=== PATIENT | male | born 1960 | race Caucasian/White ===

== ENCOUNTER 2017-04-12 09:12 | Inpatient (IN) | payer OTHER, MEDICAID ==
[~2017-04-12] VITALS: Ht 170.2 cm; Wt 75.3 kg
--- NOTE | 2017-04-12 09:12 | NUR ---
PATIENT BIBA TO BED 2
--- NOTE | 2017-04-12 09:15 | NUR ---
56/M yamilet from [facility] for evaluation of seizures starting this am around 0715. Per EMS, patient had approximately 4 seizures this morning tonic clonic. When medics arrived on scene, pt had another seizure. Versed 2.5 intranasal was given. Pt arrived to ED awake, normal mentation for patient. Patient nonverbal and this is baseline for patient. Hx seizure, epilepsy, MR, sturge hinojosa syndrome, dysphagia, glaucoma. Seizure precautions applied. Pt placed in a gown, on cardiac montior and blood pressure monitoring.
[2017-04-12 09:19] VITALS: BP 151/101
--- NOTE | 2017-04-12 09:23 | NUR ---
Dr. Hurley at bedside.
[2017-04-12 09:50] LABS: BASOPHILS % (AUTO) 0.6 % (0.0-2.0); EOSINOPHILS % (AUTO) 0.2 % (0.0-4.0); HEMATOCRIT 38.2 % (36-52); HEMOGLOBIN 12.8 g/dL (12.0-18.0); LYMPHOCYTES # (AUTO) 0.5 K/uL (2.0-11.5); MEAN CORPUSCULAR HEMOGLOBIN 29 pg (27-31); MEAN CORPUSCULAR HGB CONC 34 g/dL (33-37); MEAN CORPUSCULAR VOLUME 87 fL (80-94); MONOCYTES # (AUTO) 0.2 K/uL (0.8-1.0); MONOCYTES % (AUTO) 3.6 % (1.7-9.3); NEUTROPHILS % (AUTO) 88.6 % (42.2-75.2); PLATELET COUNT (AUTO) 249 K/uL (140-450); RED BLOOD CELL COUNT(AUTO) 4.39 MIL/uL (4.20-6.10); RED CELL DISTRIBUTION WIDTH 13.3 % (11.6-13.7); WHITE BLOOD COUNT (AUTO) 6.7 K/uL (4.8-10.8)
[2017-04-12 10:11] LABS: PHENOBARBITAL < 1 ug/ml (15-40)
[2017-04-12 10:12] LABS: ANION GAP 13.9 (8-16); CARBON DIOXIDE 27.7 mmol/L (21-32); POTASSIUM 4.6 mmol/L (3.5-5.1)
[2017-04-12] MEDS ORDERED: NACL 3% 500 ML IV ONE (10:15)
[2017-04-12] MEDS ORDERED: LORazepam 2 MG/ML VIAL IVP ONE (10:30)
[2017-04-12] MEDS ORDERED: ONDANSETRON 4 MG/2 ML VIAL IVP PRN (10:35)
[2017-04-12] MEDS ORDERED: ACETAMINOPHEN 325 MG TAB PO PRN (10:35)
[2017-04-12] MEDS ORDERED: LORazepam 2 MG/ML VIAL IVP PRN (10:35)
[2017-04-12] MEDS ORDERED: DOCUSATE SODIUM 100 MG GELCAP PO PRN (10:35)
[2017-04-12] MEDS ORDERED: LEVE1000 PO (10:42)
[2017-04-12] MEDS ORDERED: POLY17PD65 GT (10:42)
[2017-04-12] MEDS ORDERED: LEVE250T7 PO (10:42)
[2017-04-12] MEDS ORDERED: CALC1CAP45 PO (10:42)
[2017-04-12] MEDS ORDERED: LACT10SO1 PO (10:42)
[2017-04-12] MEDS ORDERED: ROB1 PO (10:42)
[2017-04-12] MEDS ORDERED: OXCA300S5 GT (10:42)
[2017-04-12] MEDS ORDERED: MULT-1328 GT (10:42)
[2017-04-12] MEDS ORDERED: CHLO1TAB42 PO (10:42)
[2017-04-12] MEDS ORDERED: FLOR250 PO (10:42)
[2017-04-12] MEDS ORDERED: NACL 3% 500 ML IV SCH ×2 (10:50→17:00)
[2017-04-12] MEDS ORDERED: NACL 0.9% 1,000 ML IV SCH ×2 (10:51→11:25)
[2017-04-12] MEDS ORDERED: ACET-2619 GT (10:56)
[2017-04-12] MEDS ORDERED: IBUP-2213 GT (10:56)
[2017-04-12] MEDS ORDERED: POTA10TE30 GT (10:56)
[2017-04-12] MEDS ORDERED: BISA-213 RC (10:56)
[2017-04-12] MEDS ORDERED: CARB200T1 GT (10:56)
[2017-04-12] MEDS ORDERED: SIMV20TA1 GT (10:56)
[2017-04-12] MEDS ORDERED: TIM.5OS OP (10:56)
[2017-04-12] MEDS ORDERED: MAGN400S60 GT (10:56)
[2017-04-12] MEDS ORDERED: OXCA150T2 PO (10:56)
[2017-04-12] MEDS ORDERED: NA P135N RC (10:56)
[2017-04-12] MEDS ORDERED: [UNRECOGNIZED DRUG - CODE] TP (10:56)
[2017-04-12 10:57] LABS: PHENYTOIN (DILANTIN) < 0.5 ug/ml (10.0-20.0)
[2017-04-12] MEDS ORDERED: PHENYTOIN 1,000 MG in NACL 0.9% 100 ML IV SCH (11:30)
--- NOTE | 2017-04-12 11:35 | NUR ---
Note undone in EDM - 04/12/17 at 1214 by [email or web address] PT DENIES N/V/D; SKIN IS INTACT, PINK/WARM/DRY; AAOX4, PERRL, WITH EVEN AND STEADY GAIT; LUNGS CLEAR BL, BREATHING UNLABORED; HR EVEN AND REGULAR, BL PERIPHERAL PULSES PRESENT; BS ACTIVE X4, NO TENDERNESS TO PALPATION, NO HEPATOSPLENOMEGALLY PALPATED, RESONANT TO PERCUSSION; PT DENIES ANY FEVER, CP, SOB, OR COUGH AT THIS TIME; PT STATES 0/10 PAIN AT THIS TIME; VSS; PATIENT POSITIONED FOR COMFORT; HOB ELEVATED; BEDRAILS UP X2; BED DOWN.PATIENT PRESENTS TO ED WITH [] . PT STATES [] . DENIES N/V/D; SKIN IS PINK/WARM/DRY; AAOX4 WITH EVEN AND STEADY GAIT; LUNGS CLEAR BL; HR EVEN AND REGULAR; PT DENIES ANY FEVER, CP, SOB, OR COUGH AT THIS TIME; PATIENT STATES PAIN OF 0/10 AT THIS TIME; VSS; PATIENT POSITIONED FOR COMFORT; HOB ELEVATED; BEDRAILS UP X2; BED DOWN. ER MD MADE AWARE OF PT STATUS.PATIENT PRESENTS TO ED WITH . PT STATES . DENIES N/V/D; SKIN IS PINK/WARM/DRY; AAOX4 WITH EVEN AND STEADY GAIT; LUNGS CLEAR BL; HR EVEN AND REGULAR; PT DENIES ANY FEVER, CP, SOB, OR COUGH AT THIS TIME; PATIENT STATES PAIN OF 0/10 AT THIS TIME; VSS; PATIENT POSITIONED FOR COMFORT; HOB ELEVATED; BEDRAILS UP X2; BED DOWN. ER MD MADE AWARE OF PT STATUS.
[2017-04-12] MEDS ORDERED: BISACODYL 10 MG SUPP RC PRN (11:50)
[2017-04-12] MEDS ORDERED: SODIUM PHOSPHATE 118 ML ENEM RC PRN (11:50)
[2017-04-12] MEDS ORDERED: MAGNESIUM HYDROXIDE 2400 MG/30 ML UDC GT PRN (11:50)
[2017-04-12] MEDS ORDERED: IBUPROFEN 600 MG TAB GT PRN (11:50)
[2017-04-12] MEDS ORDERED: PIPER/TAZO 3.375GM/D5W PREMIX 50 ML IV SCH (12:00)
--- NOTE | 2017-04-12 12:53 | NUR ---
Pt resting comfortably at this time. BP 82/45. IV bolus infusing, pt tolerating well. Will continue to monitor. Caregiver at bedside.
--- NOTE | 2017-04-12 13:39 | NUR ---
Dr. Ash called and advised her about the blood pressure 75/48 after receiving the 2L bolus.
[2017-04-12] MEDS ORDERED: NOREPINEPHRINE 4 MG in DEXTROSE 5% 250 ML IV PRN (13:40)
[2017-04-12] MEDS ORDERED: ALBUTEROL SULFATE/IPRATROPIU 3 ML SOL IH PRN (13:55)
[2017-04-12 13:59] LABS: ANION GAP 12.9 (8-16); CARBON DIOXIDE 26.8 mmol/L (21-32); CREATININE 1.2 mg/dL (0.7-1.3); POTASSIUM 4.7 mmol/L (3.5-5.1)
[2017-04-12] MEDS: PIPERACILLIN/TAZOBACTAM 3.375 GM in DEXTROSE 5% 50 ML IV SCH ×2 (14:00→20:53)
[2017-04-12 14:04] LABS: ALBUMIN 2.7 g/dL (3.4-5.0); BILIRUBIN,DIRECT 0.1 mg/dL (0.0-0.3); TOTAL BILIRUBIN 0.3 mg/dL (0.0-1.0)
[2017-04-12] MEDS: GLYCOPYRROLATE 1 MG TAB PO SCH ×2 (14:45→17:39)
[2017-04-12] MEDS: carBAMazepine 200 MG TAB GT SCH ×2 (14:45→17:27)
--- NOTE | 2017-04-12 15:02 | NUR ---
Levophed decreased to 4 mcg/min. BP 119/79 HR 71 O2 sat 100%
--- NOTE | 2017-04-12 15:30 | NUR ---
Pt placed on left lateral side using pillow for support to back. Wrinkles removed from under bed. Warm blanket provided.
--- NOTE | 2017-04-12 16:06 | NUR ---
Pt resting comfortably at this time. VSS. Caregiver at bedside. Comfort needs met.
[2017-04-12 16:17] LABS: MAGNESIUM 1.8 mg/dL (1.8-2.4); PHOSPHORUS 4.5 mg/dL (2.5-4.9)
[2017-04-12 16:18] LABS: FREE T4 (FREE THYROXINE) 0.78 ng/dL (0.76-1.46); THYROID STIMULATING HORMONE 0.48 uIU/mL (0.34-3.74)
[2017-04-12 16:26] LABS: BILIRUBIN,URINE NEGATIVE (NEGATIVE); BLOOD, URINE TRACE-I (NEGATIVE); LEUKOCYTE ESTERASE ,URINE 1+ (NEGATIVE); NITRITE, URINE NEGATIVE (NEGATIVE); UGLUCOSE NEGATIVE (NEGATIVE)
[2017-04-12 16:27] LABS: APPEARANCE,URINE HAZY (CLEAR)
[2017-04-12 16:28] LABS: COLOR,URINE YELLOW (YELLOW)
[2017-04-12 16:51] LABS: RBC,URINE 0-5 (RARE) /HPF (0-5); WBC,URINE TOO MANY TO COUNT /HPF (0-5)
[2017-04-12 17:01] LABS: BARBITURATE, URINE NEGATIVE ng/ml (NEG <=200)
[2017-04-12 17:02] LABS: BENZODIAZEPINE, URINE POSITIVE ng/mL (NEG <=200); CANNABINOID, URINE NEGATIVE ng/mL (NEG <=50); COCAINE, URINE NEGATIVE ng/mL (NEG <=300); OPIATE, URINE NEGATIVE ng/mL (NEG <=2000); PHENCYCLIDINE SCREEN,URINE NEGATIVE ng/mL (NEG <=25)
[2017-04-12] MEDS: NACL 0.9% 1,000 ML IV SCH (17:06)
--- NOTE | 2017-04-12 18:01 | NUR ---
Pt repositioned to right lateral side, pillow placed behind back, pt tolerated well. Warm blanket provided. Comfort needs met. Caregiver at bedside.
[2017-04-12 18:21] LABS: ANION GAP 12.8 (8-16); CARBON DIOXIDE 25.8 mmol/L (21-32); POTASSIUM 4.6 mmol/L (3.5-5.1)
[2017-04-12 18:22] LABS: CREATININE 1.1 mg/dL (0.7-1.3)
--- NOTE | 2017-04-12 19:23 | NUR ---
Pt report given to Jacob LEMONS. Transfer of care at this time.
--- NOTE | 2017-04-12 19:25 | NUR ---
SPOKE WITH MERCHANDISER RETAIL REPRESENTATIVE. OK TO GO ICU5.
[2017-04-12 19:26] LABS: PROTHROMBIN TIME 9.2 secs (10.8-13.4)
--- NOTE | 2017-04-12 20:05 | NUR ---
Patient will be admitted to care of ICU. Admited to DR. DONAHUE. Will go to room ICU-5. Belongings list completed. Report to NICKY LEMONS.
--- NOTE | 2017-04-12 20:10 | NUR ---
RECEIVED PT FROM ER VIA COLIN ACCOMAPNIED BY RN AND EMT. RECEIVED REPORT FROM CRISTO DIAS. INITIAL ASSESSMENT COMPLETED. PT IS NON VERBAL. ATTACHED TO LABOR ECONOMIST, PULSE OXIMETER. O2 @ 2LPM VIA NASAL CANNULA. IV ACCESS AT RIGHT WRIST 22G, IVF INFUSING WELL AND LEFT FOREARM 22G, ON LEVOPHED DRIP. GT IN PLACE. BED IN LOW POSITION. SEIZURE PRECAUTION, WITH SEIZURE PADS ATTACHED. WILL ATTACHED SCDS. SAFETY MEASURE ENSURE. WILL CONTINUE TO MONITOR.
[2017-04-12 20:15] VITALS: BP 133/101
[2017-04-12] MEDS: ALBUTEROL SULFATE/IPRATROPIU 3 ML SOL IH SCH (20:28)
[2017-04-12] MEDS ORDERED: PIPERACILLIN/TAZOBACTAM 3.375 GM VIAL IV ONE (20:29)
[2017-04-12 20:30] VITALS: BP 150/51
[2017-04-12 20:45] VITALS: BP 132/93
[2017-04-12] MEDS ORDERED: OXcarbazepine 150 MG TAB PO SCH (21:00)
[2017-04-12] MEDS ORDERED: VITAMIN D3 PO SCH (21:00)
[2017-04-12] MEDS ORDERED: LEVETIRACETAM 250 MG PO SCH (21:00)
[2017-04-12] MEDS: TIMOLOL OP 0.5% 5 ML BTL OP SCH (21:00)
[2017-04-12] MEDS ORDERED: [UNRECOGNIZED DRUG - OTHER] PO SCH (21:00)
[2017-04-12] MEDS ORDERED: OXCARBAZEPINE 300 MG GT SCH (21:00)
[2017-04-12] MEDS: NYSTATIN POW 100 MU/GM 15 GM BTL TP SCH (21:00)
[2017-04-12] MEDS ORDERED: levETIRAcetam 500 MG TAB PO SCH (21:00)
[2017-04-12] MEDS ORDERED: CALCIUM CARBONATE PO SCH (21:00)
[2017-04-12] MEDS ORDERED: NON-FORMULARY ITEM (Saccharomyces Boulardii* (Florastor*) 250 MG) PO SCH (21:00)
[2017-04-12 21:06] LABS: ANION GAP 14.8 (8-16); POTASSIUM 4.8 mmol/L (3.5-5.1)
--- NOTE | 2017-04-12 21:10 | NUR ---
DR. RAYMUNDO AT BEDSIDE. IVF DECREASE TO 10ML/HR ORDERED. 2049 LEVOPHED DRIP HELD. PT BP 132/93.
[2017-04-12] MEDS: PHENYTOIN 100 MG/4 ML UDC GT SCH (21:47)
[2017-04-12] MEDS: SIMVASTATIN 20 MG TAB GT SCH (21:47)
[2017-04-12] MEDS: POLYETHYLENE GLYCOL 17 GM/PKT GT SCH (21:48)
[2017-04-12 22:00] VITALS: BP 124/53
[2017-04-12] MEDS: VITAMIN D 400 IU TAB GT SCH (22:53)
[2017-04-12] MEDS: OXcarbazepine 150 MG TAB PO SCH (22:54)
[2017-04-12] MEDS: CALCIUM CARBONATE 500 MG TAB GT SCH (22:54)
[2017-04-12] MEDS: levETIRAcetam 100 MG/ML ORASYR GT SCH (22:55)
[2017-04-13] VITALS (9 sets, daily range): BP systolic 90–148; BP diastolic 51–104
--- NOTE | 2017-04-13 | NUR ---
0000 DOSE OF ZOSYN NOT GIVEN, TOO CLOSE TO PREVIOUS DOSE (2052).
--- NOTE | 2017-04-13 00:50 | NUR ---
UNABLE TO OBTAIN SPUTUM AT THIS TIME, SPUTUM CUP LEFT AT BEDSIDE
--- NOTE | 2017-04-13 04:30 | NUR ---
MORNING CARE DONE. PT TOLERATED WELL.
[2017-04-13 05:05] LABS: BASOPHILS % (AUTO) 0.6 % (0.0-2.0); EOSINOPHILS # (AUTO) 0.1 K/uL (0-0.4); HEMATOCRIT 36.9 % (36-52); HEMOGLOBIN 12.5 g/dL (12.0-18.0); LYMPHOCYTES # (AUTO) 0.8 K/uL (2.0-11.5); LYMPHOCYTES % (AUTO) 10.5 % (20.5-51.1); MEAN CORPUSCULAR HEMOGLOBIN 30 pg (27-31); MEAN CORPUSCULAR HGB CONC 34 g/dL (33-37); MEAN CORPUSCULAR VOLUME 89 fL (80-94); MONOCYTES # (AUTO) 0.4 K/uL (0.8-1.0); MONOCYTES % (AUTO) 5.9 % (1.7-9.3); PLATELET COUNT (AUTO) 186 K/uL (140-450); RED BLOOD CELL COUNT(AUTO) 4.14 MIL/uL (4.20-6.10); RED CELL DISTRIBUTION WIDTH 13.3 % (11.6-13.7); WHITE BLOOD COUNT (AUTO) 7.3 K/uL (4.8-10.8)
[2017-04-13] MEDS: PIPERACILLIN/TAZOBACTAM 3.375 GM in DEXTROSE 5% 50 ML IV SCH ×5 (05:40→17:32)
--- NOTE | 2017-04-13 06:13 | NUR ---
DR. DONAHUE AND DR. RAYMUNDO NOTIFIED CT HEAD WITHOUT CONTRAST WAS NOT DONE SINCE PATIENT IS RESTLESS AND KEEPS MOVING EVERYTIME YOU TOUCH HIM AND WILL NOT STAY STILL. DR. DONAHUE SAID THEY WILL LET ICU KNOW LATER IF THEY WILL CANCEL OR NOT THE CT HEAD. CHARGE NURSE AWARE. WILL ENDORSE TO AM SHIFT.
[2017-04-13] MEDS ORDERED: LORazepam 2 MG/ML VIAL IVP PRN (06:15)
--- NOTE | 2017-04-13 06:36 | NUR ---
REPORT GIVEN TO CRISTO SIMS.
[2017-04-13] MEDS: ALBUTEROL SULFATE/IPRATROPIU 3 ML SOL IH SCH ×3 (06:57→18:48)
[2017-04-13 07:02] LABS: ANION GAP 12.9 (8-16); CARBON DIOXIDE 25.9 mmol/L (21-32); CREATININE 0.9 mg/dL (0.7-1.3); POTASSIUM 3.8 mmol/L (3.5-5.1)
[2017-04-13 07:19] LABS: CHOL/HDL RATIO 1.9 (1-4.5); MAGNESIUM 1.8 mg/dL (1.8-2.4); PHOSPHORUS 2.9 mg/dL (2.5-4.9)
--- NOTE | 2017-04-13 07:20 | NUR ---
RECEIVED REPORT FORM CRISTO SIMS AT BEDSIDE, PT IS ASLEEP, VSS, FLACC 0, NO S/S OF DISTRESS, CLEAR LUNG SOUNDS, SR ON PRECISION LAYOUT WORKER, SOFT ABDOMEN WITH ACTIVE BOWEL SOUNDS, GT IN PLACE, WITH 0 RESIDUALS, ON PUREE DIET, IN CONTINENT, RIGID TO ALL EXTREMITIES, SKIN IS WARM AND DRY TO TOUCH, OPEN WOUND PRESENT (SEE WOUND ASSESSMENT), PERIPHERAL LINE TO RIGHT WRIST, 22GA, PATENT AND SL, LEFT FOREARM 22GA, RUNNING NS AT 10ML/HR, HOB ELEVATED 30 DEGREES, SAFETY PRECAUTION AND SEIZURE PRECAUTION IN PLACE, WILL CONTINUE TO MONITOR. Addendum: 04/13/17 at 1037 by Parth Garzon RN LEFT FACE HEMANGIOMA NOTED.
--- NOTE | 2017-04-13 07:40 | NUR ---
DR. PICKETT CAME IN TO SEE PT AT BEDSIDE, NO NEW ORDER AT THIS TIME.
--- NOTE | 2017-04-13 08:20 | NUR ---
PT IS OFF UNIT FOR CT HEAD VIA BED, ACCOMPANIED BY RIVERS AND LAKES BOATMAN AND RN.
--- NOTE | 2017-04-13 08:30 | NUR ---
TRIED TO FEED PT BF AGAIN, PT IS SHAKING HIS HEAD, NOT ABLE TO EAT AT THIS TIME. SNF MADE AWARE.
--- NOTE | 2017-04-13 08:53 | NUR ---
PATIENT HAS BEEN SCREENED AND CATEGORIZED HIGH NUTRITION RISK. PATIENT WILL BE SEEN WITHIN 1-2 DAYS OF ADMISSION. 04/12/17-04/13/[address]
[2017-04-13] MEDS ORDERED: VANCOMYCIN PER PHARMACY MC PRN (08:55)
[2017-04-13] MEDS ORDERED: [UNRECOGNIZED DRUG - OTHER] PO SCH (09:00)
[2017-04-13] MEDS ORDERED: NON-FORMULARY ITEM (Lactulose 15 ML) PO SCH (09:00)
[2017-04-13] MEDS ORDERED: VANCOMYCIN 1GM/DEXT 5% PREMIX 200 ML IV SCH (09:00)
[2017-04-13] MEDS ORDERED: NON-FORMULARY ITEM (Multivitamin with Minerals (Multivitamins with Minerals) 1 TAB) GT SCH (09:00)
--- NOTE | 2017-04-13 09:00 | NUR ---
PT IS BACK FROM CT. PT IS AGITATED, MOVING AROUND, REFUSED TO EAT BF, PULLED OUT O2 TUBE, REPOSITIONED PT WITH COMFORT POSITION, WILL CONTINUE TO MONITOR. PT'S CAREGIVER CAME TO SEE PT AT BEDSIDE, ANSWERED ALL THE QUESTIONS SHE NEEDED.
[2017-04-13] MEDS: MULTIVITAMIN/MINERALS 1 TAB GT SCH (09:04)
[2017-04-13] MEDS: TIMOLOL OP 0.5% 5 ML BTL OP SCH ×2 (09:04→22:29)
[2017-04-13] MEDS: LACTOBACILLUS RHAMNOSUS GG 1 EACH CAP GT SCH (09:04)
[2017-04-13] MEDS: carBAMazepine 200 MG TAB GT SCH ×3 (09:05→16:59)
[2017-04-13] MEDS: PHENYTOIN 100 MG/4 ML UDC GT SCH ×2 (09:06→22:29)
[2017-04-13] MEDS: LACTULOSE 20 GM/30 ML UDC GT SCH (09:06)
[2017-04-13] MEDS: levETIRAcetam 100 MG/ML ORASYR GT SCH ×2 (09:07→22:30)
[2017-04-13] MEDS: NYSTATIN POW 100 MU/GM 15 GM BTL TP SCH ×2 (09:08→21:00)
--- NOTE | 2017-04-13 09:20 | NUR ---
MEDICATION GIVEN VIA GT, PT TOLERATED WELL.
[2017-04-13] MEDS: CALCIUM CARBONATE 500 MG TAB GT SCH ×2 (09:51→22:30)
[2017-04-13] MEDS: GLYCOPYRROLATE 1 MG TAB PO SCH ×3 (09:52→16:59)
[2017-04-13] MEDS: OXcarbazepine 150 MG TAB PO SCH ×2 (09:52→22:31)
[2017-04-13] MEDS: VITAMIN D 400 IU TAB GT SCH ×2 (09:53→22:30)
[2017-04-13] MEDS: POTASSIUM CHLORIDE 20% 40 MEQ/15 ML UDC GT SCH (09:54)
[2017-04-13] MEDS ORDERED: POTASSIUM CHLORIDE 20% 40 MEQ/15 ML UDC ONE (09:54)
--- NOTE | 2017-04-13 10:00 | NUR ---
PT IS STILL MOVING AROUND IN BED, VSS, NO S/S OF DISTRESS, POSITION CHANGED FOR OFF LOAD PRESSURE.
--- NOTE | 2017-04-13 11:00 | NUR ---
US AT BEDSIDE
[2017-04-13] MEDS ORDERED: IBUPROFEN 400 MG TAB ONE (11:25)
[2017-04-13] MEDS: VANCOMYCIN 750 MG in DEXTROSE 5% 250 ML IV SCH ×2 (11:27→22:48)
--- NOTE | 2017-04-13 11:27 | NUR ---
PT IS VERY RESTLESSNESS, MOVING HEAD AND WAVING HANDS A LOT, PAIN MEDICATION GIVEN. WILL CONTINUE TO MONITOR.
--- NOTE | 2017-04-13 12:00 | NUR ---
TRIED TO FEED PT AGAIN, PT NOT ABLE TO SWALLOW AND COUGHING THE FOOD OUT, NOTED.
--- NOTE | 2017-04-13 12:25 | NUR ---
DR. BANKS CAME TO SEE PT AT BEDSIDE, NO NEW ORDER AT THIS TIME.
--- NOTE | 2017-04-13 14:00 | NUR ---
PT IS ASLEEP IN BED, NO S/S OF DISTRESS, VSS, POSITION CHANGED FOR OFF LOAD PRESSURE.
--- NOTE | 2017-04-13 14:54 | NUR ---
04/13/2017 RD INITIAL ASSESSMENT COMPLETED PLEASE REFER TO NUTRITION ASSESSMENT UNDER CARE ACTIVITY FOR ESTIMATED NUTRITIONAL NEEDS. CONTINUE PUREED DIET TOLERATED RN TO CONTINUE TO ASSIST WITH FEEDS DURING MEALS IF CONSIDERING USING G-TUBE FOR NUTIRTION SUPPORT, BOOST PLUS, 1 CAN 4 TIMES PER DAY WILL PROVIDE 1440 KCALS AND 56 GM PRO/DAY TO MEET 97% EST KCAL AND 95% EST PRO NEEDS/DAY. RD TO FOLLOW-UP IN 2-3 DAYS PATIENT IS HIGH RISK. POPEYE [address]
--- NOTE | 2017-04-13 15:40 | NUR ---
WOUND CARE EVALUATION NOTE: REASON FOR EVALUATION: LOW EDMOND SCORE COMPLETE SKIN ASSESSMENT DONE ON THIS 56 Y/O MALE PATIENT TO [facility], WITH INITIAL DIAGNOSIS OF SEIZURE ACTIVITY. PAST MEDICAL HISTORY INCLUDE STURGE QUEZADA. ALL ABOVE INFORMATION WAS OBTAINED FROM THE ADMISSION H&P. LABS ARE WBC 7.3, H/H 12.5/36.9, GLUCOSE 117 AND ALBUMIN 2.7, PT/INR 9.2/0.9 AND PTT 33.3. CURRENT MEDS INCLUDE VANCOMYCIN, SIMVASTATIN, ALBUTEROL AND NYSTATIN. PATIENT IS AWAKE, UNABLE TO FOLLOW COMMANDS. SKIN WARM TO TOUCH WNL, TOENAILS ARETHIN AND SHORT, NO EDEMA,NO HAIR GROWTH AND BILATERAL PEDAL PULSES.LOWER EXTREMITIES CONTRACTURE, BLADDER AND BOWEL INCONTINENT. NEEDS MAX ASSISTANCE IN TURNING. PT IS RESTLESS, INITIAL PLAN OF CARE AND PRESSURE PREVENTIVE MEASURES DISCUSSED WITH PRIMARY RN. INTEGUMENTARY: L/R GROINS- INTERTRIGO RIGHT / LEFT BUTTOCKS -INCONTINENT ASSOCIATE DERMATITIS (IAD) WITH DRY PEELING SKIN POSSIBLE FROM FRICTION SACRALCOCCYX AND L/R MEDIAL KNEES-BLANCHABLE REDNESS PERINEUM-IAD RUQ ABD. MULTIPLE DRY SCABS WITH LARGEST MEASURED 0.2X0.2CM RECOMMENDATIONS: -CLEANSE L/R GROINS WITH SOAP AND WATER, PAT DRY, APPLY ANTIFUNGAL CREAM BIDWC AND PRN IF SOILING -SACRALCOCCYX, BILATERAL BUTTOCKS, PERINEUM: CLEANSE WITH MILD SOAP AND WATER, PAT DRY, APPLY HYDRAGUARD BIDWC AND PRN WITH SOILING LEAVE OPEN TO AIR-PAINT -KEEP R/L KNEES SEPERATE BY POSITION WITH PILLOWS TO AVOID FRICTION -TURN AND REPOSITION PATIENT Q2H -ASSESS AND MONITOR SKIN CONDITION DURING POSITION CHANGE, PLEASE PAY ATTENTION TO L/R BUTTOCKS AND KNEES -OFFLOAD BILATERAL HEELS BY PLACING PILLOWS UNDER CALVES AT ALL TIMES, UNLESS OTHERWISE CONTRAINDICATED -KEEP SKIN CLEAN AND DRY AT ALL TIMES. -PRESSURE REDISTRIBUTION SURFACE THERAPY. RECOMMENDATIONS DISCUSSED WITH PRIMARY RN AND DR. BLANCHARD WILL FOLLOW UP PATIENT Q7-10 DAYS AND PRN. PLEASE CONTACT WOUND CARE NURSE FOR ANY QUESTIONS AND CHANGES IN WOUND CONDITION.
--- NOTE | 2017-04-13 16:00 | NUR ---
PM CARE PROVIDED, PT TOLERATED WELL, POSITION CHANGED FOR OFF LOAD PRESSURE. VSS.
[2017-04-13] MEDS: NACL 0.9% 1,000 ML IV SCH ×2 (16:35→22:27)
[2017-04-13] MEDS ORDERED: NACL 0.9% 1,000 ML IV SCH (18:30)
--- NOTE | 2017-04-13 18:30 | NUR ---
PT BP KEEP DROPPING, NOT ABLE TO TRANSFER AT THIS TIME, DR. RAYMUNDO MADE AWARE, AND CAME TO CHECK ON PT AT BEDSIDE, WILL PUT ORDER IN AND CARRY OUT.
--- NOTE | 2017-04-13 18:55 | NUR ---
PATIENT UNABLE TO KEEP HHN MASK ON AND PATIENT GETTING RESTLESS, TOOK MASK OFF SO PATIENT MAY CALM DOWN, ONLY 3 MINUTES OF HHN MEDICATION MAY HAVE BEEN ADMINISTERED
--- NOTE | 2017-04-13 19:30 | NUR ---
REPORT GIVEN TO CRISTO MORALES AT BEDSIDE FOR CONTINUE OF CARE, PT IS IN STABLE CONDITION AT THIS TIME.
--- NOTE | 2017-04-13 19:45 | NUR ---
RECEIVED REPORT FROM MAURICIO LEMONS. PT A/O X 1. DOES NOT FOLLOW COMMAND. NONVERBAL. PERRL NOTED. FLACC 0. EQUAL, UNLABORED BREATH NOTED. ON 2 L NC. TOLERATING WELL. SKIN NONINTACT. WOUND NOTED ON BUTTOCKS. NO DRAINAGE NOTED. CONTINUING WOUND AND SKIN CARE TX ORDERED. IV NOTED ON LEFT FOREARM, FOREARM COLD TO TOUCH AND APPEARS SWOLLEN. PT AGITATED TO ASSESSMENT, WILL REASSESS AFTER PT CALMS AND NECESSARY SUPPLIES ARE GATHERED. IV NOTED ON R WRIST. CANNULA APPEARS TO BE PULLED OUT, WILL REMOVE PROPERLY WHEN REASSESSING PATIENT PT IS WAVING BOTH ARM AWAY FROM TOUCH. SWELLING NOTED ON BILATERAL FOOT. PT APPEARS TO BE STIFF IN THE EXTREMITIES. ABDOMEN SOFT, NONTENDER. BOWEL SOUND PRESENT X [address] CONDOM CATHETER IN PLACE. NO URINE OUTPUT OF NOW. NO S/SX OF ACUTE DISTRESS NOTED. VITALS WITHIN NORMAL. BED AT LOWEST SETTING. CALL LIGHT WITHIN REACH. WILL CONTINUE TO MONITOR. Addendum: 04/13/17 at 2238 by Sam Oliver RN GTUBE IN PLACE. 0 RESIDUAL NOTED.
--- NOTE | 2017-04-13 20:00 | NUR ---
ABNORMALITY NOTED ON PT'S LEFT UPPER EXTREMITY TO HAND. LEFT UPPER ARM NOTED SWOLLEN AND MILDLY HARD ON TOUCH. LEFT FOREARM ALSO NOTED TO BE SWOLLEN, HARD TO TOUCH, AND COLD. WEEPING NOTED TO LEFT FOREARM, MULTIPLE BLISTER NOTED TO LEFT FOREARM. LEFT HAND APPEARS SWOLLEN AND DISCOLORED WITH BLUE FINGERTIPS. REMOVED ARM BANDS. HOT COMPRESS PLACED ON LEFT ARM. LEFT ARM ELEVATED. WILL CONTINUE TO MONITOR. LEFT FOREARM IV REMOVED. RIGHT WRIST IV ALSO REMOVED AFTER PT PULLED CANNULA OUT.
--- NOTE | 2017-04-13 20:40 | NUR ---
MD CONTACTED REGARDING INABILITY TO PLACE NEW IV AND NO IV ACCESS. AWAITING NEW ORDERS.
[2017-04-13] MEDS ORDERED: LORazepam 2 MG/ML VIAL IVP SCH (20:45)
[2017-04-13] MEDS: SIMVASTATIN 20 MG TAB GT SCH (21:00)
[2017-04-13] MEDS ORDERED: PHENYTOIN 100 MG/4 ML UDC ONE (21:02)
[2017-04-13] MEDS ORDERED: LORazepam 2 MG/ML VIAL ONE (21:14)
--- NOTE | 2017-04-13 21:30 | NUR ---
DR. RAYMUNDO AT BEDSIDE FOR CENTRAL LINE INSERTION. CONSENT IN CHART. TIME OUT DONE. ULTRASOUND AT BEDSIDE . WILL CONTINUE TO MONITOR.
--- NOTE | 2017-04-13 21:32 | NUR ---
ATIVAN GIVEN IM INSTEAD OF IV D/T NO IV SITE. ORDERED BY DR. RAYMUNDO.
--- NOTE | 2017-04-13 22:21 | NUR ---
CENTRAL LINE PLACEMENT DONE. XRAY AT BEDSIDE TO PERFORM CONFIRMATION XRAY.
[2017-04-13] MEDS ORDERED: LORazepam 2 MG/ML VIAL IM/IVP SCH (22:25)
--- NOTE | 2017-04-13 22:26 | NUR ---
MIKA TO USE CENTRAL LINE PER DR. RAYMUNDO
[2017-04-13] MEDS: POLYETHYLENE GLYCOL 17 GM/PKT GT SCH (22:29)
--- NOTE | 2017-04-13 22:30 | NUR ---
BED BATH GIVEN. PT TOLERATED WELL. WILL CONTINUE TO MONITOR FOR CHANGES.
--- NOTE | 2017-04-13 22:38 | NUR ---
0 RESIDUAL NOTED IN GTUBE. MEDICATION ADMINISTERED ORDERED. TOLERATED WELL.
--- NOTE | 2017-04-13 23:00 | NUR ---
PT SLEEPING IN BED. NO S/SX OF ACUTE DISTRESS NOTED. FLACC 0. CALM AT THIS TIME.
[2017-04-14] VITALS (9 sets, daily range): BP systolic 85–109; BP diastolic 44–73
--- NOTE | 2017-04-14 | NUR ---
PT REMAINS SLEEPING. AWAKEN TO TOUCH. NO S/SX OF ACUTE DISTRESS. WILL CONTINUE TO MONITOR.
[2017-04-14] MEDS: NACL 0.9% 1,000 ML IV SCH ×3 (00:39→21:04)
[2017-04-14] MEDS: PIPERACILLIN/TAZOBACTAM 3.375 GM in DEXTROSE 5% 50 ML IV SCH ×5 (00:39→23:30)
--- NOTE | 2017-04-14 01:00 | NUR ---
PT REMAINS SLEEPING. FLACC 0. VITALS SIGN REMAINS STABLE.
--- NOTE | 2017-04-14 03:00 | NUR ---
PT SLEEPING IN BED. NO S/SX OF ACUTE DISTRESS NOTED. FLACC 0. CALM AT THIS TIME.
--- NOTE | 2017-04-14 04:00 | NUR ---
LEFT ARM SWELLING DISSIPATING. LEFT UPPER EXTREMITY SKIN IS NOW DRY, WARM, PINK. NO DISCOLORATION NOTED ON HAND OR NAIL BED. BLISTER HAS GONE DOWN SIGNIFICANTLY. WILL CONTINUE TO MONITOR.
[2017-04-14 05:15] LABS: BASOPHILS # (AUTO) 0.2 K/uL (0.00-0.22); BASOPHILS % (AUTO) 3.2 % (0.0-2.0); EOSINOPHILS # (AUTO) 0.1 K/uL (0-0.4); EOSINOPHILS % (AUTO) 1.7 % (0.0-4.0); HEMATOCRIT 29.6 % (36-52); HEMOGLOBIN 9.6 g/dL (12.0-18.0); LYMPHOCYTES # (AUTO) 1.6 K/uL (2.0-11.5); LYMPHOCYTES % (AUTO) 32.5 % (20.5-51.1); MEAN CORPUSCULAR HEMOGLOBIN 29 pg (27-31); MEAN CORPUSCULAR HGB CONC 32 g/dL (33-37); MEAN CORPUSCULAR VOLUME 89 fL (80-94); MONOCYTES # (AUTO) 0.4 K/uL (0.8-1.0); MONOCYTES % (AUTO) 8.4 % (1.7-9.3); NEUTROPHILS # (AUTO) 2.5 K/uL (1.8-7.7); NEUTROPHILS % (AUTO) 54.2 % (42.2-75.2); PLATELET COUNT (AUTO) 148 K/uL (140-450); RED BLOOD CELL COUNT(AUTO) 3.32 MIL/uL (4.20-6.10); RED CELL DISTRIBUTION WIDTH 13.6 % (11.6-13.7); WHITE BLOOD COUNT (AUTO) 4.8 K/uL (4.8-10.8)
--- NOTE | 2017-04-14 05:34 | NUR ---
DR. BLANCHARD AT BEDSIDE TO SEE PT. UPDATE GIVEN. AWAITING NEW ORDERS.
--- NOTE | 2017-04-14 06:30 | NUR ---
PT AWAKE IN BED. MOVING BOTH ARM IN THE AIR. APPEARS CALM AT THIS TIME. FLACC 0. NO S/SX OF ACUTE DISTRESS NOTED.
[2017-04-14 06:39] LABS: ANION GAP 12.1 (8-16); CARBON DIOXIDE 24.9 mmol/L (21-32); CREATININE 1.2 mg/dL (0.7-1.3)
[2017-04-14 06:42] LABS: MAGNESIUM 2.2 mg/dL (1.8-2.4); PHOSPHORUS 3.6 mg/dL (2.5-4.9)
--- NOTE | 2017-04-14 07:30 | NUR ---
RECEIVED PT FROM PM SHIFT RN. PT IS NON-VERBAL AND UNABLE TO FOLLOW COMMAND. RESPIRATION IS EVEN AND UNLABORED, ON OXYGEN 2L VIA NASAL CANNULAR. SINUS RHYTHM ON THE MONITOR.ABDOMEN IS SOFT AND NON TENDER. PT ON CONDOM CATH WITH URINE OUTPUT FROM PM SHIFT. PT HAS MITTEN BILATERALLY. SEIZURE PRECAUTION IMPLEMENTED WITH PADDING AT THE SIDE OF THE BED. SKIN WARM TO TOUCH. IV SITE AT LEFT IJ CENTRAL LINE WITH TRIPLE LUMENS PATENT AND INTACT WITH NS INFUSING AT 75ML/HR. SAFETY PRECAUTION, BED IN LOWEST POSITION, CALL LIGHT WITHIN REACH. WILL CONTINUE TO MONITOR.
[2017-04-14] MEDS: ALBUTEROL SULFATE/IPRATROPIU 3 ML SOL IH SCH ×3 (08:03→19:19)
--- NOTE | 2017-04-14 08:05 | NUR ---
RESIDENT GROUP IN TO SEE PT. REPORTED NO URINE OUTPUT FROM PM SHIFT. WILL FOLLOW UP ON ORDERS.
[2017-04-14] MEDS: LACTULOSE 20 GM/30 ML UDC GT SCH (09:32)
[2017-04-14] MEDS: PHENYTOIN 100 MG/4 ML UDC GT SCH ×2 (09:33→21:03)
[2017-04-14] MEDS: MULTIVITAMIN/MINERALS 1 TAB GT SCH (09:33)
[2017-04-14] MEDS: LACTOBACILLUS RHAMNOSUS GG 1 EACH CAP GT SCH (09:33)
[2017-04-14] MEDS: carBAMazepine 200 MG TAB GT SCH ×3 (09:33→16:45)
--- NOTE | 2017-04-14 09:43 | NUR ---
DR. TOM BLANCHARD IN TO SEE PT AND NOTIFIED OF PHENYTOIN LEVAL 8.7. ATTEMPTED TO FEED THE PT HOWEVER PT UNABLE TO SWALLOW AT THIS TIME. DR.CRYSTAL BLANCHARD MADE AWARE AND STATED THAT HOLD PO DIET UNTIL SEEN BY PROVIDER EDUCATION SPECIALIST AND ST MORRELL. CHARGE NURSE IS CALLING SPEECH THERAPIST FOR ST MORRELL ORDER. WILL CONTINUE TO MONITOR AND FOLLOW UP ON ORDERS.
[2017-04-14] MEDS: GLYCOPYRROLATE 1 MG TAB PO SCH ×3 (09:44→16:46)
[2017-04-14] MEDS: levETIRAcetam 100 MG/ML ORASYR GT SCH ×2 (09:45→20:48)
[2017-04-14] MEDS: CALCIUM CARBONATE 500 MG TAB GT SCH ×2 (09:45→20:47)
[2017-04-14] MEDS: OXcarbazepine 150 MG TAB PO SCH ×2 (09:47→20:47)
[2017-04-14] MEDS: VITAMIN D 400 IU TAB GT SCH ×2 (09:47→20:48)
[2017-04-14] MEDS ORDERED: POTASSIUM CHLORIDE 20% 40 MEQ/15 ML UDC ONE (09:56)
[2017-04-14] MEDS: POTASSIUM CHLORIDE 20% 40 MEQ/15 ML UDC GT SCH (09:58)
[2017-04-14] MEDS: TIMOLOL OP 0.5% 5 ML BTL OP SCH ×2 (10:00→20:48)
--- NOTE | 2017-04-14 10:00 | NUR ---
SPEECH THERAPIST IN TO SEE PT FOR ST EVAL ORDER. WILL FOLLOW UP ON ORDERS.
[2017-04-14] MEDS: NYSTATIN POW 100 MU/GM 15 GM BTL TP SCH ×2 (10:01→21:00)
--- NOTE | 2017-04-14 10:10 | NUR ---
DR. CASSIDY IN TO SEE PT. WILL FOLLOW UP ON ORDERS.
--- NOTE | 2017-04-14 10:15 | NUR ---
CHARGE NURSE INFORMED ME THAT PT'S MRSA NARE SCREEN RESULT NOTED WITH POSITIVE AND DR. TOM BLANCHARD WAS NOTIFIED. WILL FOLLOW UP ON ORDERS.
--- NOTE | 2017-04-14 10:24 | NUR ---
RESOLUTION AGENT note (bedside swallow evaluation completed) [id number]. Bedside swallow evaluation completed, please see report for details. RESOLUTION AGENT provided pt with education regarding purpose of evaluation and rationale for recommendations. Pt unable to benefit from education provided at this time. No family/caregivers present at this time. Recommend: 1) STRICT NPO (oral cares only) 2) continue alternative method(s) of nutrition/hydration/medication vs comfort measures, as appropriate 3) no further RESOLUTION AGENT intervention indicated at this time. Physician may reorder if pt's status improves/warrants, as appropriate. G-codes: [id number] [facility] NOMS level 1. PVE for d/w RN (Kane) prior to and following bedside swallow evaluation completion.
[2017-04-14] MEDS: CHLORHEXADINE GLUC 2% CLOTH TP SCH (11:20)
--- NOTE | 2017-04-14 11:35 | NUR ---
REPORTED TO DR. TOM BLANCHARD REGARDING UNSUCCESSFUL INSERTION OF WEST CATH DUE TO MEETING RESISTANCE DURING INSERTION AND NO URINE NOTED. NOTIFIED DR. BLANCHARD ABOUT ST EVAL AND RECOMMENDATION. WILL FOLLOW UP ON ORDERS.
--- NOTE | 2017-04-14 12:00 | NUR ---
CALLED IN PLACE TO ULTRASOUND DEPT FOR FOLLOW UP THE ORDER AND THEY MADE AWARE OF IT.
--- NOTE | 2017-04-14 12:35 | NUR ---
CALLED LAB FOR FOLLOW UP THE VANCOMYCIN TROUGH LEVEL STILL PENDING RESULT AND THEY STATED THAT THEY AWARE OF IT AND STILL WORKING ON IT. PHARMACY MADE AWARE. WILL CONTINUE TO MONITOR.
--- NOTE | 2017-04-14 13:00 | NUR ---
CALLED ULTRASOUND DEPT AND REQUESTED TO HAVE DONE FOR THIS PT'S ULTRASOUND OF KIDNEY TO CHECK BLADDER RESIDUAL. THEY STATED THAT SOMEONE WILL BE HERE SOON. DR. TOM BLANCHARD AWARE.
--- NOTE | 2017-04-14 13:00 | NUR ---
Attempted to contact patient's [facility] caseworker intake Larissa Lagos . No response and this physician underwriter left her a Voicemail MSG to return call [facility].
--- NOTE | 2017-04-14 14:00 | NUR ---
DR. BANKS IN TO SEE PT AND WILL FOLLOW UP ON ORDER. ULTRASOUND DEPT WAS CALLED AND REQUESTED TO COME FOR ULTRASOUND [place]. THEY STATED THAT SOMEONE IS COMING ANYTIME SOON.
--- NOTE | 2017-04-14 14:30 | NUR ---
RECEIVED PATIENT FROM EMERGENCY ROOM NURSE. PATIENT HAS AN IJV CENTRAL LINE IN PLACE ON THE LEFT SIDE. PATIENT IS AWAKE BUT APHASIC. PATIENT HAS DARK RED FACIAL BROOK NOTED ON LEFT SIDE OF PATIENT'S FACE COVERING MOST OF HIS EYE. PATIENT IS APHASIC AND NOT ORIENTED TO HIS NAME. PATIENT BLOOD PRESSURE IS 96/53 AT THIS TIME. NO SEIZURES NOTED. SEIZURES PRECAUTIONS IN PLACE FOR PATIENT. SKIN ABRASION NOTED ON PATIENT'S LEFT ARM AND COVERED WITH TRANSPARENT DRESSING. PATIENT HAS MITTENS ON BILATERAL UPPER EXTREMITIES. G-TUBE NOTED ON ABDOMEN INTACT AND USED FOR MEDICATIONS. BED LOWERED AND UPDATED BOARD. WILL CONTINUE TO MONITOR PATIENT.
--- NOTE | 2017-04-14 14:30 | NUR ---
PATIENT WAS TRANSFERRED TO TELEMETRY UNIT ROOM 115 AND REPORT GIVEN TO CRISTO NUNN AT BEDSIDE. PT IS STABLE.
--- NOTE | 2017-04-14 15:20 | NUR ---
16F WEST CATHETER INSERTED. PATIENT TOLERATED WELL. WEST CATHETER DRAINING DARK BRO URINE
[2017-04-14] MEDS ORDERED: carBAMazepine 200 MG TAB ONE (16:39)
--- NOTE | 2017-04-14 17:45 | NUR ---
MADE DR BLANCHARD AWARE OF PATIENT'S TEMP OF 96 DEGREES FAHRENHEIT. ROOM THERMOSTAT SET TO WARM AND PATIENT COVERED WITH BLANKETS. PATIENT ASLEEP WITH NO S/S OF DISTRESS NOTED. PER DR BLANCHARD, CONTINUE TO MONITOR PATIENT
[2017-04-14] MEDS ORDERED: ALBUTEROL SULFATE/IPRATROPIU 3 ML SOL IH ONE (19:00)
--- NOTE | 2017-04-14 19:25 | NUR ---
GAVE BEDSIDE REPORT TO NIGHTSHIFT NURSE. PATIENT IS CURRENTLY RECEIVING A BREATHING TREATMENT. PATIENT IS IN STABLE CONDITION.
--- NOTE | 2017-04-14 19:28 | NUR ---
RECEIVED FROM AM RN IN BED SLEEPING. WAKES UP WHEN TOUCHED. APHASIC AND MENTALLY CHALLENGED PT. CENTRAL LINE TO LEFT IJV. WITH DRESSING INTACT. TOTAL CARE. TELEMETRY MONITORING. DX. OF SEIZURES. WEST CATHETER IN PLACE DRAINING WITH YELLOW URINE. GT IN PLACE. SIDERAILS PADDED FOR SEIZURE PRECAUTIONS. NEEDS WILL BE ANTICIPATED AND WILL BE MET. WILL BE TURNED Q 2H.
[2017-04-14] MEDS ORDERED: PHENYTOIN 100 MG/4 ML UDC ONE (20:58)
[2017-04-14] MEDS ORDERED: SIMVASTATIN 20 MG TAB ONE (20:59)
[2017-04-14] MEDS ORDERED: POLYETHYLENE GLYCOL 17 GM/PKT ONE (21:00)
[2017-04-14] MEDS: POLYETHYLENE GLYCOL 17 GM/PKT GT SCH (21:02)
[2017-04-14] MEDS: SIMVASTATIN 20 MG TAB GT SCH (21:03)
--- NOTE | 2017-04-14 22:00 | NUR ---
PT. TURNED TO SIDES Q 2H . TOTAL CARE. NEEDS WILL BE ANTICIPATED AND WILL BE MET. TELEMETRY MONITORING. CL PORTS FLUSHED. PATENT . NO SEIZURES REPORTED OR NOTED AT THIS TIME.
[2017-04-14] MEDS ORDERED: VANCOMYCIN 1,250 MG in DEXTROSE 5% 250 ML IV SCH (23:00)
[2017-04-14] MEDS ORDERED: VANCOMYCIN 500 MG VIAL ONE (23:21)
[2017-04-14] MEDS ORDERED: VANCOMYCIN 1,000 MG VIAL ONE (23:22)
[2017-04-15 00:23] VITALS: BP 90/50
--- NOTE | 2017-04-15 00:26 | NUR ---
PT. KEPT CLEAN BY CNAS. TURNED Q 2H WITH PILLOW SUPPORT TO PRESSURE AREAS. TOTAL CARE. NEEDS ANTICIPATED AND MET. ISOLATION PRECAUTIONS RT HX. MRSA NARES. 02 SAT 100 %.
--- NOTE | 2017-04-15 02:26 | NUR ---
SLEEPING. NO RESTLESSNESS. TOTAL CARE. NEEDS ANTICIPATED AND MET.ON 02 AT 4LPM/NC. 02 SAT 98%.TELEMETRY MONITORING.
[2017-04-15] MEDS: NYSTATIN POW 100 MU/GM 15 GM BTL TP SCH ×3 (02:46→20:21)
--- NOTE | 2017-04-15 04:00 | NUR ---
PT. ATTENDED TO BY CNAS. PERSONAL HYGIENE CARE RENDERED. TOTAL CARE. TELEMETRY MONITORING. NO SOB. WITH 02 PER N/C . TURNED Q 2H WITH PILLOW SUPPORT TO PRESSURE AREAS.
[2017-04-15 04:12] VITALS: BP 125/79
[2017-04-15] MEDS: PIPERACILLIN/TAZOBACTAM 3.375 GM in DEXTROSE 5% 50 ML IV SCH (05:18)
[2017-04-15 06:50] LABS: EOSINOPHILS # (AUTO) 0.1 K/uL (0-0.4); EOSINOPHILS % (AUTO) 2.6 % (0.0-4.0); HEMATOCRIT 28.5 % (36-52); HEMOGLOBIN 9.3 g/dL (12.0-18.0); LYMPHOCYTES # (AUTO) 0.8 K/uL (2.0-11.5); LYMPHOCYTES % (AUTO) 21.6 % (20.5-51.1); MEAN CORPUSCULAR HEMOGLOBIN 29 pg (27-31); MEAN CORPUSCULAR HGB CONC 33 g/dL (33-37); MEAN CORPUSCULAR VOLUME 89 fL (80-94); MONOCYTES # (AUTO) 0.3 K/uL (0.8-1.0); NEUTROPHILS # (AUTO) 2.7 K/uL (1.8-7.7); NEUTROPHILS % (AUTO) 67.8 % (42.2-75.2); PLATELET COUNT (AUTO) 143 K/uL (140-450); RED CELL DISTRIBUTION WIDTH 13.8 % (11.6-13.7); WHITE BLOOD COUNT (AUTO) 3.9 K/uL (4.8-10.8)
[2017-04-15 06:55] LABS: MAGNESIUM 1.9 mg/dL (1.8-2.4); PHOSPHORUS 3.8 mg/dL (2.5-4.9)
[2017-04-15 06:56] LABS: ANION GAP 13.2 (8-16); CARBON DIOXIDE 23.9 mmol/L (21-32); CREATININE 1.1 mg/dL (0.7-1.3); POTASSIUM 4.1 mmol/L (3.5-5.1)
--- NOTE | 2017-04-15 07:09 | NUR ---
ENDORSED TO THE NEXT RN FOR CONTINUITY OF CARE. TELEMETRY MONITORING.
--- NOTE | 2017-04-15 07:10 | NUR ---
RECEIVED REPORT FROM COLD MOLDING PRESS OPERATOR NURSE. PATIENT LYING IN BED, NO DISTRESS NOTED, FLACC 0. PATIENT IS AA, APHASIC, NON-VERBAL, SKIN COLOR APPROPRIATE TO ETHNICITY, WARM TO TOUCH. HAS LEFT UPPER ARM SKIN HEALING SKIN ABRASION, DRESSING INTACT AND DRY, REDNESS ON COCCYX AREA, HOWEVER, SKIN IS INTACT. HAS LEFT CENTRAL LINE, TRIPLE LUMEN, THAT IS INTACT, PATENT, AND INFUSING IVF PER ORDERS. MITTENS ON B/L HANDS DUE TO PULLING ON LINES. WEST CATHETER IN PLACE, INTACT, PATENT AND DRAINING CLEAR YELLOW URINE. GTUBE SITE INTACT, PATENT, NO RESIDUALS NOTED. REVIEWED PLAN OF CARE WITH PATIENT. UNABLE TO COMPREHEND, REINFORCEMENT NEEDED. SAFETY MEASURES IN PLACE, CALL LIGHT WITHIN REACH, SEIZURE PRECAUTIONS IN PLACE, FALL PREVENTIONS IN PLACE. WILL CONTINUE TO MONITOR.
[2017-04-15 08:00] VITALS: BP 116/79
[2017-04-15] MEDS ORDERED: ALBUTEROL SULFATE/IPRATROPIU 3 ML SOL IH ONE ×3 (08:18→13:22)
[2017-04-15] MEDS ORDERED: DOCUSATE SODIUM 100 MG GELCAP PO ONE (08:23)
[2017-04-15] MEDS: ALBUTEROL SULFATE/IPRATROPIU 3 ML SOL IH SCH ×3 (08:23→19:45)
--- NOTE | 2017-04-15 09:06 | NUR ---
PATIENT LYING DOWN IN BED. NO DISTRESS NOTED. CONDITION UNCHANGED. WEST CATHETER REMOVED PER MD ORDERS. PATIENT TOLERATED WELL. WILL CONTINUE TO MONITOR.
[2017-04-15] MEDS ORDERED: LACTULOSE 20 GM/30 ML UDC ONE (10:57)
[2017-04-15] MEDS ORDERED: POTASSIUM CHLORIDE 20% 40 MEQ/15 ML UDC ONE (10:58)
[2017-04-15] MEDS ORDERED: GLYCOPYRROLATE 1 MG TAB ONE ×2 (10:58→13:33)
[2017-04-15] MEDS ORDERED: carBAMazepine 200 MG TAB ONE ×2 (10:58→13:33)
[2017-04-15] MEDS ORDERED: MULTIVITAMIN 1 TAB PO ONE (10:58)
[2017-04-15] MEDS ORDERED: LACTOBACILLUS RHAMNOSUS GG 1 EACH CAP ONE (10:59)
[2017-04-15] MEDS ORDERED: VITAMIN D 400 IU TAB ONE (10:59)
[2017-04-15] MEDS ORDERED: CALCIUM CARBONATE 500 MG TAB ONE (10:59)
[2017-04-15] MEDS ORDERED: OXcarbazepine 150 MG TAB ONE (10:59)
[2017-04-15] MEDS ORDERED: levETIRAcetam 100 MG/ML ORASYR ONE (10:59)
[2017-04-15] MEDS ORDERED: PHENYTOIN 100 MG/4 ML UDC ONE (11:00)
[2017-04-15] MEDS: NACL 0.9% 1,000 ML IV SCH ×2 (11:03→23:40)
[2017-04-15] MEDS: PHENYTOIN 100 MG/4 ML UDC GT SCH ×2 (11:07→20:14)
[2017-04-15] MEDS: POTASSIUM CHLORIDE 20% 40 MEQ/15 ML UDC GT SCH (11:08)
[2017-04-15] MEDS: LACTULOSE 20 GM/30 ML UDC GT SCH (11:09)
[2017-04-15] MEDS: levETIRAcetam 100 MG/ML ORASYR GT SCH ×2 (11:10→20:14)
[2017-04-15] MEDS: VITAMIN D 400 IU TAB GT SCH ×2 (11:10→20:15)
[2017-04-15] MEDS: LACTOBACILLUS RHAMNOSUS GG 1 EACH CAP GT SCH (11:10)
[2017-04-15] MEDS: CALCIUM CARBONATE 500 MG TAB GT SCH ×2 (11:10→20:14)
[2017-04-15] MEDS: GLYCOPYRROLATE 1 MG TAB PO SCH ×3 (11:11→17:17)
[2017-04-15] MEDS: carBAMazepine 200 MG TAB GT SCH ×3 (11:11→17:17)
[2017-04-15] MEDS: MULTIVITAMIN/MINERALS 1 TAB GT SCH (11:11)
[2017-04-15] MEDS: OXcarbazepine 150 MG TAB PO SCH ×2 (11:12→20:15)
[2017-04-15] MEDS: MUPIROCIN 2% OINT 22 GM TUBE TP SCH (11:13)
[2017-04-15] MEDS: TIMOLOL OP 0.5% 5 ML BTL OP SCH ×2 (11:14→21:00)
[2017-04-15] MEDS: CHLORHEXADINE GLUC 2% CLOTH TP SCH (11:14)
--- NOTE | 2017-04-15 11:34 | NUR ---
PATIENT LYING DOWN IN BED. NO DISTRESS NOTED. CONDITION UNCHANGED. TRYING TO WEAN PATIENT OFF O2, AT 1L/MIN VIA NC O2 SAT IS 92%. ON ROOM AIR, O2 SAT AT 87-91%. SCHEDULED MEDICATIONS DUE GIVEN. PATIENT TOLERATED WELL. NO SEIZURES NOTED. SAFETY MEASURES IN PLACE, CALL LIGHT WITHIN REACH. WILL CONTINUE TO MONITOR.
[2017-04-15 12:00] VITALS: BP 124/72
--- NOTE | 2017-04-15 12:46 | NUR ---
04/15/17 RD FOLLOW UP COMPLETED. PLEASE REFER TO NUTRITION PROGRESS NOTE UNDER CARE ACTIVITY FOR ESTIMATED NUTRITION NEEDS. 1.CONTINUE WITH NPO STATUS RECOMMENDED BY SUBWAY REPAIR SUPERVISOR. 2.IF NPO STATUS IS EXPECTED SHORT TERM: BOOST PLUS 4X DAY VIA G-TUBE WILL PROVIDE 1440 KCALS AND 56 GM PRO PER DAY. THIS WILL MEET 98% ESTIMATED KCAL AND 100% ESTIMATED PRO NEEDS PER DAY. (BOOST PLUS IS APPROPRIATE FOR INTERIM SOLE SOURCE NUTRITION) 3.IF NPO STATUS IS EXTENDED ESTATE MANAGER, CONSIDER FIBERSOURCE HN @ 55ML/HOUR X 24 HOURS. THIS WILL PROVIDE 1584 KCALS AND 71 GM PRO PER DAY. TO MEET 100% OF ESTIMATED KCALS AND 100% ESTIMATED PRO NEEDS PER DAY. (APPROPRIATE FOR PENITENTIARY SOLE SOURCE NUTRITION) RD TO FOLLOW-UP 2-3DAYS, HIGH RISK POPEYE MARTINEZ RD Addendum: 04/15/17 at [address] SPOKE WITH [address] BLANCHARD, DISCUSSED RECOMMENDATIONS ABOVE, DR. BLANCHARD STATED SHE WILL PLACE ORDER FOR BOOST PLUS QID
[2017-04-15] MEDS: PIPER/TAZO 3.375GM/D5W PREMIX 50 ML IV SCH ×3 (13:35→23:30)
--- NOTE | 2017-04-15 13:40 | NUR ---
PATIENT LYING IN BED. NO DISTRESS NOTED. RESPIRATIONS EVEN, UNLABORED, ON O2 1L/MIN VIA NC WITH O2 SAT AT 92%. FLACC 0. SCHEDULED MEDICATIONS DUE GIVEN. PATIENT TOLERATED WELL. SAFETY MEASURES IN PLACE, CALL LIGHT WITHIN REACH. WILL CONTINUE TO MONITOR.
--- NOTE | 2017-04-15 15:44 | NUR ---
PATIENT LYING IN BED. RHONCHI HEARD THROUGHOUT LUNGS FROM PATIENT. O2 SAT AT 2L/MIN VIA NC ON WITH O2 SAT 88-90%. RESPIRATORY THERAPIST CALLED AND WILL EVALUATE PATIENT, WITH POSSIBLE NASOTRACHEAL SUCTIONING. PATIENT IS NOT PALE. WILL CONTINUE TO MONITOR.
[2017-04-15 16:00] VITALS: BP 140/80
--- NOTE | 2017-04-15 17:24 | NUR ---
PATIENT LYING DOWN IN BED SLEEPING, AROUSABLE BY VOICE. NO DISTRESS NOTED. FLACC 0. SCHEDULED MEDICATIONS DUE GIVEN. SAFETY MEASURES IN PLACE, CALL LIGHT WITHIN REACH. WILL CONTINUE TO MONITOR.
--- NOTE | 2017-04-15 19:20 | NUR ---
GAVE REPORT TO CLIENT COORDINATOR NURSE FOR CONTINUITY OF CARE. PATIENT IN STABLE CONDITION.
--- NOTE | 2017-04-15 19:20 | NUR ---
PATIENT IS CURRENTLY RESTING IN BED AT THIS TIME IVF INFUSING WELL IJ LINE CURRENTLY PATENT BLOODY DRAINAGE NOTED TO IJ DRESSING BUT NO ACTIVE BLEEDING NOTED.PATIENT IS SLEEPING CALMLY IN BED AND NO SEIZURE ACTIVITY NOTED SIDE RAILS PADDED FOR SAFETY PATIENT CONTINUES TO HAVE 02 AT 2L VIA NASAL CANNULA O2SAT AT 92% AT THIS TIME. PATIENT IS WEARING BILATERAL MITTENS TO HELP PREVENT PATIENT FROM PULLING ON MEDICAL LINES. PATIENT IS CURRENTLY CLEAN AND DRY WILL BE TURNED AND REPOSITIONED FOR COMFORT AND SCD'S ARE CURRENTLY ON FOR DVT PROPHALAXIS. CALL LIGHT WITHIN REACH FREQUENT VISUAL CHECKS WILL BE DONE.
[2017-04-15 20:00] VITALS: BP 128/92
[2017-04-15] MEDS: SIMVASTATIN 20 MG TAB GT SCH (20:14)
[2017-04-15] MEDS: HYDRAGUARD CREAM TP PRN (20:14)
[2017-04-15] MEDS: POLYETHYLENE GLYCOL 17 GM/PKT GT SCH (20:21)
--- NOTE | 2017-04-15 20:25 | NUR ---
I CALLED RESP THERAPIST JEANNE SO SHE CAN COME AND SUCTION THE PATIENT INFORMED THAT PATIENT O2SAT IS 87% AND HIGHEST 91% AND I ATTEMPTED TO SUCTION BUT HIS MOUTH IS CLEAR PATIENT MIGHT NEED DEEP SUCTIONING.RESP THERAPIST SAID SHE WILL COME SHORTLY. FOR NOW HOB REMAINS ELEVATED AND PULSE OX IS BEING MONITORED WITH VITAL SIGNS MACHINE.
--- NOTE | 2017-04-15 20:33 | NUR ---
[facility] REQUESTED TO EVALUATE PATIENT FOR SOB PATIENT PRESENTING WITH COARSE RHONCHI BILATERAL STURATION 89% ON SUPPLEMENTAL OXYGEN AT 2 LPM VIA NC RR 24 HR 04 NASOTRACHEAL PROCEDURE USING STERILE TECHNIQUE APPLIED [place] LUBRIN=ANT TO END OF 14FR SUCTION CATHETER INSERTED INTO LEFT NARES OBTAINED LARGE THICK YELLOW WITH BLOOD TINGE SECRETIONS HYPEROXYGENATION USED PRE AND POST SUCTION TOLERATED PROCEDURE WELL WITHOUT ADVERSE REACTIONS NOTED Addendum: 04/15/17 at 2045 by Andres Cintron RT "LUBRICANT"
--- NOTE | 2017-04-15 20:39 | NUR ---
RESP THERAPIST LINCOLN CAME AND SUCTIONED THE PATIENT.
--- NOTE | 2017-04-15 20:41 | NUR ---
RESP THERAPIST LINCOLN INFORMED ME THAT PATIENT IS NOW ON OXYGEN AT 3L VIA NASAL CANNULA.
--- NOTE | 2017-04-15 21:30 | NUR ---
Patient's Plan of Care was discussed and reviewed with CASTING ROOM HELPER: VALARIE HYATT
--- NOTE | 2017-04-15 23:40 | NUR ---
CVP LINE DRESSING CHANGE DONE BY CRISTO CHANG.
[2017-04-16] VITALS: BP 122/65
[2017-04-16] MEDS: NACL 0.9% 1,000 ML IV SCH ×2 (00:23→13:43)
--- NOTE | 2017-04-16 00:30 | NUR ---
RESP THERAPIST JEANNE WAS INFORMED THAT PATIENT HAS AN ORDER FOR SPUTUM C/S AND IT LOOKS LIKE IT HASN'T BEEN OBTAINED YET PATIENT WOULD HAVE TO BE PROBABLE INDUCED RESP AWARE.
--- NOTE | 2017-04-16 00:42 | NUR ---
PATIENT WAS TURNED AND REPOSITIONED FOR COMFORT BY ANGELINA GAGARWAL AND ANGELINA ROSEN.
--- NOTE | 2017-04-16 01:25 | NUR ---
PATIENT WAS GIVEN GOOD ORAL CARE AND ORAL BALANCE APPLIED PATIENT MOUTH WAS SUCTIONED.RESP THERAPIST JEANNE NOTIFIED THAT PATIENT WILL NEED TO BE SUCTIONED. 02SAT AFTER ORAL CARE 93%.WILL CONTINUE TO MONITOR.
--- NOTE | 2017-04-16 02:22 | NUR ---
PT IS SLEEPING COMFORTABLY NO SOB OR DISTRESS NOTED SPO2 93%. WILL ENDORSE SPUTUM FOR MORNING SHIFT PT IS ASLEEP.
--- NOTE | 2017-04-16 04:04 | NUR ---
PATIENT CURRENTLY RESTING IN BED CONTINUES TO BE TURNED BY STOCKROOM ASSOCIATE ALESSIA AND STOCKROOM ASSOCIATE LIBERTY. CONTINUES TO KEEP OXYGEN AT 3L IN PLACE O2SAT 93%.IVF INFUSING WELL WILL CONTINUE TO MONITOR.
--- NOTE | 2017-04-16 05:22 | NUR ---
PATIENT STABLE ORAL CARE GIVEN TO THE PATIENT AND PATIENT WAS ALSO SUCTIONED CONTINUES TO HAVE OXYGEN AT 3L VIA NASAL CANNULA 02SAT 93% NO SOB NOTED.PATIENT TURNED AND REPOSITIONED WITH PAPERHANGER APPRENTICE LIBERTY FOR COMFORT.IVF INFUSING WELL.CALL LIGHT WITHIN REACH.WILL CONTINUE TO MONITOR.
[2017-04-16] MEDS: PIPER/TAZO 3.375GM/D5W PREMIX 50 ML IV SCH ×4 (05:33→23:57)
[2017-04-16] MEDS: HYDRAGUARD CREAM TP PRN ×2 (05:51)
--- NOTE | 2017-04-16 05:51 | NUR ---
PATIENT WAS TURNED AND HIS CURRENTLY CLEAN AND DRY HYDRAGUARD APPLIED TO BUTTOCKS TO PROTECT SKIN WITH THE ASSISTANCE OF CRISTO SNOW. CRISTO MARRERO WAS ABLE TO OBTAIN BLOOD FROM THE PATIENT IJ CENTRAL LINE. PATIENT STABLE 02SAT 94% NO SOB OR RESP DISTRESS NOTED. WILL CONTINUE TO MONITOR.
[2017-04-16 07:06] LABS: LYMPHOCYTES # (AUTO) 1.2 K/uL (2.0-11.5); MONOCYTES # (AUTO) 0.5 K/uL (0.8-1.0); MONOCYTES % (AUTO) 6.6 % (1.7-9.3); RED BLOOD CELL COUNT(AUTO) 3.28 MIL/uL (4.20-6.10); WHITE BLOOD COUNT (AUTO) 7.3 K/uL (4.8-10.8)
[2017-04-16 07:07] LABS: BASOPHILS # (AUTO) 0.1 K/uL (0.00-0.22); BASOPHILS % (AUTO) 0.7 % (0.0-2.0); EOSINOPHILS % (AUTO) 0.4 % (0.0-4.0); HEMOGLOBIN 9.7 g/dL (12.0-18.0); LYMPHOCYTES % (AUTO) 16.1 % (20.5-51.1); MEAN CORPUSCULAR HEMOGLOBIN 30 pg (27-31); MEAN CORPUSCULAR HGB CONC 34 g/dL (33-37); MEAN CORPUSCULAR VOLUME 89 fL (80-94); NEUTROPHILS # (AUTO) 5.5 K/uL (1.8-7.7); NEUTROPHILS % (AUTO) 76.2 % (42.2-75.2); PLATELET COUNT (AUTO) 142 K/uL (140-450); RED CELL DISTRIBUTION WIDTH 13.7 % (11.6-13.7)
--- NOTE | 2017-04-16 07:19 | NUR ---
PATIENT STABLE REPORT ENDORSED TO CRISTO MOLINA. TUBE FEEDING AND ACCESSORIES AVAILABLE AT BEDSIDE SO PATIENT CAN BE STARTED ON GTUBE FEEDING TODAY FOR BREAKFAST.
--- NOTE | 2017-04-16 07:20 | NUR ---
RECEIVED REPORT FROM SOFA BACK UPHOLSTERER NURSE. PATIENT LYING IN BED, NO DISTRESS NOTED, FLACC 0. PATIENT IS AA, APHASIC, NON-VERBAL, SKIN COLOR APPROPRIATE TO ETHNICITY, WARM TO TOUCH. HAS LEFT UPPER ARM SKIN HEALING SKIN ABRASION, DRESSING INTACT AND DRY, REDNESS ON COCCYX AREA, HOWEVER, SKIN IS INTACT. HAS LEFT CENTRAL LINE, TRIPLE LUMEN, THAT IS INTACT, PATENT, AND INFUSING IVF PER ORDERS. MITTENS ON B/L HANDS DUE TO PULLING ON LINES. GTUBE SITE INTACT, PATENT, 100 ML RESIDUAL NOTED. GTUBE FEEDING STARTED PER MD ORDERS. WILL MONITOR RESIDUALS. REVIEWED PLAN OF CARE WITH PATIENT. UNABLE TO COMPREHEND, REINFORCEMENT NEEDED. SAFETY MEASURES IN PLACE, CALL LIGHT WITHIN REACH, SEIZURE PRECAUTIONS IN PLACE, FALL PREVENTIONS IN PLACE. WILL CONTINUE TO MONITOR.
[2017-04-16 07:21] LABS: ANION GAP 13.9 (8-16); CARBON DIOXIDE 23.8 mmol/L (21-32); CREATININE 1.2 mg/dL (0.7-1.3); POTASSIUM 3.7 mmol/L (3.5-5.1)
[2017-04-16 07:35] LABS: MAGNESIUM 1.7 mg/dL (1.8-2.4); PHOSPHORUS 4.3 mg/dL (2.5-4.9)
[2017-04-16] MEDS: ALBUTEROL SULFATE/IPRATROPIU 3 ML SOL IH SCH ×3 (07:41→19:53)
[2017-04-16 08:00] VITALS: BP 100/67
--- NOTE | 2017-04-16 09:22 | NUR ---
ASSISTED HAND LEATHER TRIMMER IN CLEANING AND REPOSITIONING PATIENT. WILL CONTINUE TO MONITOR.
--- NOTE | 2017-04-16 09:33 | NUR ---
SXN PT WITH MIN TO MOD AMT OFF WHITE RED SECS
--- NOTE | 2017-04-16 09:53 | NUR ---
MARINE FARMER note (bedside swallow re-evaluation completed) [id number]. Bedside swallow re-evaluation completed, please see report for details. MARINE FARMER provided pt with education regarding purpose of evaluation. Pt unable to benefit from education provided due to severe MR. No family/caregivers present. Recommend: 1) STRICT NPO (oral cares only) 2) continue alternative method(s) of nutrition/hydration/medication vs comfort measures, as appropriate 3) no further MARINE FARMER intervention indicated at this time. Physician may reorder if pt's respiratory status and CXR improves markedly, as appropriate. G-codes: [id number] [facility] N[facility] level 1. PVE for d/w RN (Migue) prior to and following bedside swallow re-evaluation completion.
[2017-04-16] MEDS: LACTULOSE 20 GM/30 ML UDC GT SCH (10:31)
[2017-04-16] MEDS: PHENYTOIN 100 MG/4 ML UDC GT SCH ×2 (10:32→20:48)
[2017-04-16] MEDS: POTASSIUM CHLORIDE 20% 40 MEQ/15 ML UDC GT SCH (10:32)
[2017-04-16] MEDS: MULTIVITAMIN/MINERALS 1 TAB GT SCH (10:33)
[2017-04-16] MEDS: LACTOBACILLUS RHAMNOSUS GG 1 EACH CAP GT SCH (10:33)
[2017-04-16] MEDS: GLYCOPYRROLATE 1 MG TAB PO SCH ×3 (10:33→18:29)
[2017-04-16] MEDS: carBAMazepine 200 MG TAB GT SCH ×3 (10:33→18:29)
[2017-04-16] MEDS: VITAMIN D 400 IU TAB GT SCH ×2 (10:33→20:45)
[2017-04-16] MEDS: CALCIUM CARBONATE 500 MG TAB GT SCH ×2 (10:33→20:46)
[2017-04-16] MEDS: NYSTATIN POW 100 MU/GM 15 GM BTL TP SCH ×2 (10:34→20:49)
[2017-04-16] MEDS: MUPIROCIN 2% OINT 22 GM TUBE TP SCH (10:34)
[2017-04-16] MEDS: TIMOLOL OP 0.5% 5 ML BTL OP SCH ×2 (10:34→20:49)
[2017-04-16] MEDS: CHLORHEXADINE GLUC 2% CLOTH TP SCH (10:35)
--- NOTE | 2017-04-16 10:49 | NUR ---
PATIENT LYING IN BED SLEEPING, AROUSABLE BY VOICE AND SHAKING. NO DISTRESS NOTED. FLACC 0. SCHEDULED MEDICATIONS DUE GIVEN. SAFETY MEASURES IN PLACE, CALL LIGHT WITHIN REACH. WILL CONTINUE TO MONITOR.
[2017-04-16] MEDS: OXcarbazepine 150 MG TAB PO SCH ×2 (11:35→20:46)
[2017-04-16] MEDS: levETIRAcetam 100 MG/ML ORASYR GT SCH ×2 (11:36→20:48)
--- NOTE | 2017-04-16 13:29 | NUR ---
PATIENT LYING DOWN IN BED. NO DISTRESS NOTED. O2 SAT 92-93% ON O2 3L/MIN VIA NC. SCHEDULED MEDICATIONS DUE GIVEN. SAFETY MEASURES IN PLACE, CALL LIGHT WITHIN REACH. WILL CONTINUE TO MONITOR.
--- NOTE | 2017-04-16 15:00 | NUR ---
REMOVED PT FROM O2 X 15 MINUTES PT DESAT < .88 PLACED PT BACK ON NC 3LPM O2 SAT > .92 PT NEEDS O2 RN AWARE
[2017-04-16 16:00] VITALS: BP 115/66
--- NOTE | 2017-04-16 17:48 | NUR ---
SPOKE WITH ALLISON FROM [facility]. I INFORMED HER THAT THE PATIENT MAY NEED O2 AND SHE STATED THEY HAVE O2 THERE. SHE THEN SAID THAT THIS PATIENT WOULD HAVE TO HAVE AN ORDER FOR THE 02 AND HAVE IT SET UP IF HE QUALIFIES. I CALLED THE FACILITY LATER AND SPOKE WITH VARINDER GALINDO. I INFORMED HER THAT THIS PATIENT HAS MRSA NARES AND IS ON DAY 3 OF DAY 5 TREATMENT. I ALSO TOLD HER HE MAY NEED OXYGEN. I ALSO INFORMED HER THAT HE FAILED THE SWALLOW EVAL AND THAT HE WAS ON FIBERSOURCE AT 55/HR VIA THE GT. Addendum: 04/16/17 at 1758 by Larissa Meade CM RACHEL STATED SHE THOUGHT THAT IF THE PATIENT HAS MRSA NARES, HE HAD TO BE IN ISOLATION.
[2017-04-16] MEDS ORDERED: MAG SULF 2000 MG/WATER PREMIX 50 ML IV SCH (18:00)
--- NOTE | 2017-04-16 18:38 | NUR ---
PATIENT LYING IN BED SLEEPING, AROUSABLE BY VOICE AND SHAKING. NO DISTRESS NOTED. FLACC 0. SCHEDULED MEDICATIONS DUE GIVEN. RESPIRATIONS EVEN, UNLABORED, ON O2 3L/MIN VIA NC. WILL CONTINUE TO MONITOR.
--- NOTE | 2017-04-16 19:20 | NUR ---
GAVE REPORT TO PANAMA HAT BLOCKER NURSE FOR CONTINUITY OF CARE. PATIENT IN STABLE CONDITION.
--- NOTE | 2017-04-16 19:21 | NUR ---
RECEIVED REPORT AT BEDSIDE FROM DAY SHIFT NURSE. PT APHASIC, ON 3L O2 VIA NC. PT HAS LEFT IJ TRIPLE LUMEN CATH. PT HAS GTUBE FEEDING FIBERSOURCE RUNNING AT 55ML/HR. SEE WOUND ASSESSMENT FOR SKIN PROBLEMS. SAFETY PRECAUTIONS IN PLACE. UPDATED BOARD. VITAL SIGNS WITHIN NORMAL LIMITS, PT DENIES PAIN. PT IN STABLE CONDITION, NO SIGNS OF DISTRESS NOTED. BED IN LOW POSITION, CALL LIGHT WITHIN REACH. WILL CONTINUE TO MONITOR.
[2017-04-16] MEDS: POLYETHYLENE GLYCOL 17 GM/PKT GT SCH (20:47)
[2017-04-16] MEDS: SIMVASTATIN 20 MG TAB GT SCH (20:47)
[2017-04-17] VITALS: BP 116/74
--- NOTE | 2017-04-17 | NUR ---
VITAL SIGNS WITHIN NORMAL LIMITS, PT DENIES PAIN. PT IN STABLE CONDITION, NO SIGNS OF DISTRESS NOTED. BED IN LOW POSITION, CALL LIGHT WITHIN REACH. WILL CONTINUE TO MONITOR.
[2017-04-17] MEDS: NACL 0.9% 1,000 ML IV SCH ×2 (03:03→16:23)
[2017-04-17] MEDS: PIPER/TAZO 3.375GM/D5W PREMIX 50 ML IV SCH ×4 (06:09→23:36)
--- NOTE | 2017-04-17 07:17 | NUR ---
ENDORSED PT IN STABLE CONDITION TO DAY SHIFT NURSE FOR CONTINUITY OF CARE.
--- NOTE | 2017-04-17 07:17 | NUR ---
ASSUMED CONTINUITY OF CARE. NO SIGNS AND SYMPTOMS OF ACUTE DISTRESS NOTED. INITIAL ASSESSMENT DONE. HOB ELEVATED AND KEEP COMFORTABLE. SEIZURE AND FALL PRECAUTION APPLIED. CALL LIGHT WITHIN REACH.
--- NOTE | 2017-04-17 07:28 | NUR ---
Patient's Plan of Care was discussed and reviewed with MARINE ARCHITECT: VALENTINA.
[2017-04-17 07:41] LABS: BASOPHILS # (AUTO) 0.1 K/uL (0.00-0.22); BASOPHILS % (AUTO) 0.7 % (0.0-2.0); EOSINOPHILS % (AUTO) 0.4 % (0.0-4.0); HEMATOCRIT 26.4 % (36-52); HEMOGLOBIN 8.7 g/dL (12.0-18.0); LYMPHOCYTES # (AUTO) 1.4 K/uL (2.0-11.5); LYMPHOCYTES % (AUTO) 16.2 % (20.5-51.1); MEAN CORPUSCULAR HEMOGLOBIN 29 pg (27-31); MEAN CORPUSCULAR HGB CONC 33 g/dL (33-37); MEAN CORPUSCULAR VOLUME 88 fL (80-94); MONOCYTES # (AUTO) 0.9 K/uL (0.8-1.0); MONOCYTES % (AUTO) 10.7 % (1.7-9.3); NEUTROPHILS # (AUTO) 6.5 K/uL (1.8-7.7); PLATELET COUNT (AUTO) 121 K/uL (140-450); RED BLOOD CELL COUNT(AUTO) 3.01 MIL/uL (4.20-6.10); RED CELL DISTRIBUTION WIDTH 13.8 % (11.6-13.7); WHITE BLOOD COUNT (AUTO) 8.9 K/uL (4.8-10.8)
[2017-04-17 08:00] VITALS: BP 100/60
--- NOTE | 2017-04-17 08:10 | NUR ---
RT -BILL CAME FOR PT. BREATHING TREATMENT.
[2017-04-17] MEDS: ALBUTEROL SULFATE/IPRATROPIU 3 ML SOL IH SCH ×3 (08:15→18:49)
[2017-04-17] MEDS: PHENYTOIN 100 MG/4 ML UDC GT SCH ×2 (09:12→21:16)
[2017-04-17] MEDS: POTASSIUM CHLORIDE 20% 40 MEQ/15 ML UDC GT SCH (09:13)
[2017-04-17] MEDS: levETIRAcetam 100 MG/ML ORASYR GT SCH ×2 (09:13→21:16)
[2017-04-17] MEDS: NYSTATIN POW 100 MU/GM 15 GM BTL TP SCH ×2 (09:15→21:17)
[2017-04-17] MEDS: TIMOLOL OP 0.5% 5 ML BTL OP SCH ×2 (09:15→21:17)
[2017-04-17] MEDS: LACTULOSE 20 GM/30 ML UDC GT SCH (09:16)
[2017-04-17] MEDS: MUPIROCIN 2% OINT 22 GM TUBE TP SCH (09:16)
[2017-04-17] MEDS: LACTOBACILLUS RHAMNOSUS GG 1 EACH CAP GT SCH (09:16)
[2017-04-17] MEDS: GLYCOPYRROLATE 1 MG TAB PO SCH ×3 (09:16→16:43)
[2017-04-17] MEDS: VITAMIN D 400 IU TAB GT SCH ×2 (09:17→21:14)
[2017-04-17] MEDS: carBAMazepine 200 MG TAB GT SCH ×3 (09:17→16:43)
[2017-04-17] MEDS: MULTIVITAMIN/MINERALS 1 TAB GT SCH (09:17)
[2017-04-17] MEDS: CALCIUM CARBONATE 500 MG TAB GT SCH ×2 (09:17→21:14)
[2017-04-17] MEDS: OXcarbazepine 150 MG TAB PO SCH ×2 (09:26→21:17)
[2017-04-17 09:43] LABS: ANION GAP 15.1 (8-16); CARBON DIOXIDE 23.9 mmol/L (21-32); CREATININE 1.5 mg/dL (0.7-1.3)
--- NOTE | 2017-04-17 11:19 | NUR ---
Social Service Note: I called [email or web address] and spoke with Maira. Per Maira, they serve [facility] and accept Medicare for home O2 referrals, requested referral to be fax to . I faxed referral. Addendum: 04/17/17 at 1127 by Lien Hernandez SS I called and spoke with Dolores from [facility] , she stated their facility is not a board and care, it's an intermediate care facility, I informed her patient needs home O2. She stated their facility can accommodate him with home O2, I verified facility's address listed on patient's face sheet.
[2017-04-17] MEDS: CHLORHEXADINE GLUC 2% CLOTH TP SCH (11:58)
[2017-04-17 12:00] VITALS: BP 110/59
--- NOTE | 2017-04-17 12:00 | NUR ---
VITALS SIGNS STABLE. NO DISCOMFORT NOTICED. WILL MONITOR.
[2017-04-17 12:30] LABS: MAGNESIUM 2.8 mg/dL (1.8-2.4); PHOSPHORUS 4.3 mg/dL (2.5-4.9)
[2017-04-17 16:00] VITALS: BP 121/81
--- NOTE | 2017-04-17 16:30 | NUR ---
RESTLESS AND 02 SAT WENT DOWN TO 80% ON O2 AT 4L/MIN VIA NC. HOB ELEVATED AND KEEP COMFORTABLE ON BED. INFORMED CHARGE NURSE MALIKA TOVAR. ALSO INFORMED DR. VALENTIN ABOUT PT. RESTLESSNESS AND O2 SAT THAT WENT DOWN TO 80% ON O2 AT 4L/MIN VIA NC.
--- NOTE | 2017-04-17 17:05 | NUR ---
DR. VALENTIN AND DR. GELLER CAME AND ASSESSED PT.. PT. STILL O2 SAT WAS GOING UP AND DOWN, AND THE LOWEST WAS 81% ON O2 AT 4L/MIN VIA NC. KEEP COMFORTABLE ON BED AND CONTINUE MONITORING. TEMP 99.2, BP 129/97, HR 96, RESP 22, 02 SAT 90%. NO DISCOMFORT NOTICED. PER DR. VALENTIN, HE WILL ORDER CXR.
--- NOTE | 2017-04-17 17:15 | NUR ---
RT -BILL CAME FOR PT. ABG. CONTINUE MONITORING.
--- NOTE | 2017-04-17 17:25 | NUR ---
Social Service Note: [facility] and concentrator to patient's home, I informed patient's nurse Silvestre of this.
--- NOTE | 2017-04-17 17:30 | NUR ---
RADIOLOGY STAFF CAME FOR CXR. TOLERATED WELL.
--- NOTE | 2017-04-17 19:15 | NUR ---
BEDSIDE REPORT GIVEN TO JASPER TOVAR. IVF INFUSING WELL. IN STABLE CONDITION.
--- NOTE | 2017-04-17 19:16 | NUR ---
RECEIVED REPORT AT BEDSIDE FROM DAY SHIFT NURSE. PT APHASIC, ON 4L O2 VIA NC. PT HAS LEFT IJ TRIPLE LUMEN CATH. PT HAS GTUBE FEEDING FIBERSOURCE RUNNING AT 55ML/HR. SEE WOUND ASSESSMENT FOR SKIN PROBLEMS. SAFETY PRECAUTIONS IN PLACE. UPDATED BOARD. VITAL SIGNS WITHIN NORMAL LIMITS, PT DENIES PAIN. PT IN STABLE CONDITION, NO SIGNS OF DISTRESS NOTED. BED IN LOW POSITION, CALL LIGHT WITHIN REACH. WILL CONTINUE TO MONITOR.
--- NOTE | 2017-04-17 20:40 | NUR ---
HOME AND PORTABLE OXYGEN DELIVERED.
--- NOTE | 2017-04-17 21:00 | NUR ---
HOME OXYGEN WAS DELIVERED AT 20:40, [employer] ARCHITECT SHOWED INSTRUCTIONS ON HOW TO USE PORTABLE OXYGEN TANK, AND THEN BROUGHT THE OXYGEN CONCENTRATOR AND DEMONSTRATED USE OF IT. FOR THE PORTABLE OXYGEN TANK: INSIDE A LITTLE SQUARE ON THE OXYGEN REGULATOR THERE ARE TWO LITTLE PRONGS, YOU LINE UP THE PRONGS WITH THE TWO HOLES ON THE SQUARE PART OF THE OXYGEN TANK AND TIGHTEN THE REGULATOR AT THAT POINT. YOU CAN THEN CONNECT THE TUBING TO THE SILVER "ANTHONY TREE" AND USE THE GREEN CORDOVA TO SET ON THE TOP OF THE OXYGEN AND TURN TO OPEN, ON THE REGULATOR YOU CAN ADJUST THE LITERS NEEDED. WHEN TURNING OFF, TURN CORDOVA TO CLOSE AND OPEN THE REGULATOR TO LET ALL THE OXYGEN IN THERE OUT AND THEN SET BACK TO 0. FOR THE HOME OXYGEN CONCENTRATOR: PLUG IN TO WALL OUTLET, TURN ON BY PRESSING BLACK BUTTON, SET THE NUMBER OF LITERS NEEDED BY USING THE KNOB AT THE FRONT. CONNECT TUBING, AND IF NEEDED CONNECT EXTENSION AND EXTRA TUBING. SIGNED ALL PAPERWORK, AND KEPT COPIES, OXYGEN [employer] ARCHITECT JUST LEFT NOW. COPIES AND HANDBOOK WILL BE IN PATIENT'S CHART. INSTRUCTIONS GIVEN THAT PORTABLE OXYGEN LASTS ABOUT 4HRS, SO IF MORE IS NEEDED LET COMPANY KNOW AND IT WILL BE DELIVERED.
[2017-04-17] MEDS: POLYETHYLENE GLYCOL 17 GM/PKT GT SCH (21:16)
[2017-04-17] MEDS: SIMVASTATIN 20 MG TAB GT SCH (21:17)
--- NOTE | 2017-04-17 21:20 | NUR ---
ADMINISTERED SCHEDULED MEDICATIONS PER ORDER, PT TOLERATED WELL. PT IN STABLE CONDITION, NO SIGNS OF DISTRESS NOTED. BED IN LOW POSITION, CALL LIGHT WITHIN REACH. WILL CONTINUE TO MONITOR.
--- NOTE | 2017-04-17 23:40 | NUR ---
INFUSING SCHEDULED ANTIBIOTIC, PT TOLERATING WELL. VITAL SIGNS WITHIN NORMAL LIMITS, FLACC 0. PT IN STABLE CONDITION, NO SIGNS OF DISTRESS NOTED. BED IN LOW POSITION, CALL LIGHT WITHIN REACH. WILL CONTINUE TO MONITOR.
[2017-04-17 23:55] VITALS: BP 96/63
--- NOTE | 2017-04-18 02:35 | NUR ---
CALL TO BEDSIDE PATIENT RESTLESS, BS-RHONCHI SAO2 93% RR 22, JASPER AND I SUCTIONED AND SECRETIONS ARE BLOODY , GIVEN HHN TX AND PLACED ON OXIMIZER 4LPM, DR. HALL WILL ALSO ORDER LASIX, PATIENT HAS HISTORY OF CHF
--- NOTE | 2017-04-18 03:15 | NUR ---
AT PT BEDSIDE SINCE 02:30, PT RESTLESS AND SCREAMING, SATURATION 88%. SUCTIONED MOUTH AND BRIGHT RED BLOOD CAME OUT. RT NOW AT BEDSIDE, RT SUCTIONED PT AND GAVE RESPIRATORY TREATMENT, PT STILL RESTLESS. RHONCHI HEARD THROUGHOUT LUNGS, BUT MORE AT BASES. CALLED DR HALL AND DR HALL WENT TO SEE PT. SHE ORDERED ORAL CARE AND ONE TIME LASIX ORDER. WILL CONTINUE TO MONITOR PT AND WILL ADMINISTER LASIX. BLOOD PRESSURE IS STABLE AT THIS TIME.
[2017-04-18] MEDS ORDERED: FUROSEMIDE 20 MG/2 ML VIAL IVP SCH ×4 (03:25→22:10)
--- NOTE | 2017-04-18 03:45 | NUR ---
PERFORMED ORAL CARE AND ADMINISTERED LASIX, PT TOLERATED WELL. PT IN STABLE CONDITION, NO SIGNS OF DISTRESS NOTED. BED IN LOW POSITION, CALL LIGHT WITHIN REACH. WILL CONTINUE TO MONITOR.
--- NOTE | 2017-04-18 05:15 | NUR ---
BLOOD PRESSURE STILL STABLE. PT IN STABLE CONDITION, NO SIGNS OF DISTRESS NOTED. BED IN LOW POSITION, CALL LIGHT WITHIN REACH. WILL CONTINUE TO MONITOR.
[2017-04-18] MEDS: NACL 0.9% 1,000 ML IV SCH (05:43)
[2017-04-18] MEDS: PIPER/TAZO 3.375GM/D5W PREMIX 50 ML IV SCH ×3 (06:40→17:48)
[2017-04-18 07:09] LABS: BASOPHILS # (AUTO) 0.2 K/uL (0.00-0.22); BASOPHILS % (AUTO) 1.6 % (0.0-2.0); EOSINOPHILS # (AUTO) 0.1 K/uL (0-0.4); EOSINOPHILS % (AUTO) 0.5 % (0.0-4.0); HEMATOCRIT 25.9 % (36-52); HEMOGLOBIN 8.9 g/dL (12.0-18.0); LYMPHOCYTES # (AUTO) 1.5 K/uL (2.0-11.5); LYMPHOCYTES % (AUTO) 14.8 % (20.5-51.1); MEAN CORPUSCULAR HEMOGLOBIN 30 pg (27-31); MEAN CORPUSCULAR HGB CONC 34 g/dL (33-37); MEAN CORPUSCULAR VOLUME 87 fL (80-94); MONOCYTES # (AUTO) 0.8 K/uL (0.8-1.0); MONOCYTES % (AUTO) 8.4 % (1.7-9.3); NEUTROPHILS # (AUTO) 7.5 K/uL (1.8-7.7); NEUTROPHILS % (AUTO) 74.7 % (42.2-75.2); PLATELET COUNT (AUTO) 120 K/uL (140-450); RED BLOOD CELL COUNT(AUTO) 2.97 MIL/uL (4.20-6.10); RED CELL DISTRIBUTION WIDTH 13.6 % (11.6-13.7); WHITE BLOOD COUNT (AUTO) 10.1 K/uL (4.8-10.8)
--- NOTE | 2017-04-18 07:48 | NUR ---
ENDORSED PT IN STABLE CONDITION TO DAY SHIFT RN FOR CONTINUITY OF CARE.
--- NOTE | 2017-04-18 07:49 | NUR ---
RECEIVED REPORT FROM LAYER UP NURSE. PATIENT LYING IN BED, NO DISTRESS NOTED, FLACC 0. PATIENT IS AA, APHASIC, NON-VERBAL, SKIN COLOR APPROPRIATE TO ETHNICITY, WARM TO TOUCH, RESTLESS MOOD AT THIS TIME. RESPIRATIONS EVEN, UNLABORED, ON O2 4L/MIN VIA OXIMIZER WITH O2 SAT AT 93%. HAS LEFT UPPER ARM SKIN HEALING SKIN ABRASION, DRESSING INTACT AND DRY, HAS REDNESS ON PERINEAL AREA, HOWEVER, SKIN IS INTACT. HAS LEFT CENTRAL LINE, TRIPLE LUMEN, THAT IS INTACT, PATENT, AND INFUSING IVF PER ORDERS. MITTENS ON B/L HANDS DUE TO PULLING ON LINES. GTUBE SITE INTACT, PATENT, 15 ML RESIDUAL NOTED. GTUBE FEEDING INFUSING PER MD ORDERS. WILL MONITOR RESIDUALS. REVIEWED PLAN OF CARE WITH PATIENT. UNABLE TO COMPREHEND, REINFORCEMENT NEEDED. SAFETY MEASURES IN PLACE, CALL LIGHT WITHIN REACH, SEIZURE PRECAUTIONS IN PLACE, FALL PREVENTIONS IN PLACE. WILL CONTINUE TO MONITOR.
[2017-04-18 07:53] LABS: ANION GAP 12.5 (8-16); CARBON DIOXIDE 27.9 mmol/L (21-32); CREATININE 1.3 mg/dL (0.7-1.3); POTASSIUM 3.4 mmol/L (3.5-5.1)
[2017-04-18 07:58] LABS: MAGNESIUM 2.1 mg/dL (1.8-2.4); PHOSPHORUS 3.1 mg/dL (2.5-4.9)
[2017-04-18 08:00] VITALS: BP 120/63
[2017-04-18] MEDS: ALBUTEROL SULFATE/IPRATROPIU 3 ML SOL IH SCH ×3 (08:00→18:54)
--- NOTE | 2017-04-18 08:00 | NUR ---
PATIENT WITH MOVEMENT AND IRRITABLE WITH HAND/MITTENS TO FACIAL AREA SUPPLEMENTAL OXYGEN AT 4LPM VIA OXYMIZER OFF FROM NASAL AREA POST HHN THERAPY PLACED BACK ON SUPPLEMENTAL OXYGEN AT 4 LPM VIA OXYMIZER
[2017-04-18] MEDS: TIMOLOL OP 0.5% 5 ML BTL OP SCH ×2 (09:45→20:58)
[2017-04-18] MEDS: MUPIROCIN 2% OINT 22 GM TUBE TP SCH (09:46)
[2017-04-18] MEDS: POTASSIUM CHLORIDE 20% 40 MEQ/15 ML UDC GT SCH (09:47)
[2017-04-18] MEDS: LACTULOSE 20 GM/30 ML UDC GT SCH (09:48)
[2017-04-18] MEDS: levETIRAcetam 100 MG/ML ORASYR GT SCH ×2 (09:49→22:17)
[2017-04-18] MEDS: PHENYTOIN 100 MG/4 ML UDC GT SCH ×2 (09:49→20:57)
[2017-04-18] MEDS: CALCIUM CARBONATE 500 MG TAB GT SCH ×2 (09:50→20:58)
[2017-04-18] MEDS: LACTOBACILLUS RHAMNOSUS GG 1 EACH CAP GT SCH (09:51)
[2017-04-18] MEDS: GLYCOPYRROLATE 1 MG TAB PO SCH ×3 (09:51→17:48)
[2017-04-18] MEDS: VITAMIN D 400 IU TAB GT SCH ×2 (09:51→20:58)
[2017-04-18] MEDS: carBAMazepine 200 MG TAB GT SCH ×3 (09:51→17:48)
[2017-04-18] MEDS: MULTIVITAMIN/MINERALS 1 TAB GT SCH (09:51)
[2017-04-18] MEDS: OXcarbazepine 150 MG TAB PO SCH ×2 (09:52→20:57)
[2017-04-18] MEDS: NYSTATIN POW 100 MU/GM 15 GM BTL TP SCH ×2 (09:53→21:04)
--- NOTE | 2017-04-18 10:14 | NUR ---
PATIENT LYING IN BED IN RESTLESS MOOD. NO DISTRESS NOTED. SCHEDULED MEDICATIONS DUE GIVEN. PATIENT CALMED DOWN AFTER MEDICATION ADMINISTRATION. O2 ON 4L/MIN VIA OXIMIZER. IVF RUNNING PER ORDERS, GTUBE FEEDING RUNNING PER ORDERS. SAFETY MEASURES IN PLACE, CALL LIGHT WITHIN REACH. WILL CONTINUE TO MONITOR.
--- NOTE | 2017-04-18 11:48 | NUR ---
PATIENT LYING DOWN IN BED SLEEPING, AROUSABLE BY VOICE. NO DISTRESS NOTED. FLACC 0. RESPIRATIONS EVEN, UNLABORED, ON O2 4L/MIN VIA OXIMIZER WITH O2 SAT AT 94%. SAFETY MEASURES IN PLACE, CALL LIGHT WITHIN REACH. WILL CONTINUE TO MONITOR.
[2017-04-18] MEDS: CHLORHEXADINE GLUC 2% CLOTH TP SCH (12:41)
--- NOTE | 2017-04-18 13:00 | NUR ---
PATIENT LYING IN BED. IN RESTLESS MOOD. IV SITE INTACT, PATENT AND INFUSING IVF PER ORDERS. RESPIRATIONS EVEN, UNLABORED, ON O2 4L/MIN VIA MAXIMIZER WITH O2 SAT AT 95%. SCHEDULED MEDICATIONS DUE GIVEN. ORAL CARE PROVIDED. PATIENT TOLERATED WELL. SAFETY MEASURES IN PLACE, CALL LIGHT WITHIN REACH, SEIZURE PRECAUTIONS IN PLACE. WILL CONTINUE TO MONITOR.
[2017-04-18] MEDS ORDERED: POTASSIUM CHLORIDE 20% 40 MEQ/15 ML UDC GT SCH (14:40)
--- NOTE | 2017-04-18 15:04 | NUR ---
04/18/17 RD FOLLOW UP COMPLETED PLEASE REFER TO NUTRITION PROGRESS NOTE UNDER CARE ACTIVITY FOR ESTIMATED NUTRITION NEEDS. RD RECOMMENDATIONS: 1.CONTINUE WITH CURRENT TF FIBERSOURCE HN@55MLS/HR; SUFFICIENT TO MEET 100% ESTIMATED ENERGY & PROTEIN NEEDS. 2. RD TO FOLLOW-UP 2-3DAYS, HIGH RISK PRUDENCE LARES MBA, RD
[2017-04-18] MEDS: ACETAMINOPHEN 325 MG TAB GT PRN ×2 (15:26→21:17)
--- NOTE | 2017-04-18 15:27 | NUR ---
PATIENT LYING IN BED. RESTLESS MOOD. V/S TAKEN, TEMPERATURE IS 102.1. TYLENOL GIVEN PER ORDERS FOR FEVER. WILL CONTINUE TO MONITOR. OTHER SCHEDULED MEDICATION GIVEN. SAFETY MEASURES IN PLACE, CALL LIGHT WITHIN REACH. WILL CONTINUE TO MONITOR.
[2017-04-18 16:00] VITALS: BP 122/69
[2017-04-18 17:00] VITALS: BP 116/65
--- NOTE | 2017-04-18 17:53 | NUR ---
PATIENT LYING IN BED, FEVER HAS GONE DOWN. TEMP IS 99.1. CONTINUES TO BE RESTLESS. O2 SAT AT 93% WITH 4L/MIN VIA OXIMIZER. SCHEDULED MEDICATIONS DUE GIVEN. SAFETY MEASURES IN PLACE, CALL LIGHT WITHIN REACH. WILL CONTINUE TO MONITOR.
--- NOTE | 2017-04-18 19:15 | NUR ---
GAVE REPORT TO PHOTOGRAPHIC ARTIST NURSE FOR CONTINUITY OF CARE. PATIENT IN STABLE CONDITION.
--- NOTE | 2017-04-18 19:49 | NUR ---
PATIENT IS CURRENTLY LAYING IN BED EYES CLOSED HAS OXYMIZER AT 2L ENDORSED BY RESP THERAPIST GARIMA EARLIER AT BEDSIDE. REPS THERAPIST SUCTIONED THE PATIENT WELL EARLIER AND PATIENT 02SAT IS CURRENTLY FLUNCTUATES 94- 97%.VITALS SIGNS TAKEN AND TEMPORAL TEMP IS 100.6 AND I RECHECKED WITH ANOTHER MACHINE AND CHECKED AXILLARY AND TEMP IS 99.5 COOLING MEASURES GIVEN WITH THE ASSISTANCE OF ANGELINA BLANK AND WILL BE MEDICATED INDICATED.PATIENT WILL CONTINUE TO BE TURNED AND REPOSITIONED AND OFFLOADING WILL BE DONE ALSO.IVF INFUSING WELL AND CONTINUES TO RECEIVED FIBERSOURCE AT 55ML AND TOLERATING FEEDING WELL. WILL CONTINUE TO MONITOR.
[2017-04-18 20:00] VITALS: BP 108/45
--- NOTE | 2017-04-18 20:00 | NUR ---
Patient's Plan of Care was discussed and reviewed with WAX BLEACHER: VALARIE HYATT.
[2017-04-18] MEDS: SIMVASTATIN 20 MG TAB GT SCH (20:58)
[2017-04-18] MEDS: POLYETHYLENE GLYCOL 17 GM/PKT GT SCH (21:00)
--- NOTE | 2017-04-18 21:20 | NUR ---
I CALLED MD HALL AND I INFORMED HER THAT PATIENT HAD FEVER TODAY IN THE AFTERNOON AND ALSO FOR ME TONIGHT AND I JUST ADMINISTERED TYLENOL AND I ALSO NOTIFIED HER THAT PATIENT O2SAT IS 89-91% WITH THE OXYMIZER AT 2L AND PATIENT IS VERY RESTLESS. I INFORMED MD HALL THAT RESP THERAPIST CAME AND SUCTIONED THE PATIENT EARLIER AT THE BEGINNING OF THE SHIFT BUT PATIENT STILL SOUNDS LIKE HE IS CONGESTED AND HAS SECRETIONS AND PATIENT MOUTH HAS NO VISIBLE SECRETIONS TO SUCTION. MD DAMON SAID SHE WILL PLACE ORDERS FOR THE PATIENT.
--- NOTE | 2017-04-18 21:26 | NUR ---
PATIENT WAS ABLE TO CALM DOWN AND SETTLE DOWN AND OXYGEN WAS SECURED AND TAPED WITH PAPER TAPE TO HIS CHEEKS CURRENT 02SAT IS BACK UP TO 96-97%. RESP HANNI CAME BECAUSE EARLIER BECAUSE WHEN PATIENT WAS RESTLESS HIS O2SAT WAS 89-91% BUT THE PATIENT IS CALM NOW AFTER ICE PACKS WERE REMOVED FROM UNDER HIS ARMS WHICH WERE PLACED FOR COOLING MEASURES AND THE PATIENT'S OXYGEN SATURATION IS GOOD O2SAT 97% AND PATIENT IS CURRENTLY CALM.
--- NOTE | 2017-04-18 21:57 | NUR ---
PATIENT IS HAVING A CHEST XRAY DONE AT THIS TIME. AND PHARMACY BROUGHT THE KEPPRA MEDICATION FOR THE PATIENT.
--- NOTE | 2017-04-18 22:34 | NUR ---
PATIENT WAS PULLED UP IN BED TURNED AND REPOSITIONED GOOD PERICARE GIVEN I WAS ASSISTED BY CRISTO GARZA. PATIENT VITALS WERE CHECKED PRIOR TO CRISTO GARZA ADMINISTERING LASIX B/P 125/55 HR 110 PATIENT CONTINUES TO HAVE OXYMYZER AND O2SAT IS CURRENTLY FLUNCTUATES BETWEEN 92-93%.TEMPERATURE WAS CHECKED ITS CURRENTLY 99.3 AND PATIENT CONTINUES TO HAVE COOLING MEASURES. WILL CONTINUE TO MONITOR THE PATIENT.
--- NOTE | 2017-04-18 23:26 | NUR ---
PATIENT RESTLESS BUT O2SAT IS 93% AT THIS TIME.CONTINUES TO HAVE BILATERAL MITTENS TO HELP HIM FROM PULLING OUT OXYGEN AND MEDICAL LINES.
[2017-04-19] VITALS: BP 120/56
--- NOTE | 2017-04-19 | NUR ---
I MADE ROUNDS AND HEARD THE O2SAT MACHINE BEEPING AND ITS READING 85% OXYGEN SATURATION. PATIENT CONTINUES TO BE RESTLESS SO I PULLED UP THE PATIENT IN BED WITH THE ASSISTANCE OF RN GREG PATIENT CONTINUES TO WEAR HIS OXYMIZER OXYGEN AT 2L AND ITS IN PLACE. PATIENT IS A BIT RESTLESS. O2SAT CONTINUES TO DROP SLOWLY 82% I CALLED RESP THERAPIST GARIMA TO COME AND SEE THE PATIENT AND I ALSO NOTIFIED MD HALL SHE SAID SHE WILL COME TO SEE THE PATIENT.I WENT AND I GOT ANOTHER VITAL SIGN MACHINE WITH A DIFFERENT PULSE OXIMETER AND ATTACHED IT TO HIS TOE AND I GOT A LOW BUT BETTER READING 89% SO I CHANGED THE SENSOR TO HIS LT HAND JUST IN CASE ITS NOT WORKING APPROPRIATELY. CHARGE NURSE ANDRAE CAME TO SEE THE PATIENT WELL.
[2017-04-19] MEDS: PIPER/TAZO 3.375GM/D5W PREMIX 50 ML IV SCH ×5 (00:03→23:35)
--- NOTE | 2017-04-19 00:05 | NUR ---
MD HALL CAME TO SEE THE PATIENT AND RESP THERAPIST GARIMA IS ALSO HERE ASSESSING THE PATIENT. SAID SHE WILL ENTER NEW ORDERS FOR THE PATIENT.
--- NOTE | 2017-04-19 00:07 | NUR ---
ABD CURRENTLY BEING DRAWN BY RESP THERAPIST GARIMA AT THIS TIME. MIDNIGHT VITAL SIGNS CHECKED B/P IS 120/56 HR 96 TEMP IS 99.0 PATIENT IS RESTLESS PATIENT HAS A NEW 02SAT SENSOR TO HIS FINGER O2SAT READING IS CURRENTLY 92-96% FLUNCTUATING.
[2017-04-19] MEDS ORDERED: FUROSEMIDE 20 MG/2 ML VIAL IVP SCH (00:10)
--- NOTE | 2017-04-19 02:05 | NUR ---
PATIENT IS MAKING NOISES AND CAN BE HEARD ALL THE WAY TO THE NURSES STATION RN ANDRAE WENT TO CHECK ON THE PATIENT BECAUSE I'M CURRENTLY 1:1 SITTER FOR ONE OF MY OTHER PATIENT'S AND THEN CHARGE NURSE SAID TO CALL RESP THERAPIST HOUSEHOLD APPLIANCE REPAIRER JACKSON CALLED RT. PATIENT WAS ALSO SEEN BY RESEARCH ENVIRONMENTAL SCIENTIST AND HE TOLD ME THAT THE PATIENT IS RESTLESS I PUT A CALL FOR MD RESIDENT HALL AND NOTIFY HER OF PATIENT CONDITION.SHE SAID SHE WILL COME TO SEE THE PATIENT.
[2017-04-19] MEDS ORDERED: KETOROLAC 15 MG/ML VIAL IM ONE (02:10)
--- NOTE | 2017-04-19 02:17 | NUR ---
I CALLED RESIDENT AND SUGGESTED IF SHE WOULD LIKE TO PLACE THE PATIENT ON TELEMONITORING TO MONITOR THE PATIENT BETTER SHE SAID,"YES." PATIENT WILL BE PLACED ON TELEMONITOR SHIPPING SUPPORT NURSE ANDRAE IS APPLYING THE TELEMONITOR ON THE PATIENT.WILL CONTINUE TO OBSERVE.PATIENT HAS BEEN PULLED UP IN BED CLEANED AND TURNED BY ANGELINA BLANK AND ANGELINA ANGLIN.
--- NOTE | 2017-04-19 02:17 | NUR ---
MD RESIDENT AWARE THAT PATIENT IS VERY RESTLESS AND HAD DISLODGED HIS OXYGEN REPORTED TO ME BY RENTAL COUNTER CLERK KRYSTLE DUE TO PATIENT'S RESTLESSNESS.MD RESIDENT SAID SHE WILL SEE THE PATIENT THEN SHE WILL DECIDE AND WILL PUT IN ORDERS FOR THE PATIENT.
[2017-04-19] MEDS ORDERED: diphenhydrAMINE 50 MG/ML VIAL IVP SCH (03:20)
--- NOTE | 2017-04-19 03:25 | NUR ---
I INFORMED MD RESIDENT HALL THAT PATIENT CONTINUES TO BE RESTLESS AND MOANING SHE WILL PLACE ORDERS WILL FOLLOW UP.
--- NOTE | 2017-04-19 04:30 | NUR ---
PATIENT IS CALM AND SLEEPING.IVF INFUSING WELL GTUBE FEEDING INFUSING WELL.PATIENT WAS CLEANED GOOD PERICARE GIVEN TURNED AND REPOSITIONED WITH THE ASSISTANCE OF ANGELINA ROSEN.GOOD MOUTH CARE GIVEN WELL. PATIENT HASN'T BEEN SUCTIONED TO AVOID HURTING OR MAKING HIM BLEED FROM HIS MOUTH. 02SAT IS CURRENTLY 98% AND TEMP IS 99.4.WILL CONTINUE TO OBSERVE.
[2017-04-19 04:33] VITALS: BP 128/57
--- NOTE | 2017-04-19 05:41 | NUR ---
GOT BLOOD FROM CENTRAL LINE FOR BLOW MOLDER, PT TOLERATED WELL.
--- NOTE | 2017-04-19 05:42 | NUR ---
PATIENT IS CURRENTLY RESTING QUIETLY IN BED 02SAT 100% CONTINUES TO BE AT 2L VIA OXYMIZER AND IVF INFUSING WELL IV SITE PATENT.GTUBE FEEDING INFUSING WELL. RESIDUAL 25ML PATIENT TOLERATES FEEDING WELL. PATIENT CONTINUES TO BE CLEAN AND DRY.
[2017-04-19] MEDS: NACL 0.9% 1,000 ML IV SCH (05:43)
[2017-04-19] MEDS: KETOROLAC 15 MG/ML VIAL IVP SCH ×4 (06:11→23:35)
[2017-04-19 06:59] LABS: ANION GAP 12.2 (8-16); CARBON DIOXIDE 32.8 mmol/L (21-32); CREATININE 1.5 mg/dL (0.7-1.3)
[2017-04-19 07:00] LABS: MAGNESIUM 2.1 mg/dL (1.8-2.4); PHOSPHORUS 2.5 mg/dL (2.5-4.9)
[2017-04-19 07:15] LABS: BASOPHILS # (AUTO) 0.2 K/uL (0.00-0.22); BASOPHILS % (AUTO) 2.3 % (0.0-2.0); EOSINOPHILS % (AUTO) 0.4 % (0.0-4.0); HEMATOCRIT 23.6 % (36-52); HEMOGLOBIN 7.9 g/dL (12.0-18.0); LYMPHOCYTES # (AUTO) 1.1 K/uL (2.0-11.5); LYMPHOCYTES % (AUTO) 14.2 % (20.5-51.1); MEAN CORPUSCULAR HEMOGLOBIN 30 pg (27-31); MEAN CORPUSCULAR HGB CONC 33 g/dL (33-37); MEAN CORPUSCULAR VOLUME 88 fL (80-94); MONOCYTES # (AUTO) 1.1 K/uL (0.8-1.0); MONOCYTES % (AUTO) 14.5 % (1.7-9.3); NEUTROPHILS # (AUTO) 5.3 K/uL (1.8-7.7); NEUTROPHILS % (AUTO) 68.6 % (42.2-75.2); PLATELET COUNT (AUTO) 90 K/uL (140-450); RED BLOOD CELL COUNT(AUTO) 2.67 MIL/uL (4.20-6.10); RED CELL DISTRIBUTION WIDTH 13.5 % (11.6-13.7); WHITE BLOOD COUNT (AUTO) 7.8 K/uL (4.8-10.8)
--- NOTE | 2017-04-19 07:34 | NUR ---
PATIENT STABLE REPORT ENDORSED TO CRISTO MOLINA PATIENT CALM AND SLEEPING WITH OXYMIZER AT 2L 02SAT IS 100% IVF INFUSING WELL AND GTUBE FEEDING INFUSING WELL.PATIENT CONTINUES TO WEAR THE BILATERAL MITTENS ENDORSED TO CRISTO MOLINA THAT PATIENT PASSED GAS BUT NO BM YET.CRISTO MOLINA WILL FOLLOW UP.
--- NOTE | 2017-04-19 07:35 | NUR ---
RECEIVED REPORT FROM STAPLE FIBER WASHER NURSE. PATIENT LYING IN BED IN A RESTLESS MOOD. NO DISTRESS NOTED. RESPIRATORY THERAPIST AT BEDSIDE PERFORMING BREATHING TREATMENT AND NASOTRACH SUCTIONING. RSPIRATIONS EVEN, UNLABORED, ON O2 2L/MIN VIA OXIMIZER WITH O2 SAT AT 98%. PATIENT IS AA, APHASIC, NON-VERBAL, SKIN COLOR APPROPRIATE TO ETHNICITY, WARM TO TOUCH. HAS LEFT UPPER ARM SKIN HEALING SKIN ABRASION, DRESSING INTACT AND DRY, HAS REDNESS ON PERINEAL AREA, HOWEVER, SKIN IS INTACT. HAS LEFT CENTRAL LINE, TRIPLE LUMEN, THAT IS INTACT, PATENT, AND INFUSING IVF PER ORDERS. MITTENS ON B/L HANDS DUE TO PULLING ON LINES. GTUBE SITE INTACT, PATENT, 30 ML RESIDUAL NOTED. GTUBE FEEDING INFUSING PER MD ORDERS. WILL MONITOR RESIDUALS. REVIEWED PLAN OF CARE WITH PATIENT. UNABLE TO COMPREHEND, REINFORCEMENT NEEDED. SAFETY MEASURES IN PLACE, CALL LIGHT WITHIN REACH, SEIZURE PRECAUTIONS IN PLACE, FALL PREVENTIONS IN PLACE. WILL CONTINUE TO MONITOR.
[2017-04-19] MEDS: ALBUTEROL SULFATE/IPRATROPIU 3 ML SOL IH SCH ×3 (07:56→20:48)
[2017-04-19 08:00] VITALS: BP 107/55
--- NOTE | 2017-04-19 08:12 | NUR ---
RCV'D PT ON 2 L OXIMIZER SPO2 95%. PT HAD LOTS OF BLOODY SECRETIONS. NT SXN'D PT WITH HELP OD RT ROYAL. PT HAS MODERATED AMOUNT OF THICK BLOODY SECRETIONS. PT IS VERY COMBATIVE AND RESTLESS. WILL CONTINUE TO MONITOR.
--- NOTE | 2017-04-19 08:30 | NUR ---
PATIENT IN RESTLESS MOOD WITH INTERMITTENT YELLING. O2 SAT AT 93% WITH O2 2L/MIN VIA OXIMIZER. HAS +3 PITTING EDEMA ON B/L FOOTS. SAFETY MEASURES IN PLACE, CALL LIGHT WITHIN REACH. WILL CONTINUE TO MONITOR.
[2017-04-19] MEDS: levETIRAcetam 100 MG/ML ORASYR GT SCH ×2 (09:47→20:45)
[2017-04-19] MEDS: POTASSIUM CHLORIDE 20% 40 MEQ/15 ML UDC GT SCH (09:47)
[2017-04-19] MEDS: LACTULOSE 20 GM/30 ML UDC GT SCH (09:48)
[2017-04-19] MEDS: OXcarbazepine 150 MG TAB PO SCH ×2 (09:49→20:43)
[2017-04-19] MEDS: CALCIUM CARBONATE 500 MG TAB GT SCH ×2 (09:49→20:42)
[2017-04-19] MEDS: LACTOBACILLUS RHAMNOSUS GG 1 EACH CAP GT SCH (09:49)
[2017-04-19] MEDS: GLYCOPYRROLATE 1 MG TAB PO SCH ×3 (09:49→17:17)
[2017-04-19] MEDS: MULTIVITAMIN/MINERALS 1 TAB GT SCH (09:50)
[2017-04-19] MEDS: VITAMIN D 400 IU TAB GT SCH ×2 (09:50→20:41)
[2017-04-19] MEDS: carBAMazepine 200 MG TAB GT SCH ×3 (09:50→17:17)
[2017-04-19] MEDS: TIMOLOL OP 0.5% 5 ML BTL OP SCH ×2 (09:52→20:43)
[2017-04-19] MEDS: NYSTATIN POW 100 MU/GM 15 GM BTL TP SCH ×2 (09:52→20:44)
[2017-04-19] MEDS: MUPIROCIN 2% OINT 22 GM TUBE TP SCH (09:52)
[2017-04-19] MEDS: PHENYTOIN 100 MG/4 ML UDC GT SCH ×2 (09:58→20:44)
--- NOTE | 2017-04-19 10:15 | NUR ---
PATIENT LYING IN BED IN A CALMER MOOD. ASSISTED FISCAL ACCOUNTING CLERK IN CLEANING AND REPOSITIONING PATIENT. PATIENT LUNGS SOUNDS IS COURSE AND RHONCI HEARD THROUGHOUT ALL LOBES. ON O2 2L/MIN VIA OXIMIZER WITH O2 SAT AT 92%. SCHEDULED MEDICATIONS DUE GIVEN. SAFETY MEASURES IN PLACE, CALL LIGHT WITHIN REACH. WILL CONTINUE TO MONITOR.
--- NOTE | 2017-04-19 11:33 | NUR ---
GOT CALL FOR PT SOB. PT IS VERY RESTLESS SCREED OPERATOR HOLDING HIM DOWN IN BED. NT SXN'D PT . PT HAD LARGE AMOUNT OF BLOOD. MD VALENTIN AT BEDSIDE.
[2017-04-19 12:00] VITALS: BP 116/64
[2017-04-19] MEDS ORDERED: BISACODYL 10 MG SUPP RC SCH (12:00)
[2017-04-19] MEDS ORDERED: LORazepam 2 MG/ML VIAL IVP SCH (12:00)
[2017-04-19] MEDS ORDERED: POTASSIUM CHLORIDE 20% 40 MEQ/15 ML UDC GT SCH (12:00)
--- NOTE | 2017-04-19 12:09 | NUR ---
PATIENT LYING IN BED, RESTLESS, THRASHING HANDS. A LITTLE BLOOD NOTED ON PILLOW CASE DUE TO PATIENT BITING TONGUE. RESPIRATORY THERAPIST CALLED SINCE PATIENT SOUNDED CONGESTED. RT PERFORMED SUCTIONING. MODERATE AMOUND OF BLOOD SUCTIONED FROM RT. NOTIFIED MD OF ALL FINDINGS. MD ORDERED ONE DOSE OF ATIVAN TO HELP CALM DOWN PATIENT. WILL ADMINISTER PER ORDERS. OTHER SCHEDULED MEDICATIONS DUE GIVEN. SUPPOSITORY BISACODYL GIVEN PER MD ORDERS DUE TO NO BM WITHIN THE PAST 3 DAYS. SAFETY MEASURES IN PLACE, CALL LIGHT WITHIN REACH. WILL CONTINUE TO MONITOR.
[2017-04-19 12:58] LABS: BASOPHILS # (AUTO) 0.2 K/uL (0.00-0.22); BASOPHILS % (AUTO) 1.8 % (0.0-2.0); EOSINOPHILS # (AUTO) 0.1 K/uL (0-0.4); HEMATOCRIT 24.4 % (36-52); HEMOGLOBIN 8.2 g/dL (12.0-18.0); LYMPHOCYTES # (AUTO) 0.8 K/uL (2.0-11.5); LYMPHOCYTES % (AUTO) 8.4 % (20.5-51.1); MEAN CORPUSCULAR HEMOGLOBIN 30 pg (27-31); MEAN CORPUSCULAR HGB CONC 34 g/dL (33-37); MEAN CORPUSCULAR VOLUME 89 fL (80-94); MONOCYTES % (AUTO) 10.3 % (1.7-9.3); NEUTROPHILS # (AUTO) 7.2 K/uL (1.8-7.7); NEUTROPHILS % (AUTO) 78.5 % (42.2-75.2); PLATELET COUNT (AUTO) 88 K/uL (140-450); RED BLOOD CELL COUNT(AUTO) 2.75 MIL/uL (4.20-6.10); RED CELL DISTRIBUTION WIDTH 13.5 % (11.6-13.7); WHITE BLOOD COUNT (AUTO) 9.3 K/uL (4.8-10.8)
--- NOTE | 2017-04-19 13:49 | NUR ---
HHN TX NOT GIVEN. PT IS VERY RESTLESS AND COMBATIVE.WILL CONTINUE TO MONITOR.
--- NOTE | 2017-04-19 14:54 | NUR ---
PATIENT SLEEPING, AROUSABLE BY VOICE. NO DISTRESS NOTED. O2 SAT AT 95 % WITH O2 2L/MIN VIA OXIMIZER. SCHEDULED MEDICATIONS DUE GIVEN. NO BM YET AFTER GIVEN SUPPOSITORY EARLIER. WILL CONTINUE TO MONITOR.
[2017-04-19 16:00] VITALS: BP 129/69
[2017-04-19] MEDS: ACETAMINOPHEN 325 MG TAB GT PRN (16:03)
--- NOTE | 2017-04-19 19:25 | NUR ---
GAVE REPORT TO ELECTRO WINNING OPERATOR NURSE FOR CONTINUITY OF CARE. PATIENT IN STABLE CONDITION.
--- NOTE | 2017-04-19 19:25 | NUR ---
RECEIVED PT IN STABLE CONDITION FROM AM NURSE. PT IS CONFUSED. ON TELE MONITOR. ON O23L/BY OXYMIZER. SAT 97%. PT ON BEDREST. WITH IVF INFUSING WELL ON THE LT IJ TRIPLE LUMEN CENTRAL LINE. GT FEEDING INFUSING WELL . NO RESIDUAL NOTED. BUT ABDOMEN IS DISTENDED. NO BM NOTED PER AM NURSE. WILL CONTINUE TO GIVE ROUTINE STOOL SOFTENER. SKIN WITH SLIGHT REDNESS ON SACRAL AREA, REPOSITIONED FOR COMFORT. LT ARM WITH DRESSING . BED ON LOW POSITION. FREQUENT ROUNDS NEEDED. ON CONTACT ISOLATION FOR MRSA NARES. WILL CONTINUE TO MONITOR.
[2017-04-19 20:00] VITALS: BP 132/78
--- NOTE | 2017-04-19 20:00 | NUR ---
TEMP 102.2 BY TEMPORAL . REPOSITIONED FOR COMFORT. COOLING MEASURES DONE. WILL HAVE RESIDENT DOCTOR TO CHANGE TYLENOL TO Q4H.
[2017-04-19] MEDS ORDERED: ACETAMINOPHEN 325 MG TAB GT PRN (20:30)
[2017-04-19] MEDS: SIMVASTATIN 20 MG TAB GT SCH (20:42)
[2017-04-19] MEDS: POLYETHYLENE GLYCOL 17 GM/PKT GT SCH (20:42)
--- NOTE | 2017-04-19 20:45 | NUR ---
PT STILL CONGESTED. O2 SAY 94% 0. RT HERE AND ABOUT TO GIVE BREATHING TREATMENTS.
--- NOTE | 2017-04-19 22:00 | NUR ---
LATEST TEMP 100.8, CONTINUE WITH COOLING MEASURES.
[2017-04-19] MEDS ORDERED: LORazepam 2 MG/ML VIAL IVP PRN (23:30)
[2017-04-19] MEDS ORDERED: SODIUM PHOSPHATE 118 ML ENEM RC ONE (23:30)
[2017-04-20] VITALS (63 sets, daily range): BP systolic 51–166; BP diastolic 24–125
--- NOTE | 2017-04-20 | NUR ---
PATIENT REMAINS ON FENTANYL DRIP AND LEVOPHED DRIP, SUCTIONED ORALLY WITH BLOODY SECRETIONS. PEG TUBE CHECKED THROUGH AUSCULTATION AND ASPIRATION, PEG IN PLACED. BILATERAL SOFT WRIST RESTRAINTS ON, WILL CONTINUE TO MONITOR. Addendum: 04/20/17 at 1439 by Janay Adame RN WRONG TIME ENTRY, IT SHOULD AT 1200 04-20-17.
--- NOTE | 2017-04-20 00:26 | NUR ---
NO BM SINCE ADMISSION. ABDOMEN DISTENDED. FLEET ENEMA ONCE ORDERED GIVEN PER RECTUM. WILL MONITOR.
--- NOTE | 2017-04-20 02:00 | NUR ---
MADE ROUNDS. PT WITH CONTINUOUS PULSE OX , O2 SAT 96%. NO DISTRESS NOTED.
--- NOTE | 2017-04-20 04:15 | NUR ---
O2 SAT 88%. REPOSITIONED FOR COMFORT. O2 3L OXIMIZER. O2 SAT UP TO 96%. MOUTH CARE DONE. NO BM NOTED YET AFTER THE FLEET ENEMA. WILL STILL CONTINUE TO MONITOR.
--- NOTE | 2017-04-20 05:41 | NUR ---
0530 SXNED PATIENT NASALLY AND RECEIVED LARGE AMTS OF RED COPIOUS SECRETIONS.PATIENT HAS A WOUND ON HIS TONGUE
[2017-04-20] MEDS: NACL 0.9% 1,000 ML IV SCH (05:43)
[2017-04-20] MEDS: PIPER/TAZO 3.375GM/D5W PREMIX 50 ML IV SCH ×4 (06:09→23:33)
[2017-04-20] MEDS: KETOROLAC 15 MG/ML VIAL IVP SCH ×3 (06:11→18:19)
--- NOTE | 2017-04-20 06:40 | NUR ---
PT DESATURATING TO 74%-77% WITH O2 3L OXIMIZER. PAGED RT. O2 INCREASED TO 10L BUT STILL LOW 74 %. . AM RT ,FRANNIE CAME AND CHECKED ON PT. SHE SAID SHE NEED ABG TAKEN, SO DR. RAYMUNDO MADE AWARE. CAME ALSO ON THE ROOM. ORDERED ABG. RESULT ABNORMAL. STARTED ON BIPAP. O2 SAT UP TO 95%. DAQUAN SOFT WRIST RESTRAINT ALSO STARTED PER DR. RAYMUNDO.WILL CONTINUE TO MONITOR.
[2017-04-20 06:43] LABS: HEMOGLOBIN 8.8 g/dL (12.0-18.0); MEAN CORPUSCULAR HEMOGLOBIN 30 pg (27-31); MEAN CORPUSCULAR HGB CONC 34 g/dL (33-37); MEAN CORPUSCULAR VOLUME 89 fL (80-94); PLATELET COUNT (AUTO) 158 K/uL (140-450); RED BLOOD CELL COUNT(AUTO) 2.93 MIL/uL (4.20-6.10); RED CELL DISTRIBUTION WIDTH 13.8 % (11.6-13.7); WHITE BLOOD COUNT (AUTO) 16.8 K/uL (4.8-10.8)
[2017-04-20] MEDS: ALBUTEROL SULFATE/IPRATROPIU 3 ML SOL IH SCH ×3 (06:50→18:51)
--- NOTE | 2017-04-20 06:50 | NUR ---
PT PLACED ON BIPAP DUE TO VERY LOW O2 SAT OF 77% SETTINGS 12/24 RR 12 FIO1 100% ALARMS ON AND FUNCTIONING PROPERLY, AMBU BAG AT SIDE OF BIPAP I\L TX GIVEN WITH DUONEB 3ML WITH NO ADVERSE REACTION POST TX B\S ARE RHONCHI BILATERALLY, PT IS BITING HIS TONGUE MAKING IT BLEED,
--- NOTE | 2017-04-20 07:18 | NUR ---
ENDORSED PT IN FAIR CONDITION TO AM NURSE.
--- NOTE | 2017-04-20 07:19 | NUR ---
RECEIVED REPORT FROM CLASSROOM AIDE NURSE AT BEDSIDE FOR CONTINUITY OF CARE, PATIENT AWAKE AND APHASIC, PATIENT WITH BIPAP D/T DESAT. TOLERATING WELL. CENTRAL LINE TO LEFT JUGULAR WITH 3 LUMENS, NS INFUSING AT 20ML/HR . PER CLASSROOM AIDE NURSE FEEDING HELD D/T ABDOMINAL DISTENSION, NO BM SINCE ADMISSION. SLIGHT FEVER DURING NIGHT PER CLASSROOM AIDE NURSE. PATIENT ON SOFT WRIST RESTRAINTS D/T PATIENT PULLING AT BIPAP MASK, PER CLASSROOM AIDE NURSE PATIENT BIT TONGUE AND ORAL SUCTION BLOOD FROM MOUTH. PATIENT WITH G TUBE. STRAWBERRY ANGIOMA TO LEFT EYE AND NOTED ON RIGHT NECK. ST TO LEFT ARM WITH TEGADERM INTACT. WILL CONT TO MONITOR.
[2017-04-20 08:00] LABS: MAGNESIUM 2.7 mg/dL (1.8-2.4); PHOSPHORUS 7.8 mg/dL (2.5-4.9)
[2017-04-20 08:05] LABS: ANION GAP 14.7 (8-16); CARBON DIOXIDE 33.6 mmol/L (21-32); POTASSIUM 4.3 mmol/L (3.5-5.1)
[2017-04-20 08:06] LABS: CREATININE 1.8 mg/dL (0.7-1.3)
[2017-04-20 08:09] LABS: LYMPHOCYTES % (MANUAL) 16 % (20-46); MONOCYTES % (MANUAL) 7 % (5-12)
[2017-04-20] MEDS: PHENYTOIN 100 MG/4 ML UDC GT SCH ×2 (09:00→21:43)
[2017-04-20] MEDS: OXcarbazepine 150 MG TAB PO SCH ×2 (09:00→21:40)
[2017-04-20] MEDS: VITAMIN D 400 IU TAB GT SCH ×2 (09:00→21:40)
[2017-04-20] MEDS: LACTOBACILLUS RHAMNOSUS GG 1 EACH CAP GT SCH (09:00)
[2017-04-20] MEDS: GLYCOPYRROLATE 1 MG TAB PO SCH (09:00)
[2017-04-20] MEDS: NYSTATIN POW 100 MU/GM 15 GM BTL TP SCH ×2 (09:00→21:41)
[2017-04-20] MEDS: POTASSIUM CHLORIDE 20% 40 MEQ/15 ML UDC GT SCH (09:00)
[2017-04-20] MEDS: LACTULOSE 20 GM/30 ML UDC GT SCH (09:00)
[2017-04-20] MEDS: CALCIUM CARBONATE 500 MG TAB GT SCH ×2 (09:00→21:40)
[2017-04-20] MEDS: MULTIVITAMIN/MINERALS 1 TAB GT SCH (09:00)
[2017-04-20] MEDS: carBAMazepine 200 MG TAB GT SCH ×3 (09:00→19:03)
[2017-04-20] MEDS: levETIRAcetam 100 MG/ML ORASYR GT SCH ×2 (09:00→21:39)
--- NOTE | 2017-04-20 09:00 | NUR ---
ATTEMPTED TO ADMINISTER MEDICATION. MEDS ALL SCANNED IN. CHECKED G TUBE FOR PLACEMENT UNABLE TO CONFIRM PLACEMENT WITH AUSCULTATION. RESIDUAL CHECKED WITH 200ML OF BROWN LIQUID. HELD MEDICATION. NOTIFIED MD. PER RT ABG ABNORMAL, NEEDS TO BE INTUBATED. RT SPOKE TO DOCTOR. ORDERS IN. WILL TRANSFER PATIENT TO ICU .
--- NOTE | 2017-04-20 09:12 | NUR ---
bipap check, abg drawn on rr without incident and report give to dr. vaughan
--- NOTE | 2017-04-20 09:12 | NUR ---
gave dr. vaughan abg report for pt and he instructed to have pt transferred to icu then intubate yolanda oliva notified
--- NOTE | 2017-04-20 09:30 | NUR ---
PATIENT RECEIVED FROM TELEMETRY, ENDORSED BY NATE/RN. PATIENT WITH TLC ON LIJ, BLUE PORT CANT BE FLUSHED, WHITE AND BROWN PORTS WITH GOOD BLOOD RETURN, AWAITING FOR DR. SHERIDAN TO COME AND INTUBATE PATIENT.
--- NOTE | 2017-04-20 09:30 | NUR ---
tranferred pt to icu 8 and changed bipap settings 14\5 and rr 20 Addendum: 04/20/17 at 0943 by Mey Perez RT waiting for dr. vaughan to come to intubate pt
--- NOTE | 2017-04-20 09:50 | NUR ---
ASSISTED ICU NURSE WITH TRANSFERING PATIENT. RT ACCOMPANIED AT BEDSIDE. INTUBATION EQUIPMENT AT BEDSIDE. GAVE REPORT TO ICU NURSE AT BEDSIDE.
[2017-04-20] MEDS ORDERED: NACL 0.9% 1,000 ML IV SCH (09:55)
--- NOTE | 2017-04-20 10:06 | NUR ---
PT WAS INTUBATED BY DR. RAMIREZ WITH DR. SHERIDAN AT BEDSIDE, AT 107 PT CODED AND WAS GIVEN ACLS DRUGS AND ROSC AND PLACED ON CARESCAPE VENT WITH SETTINGS AC20 VT 450 PEEP 5 FIO2 100% SXN PT FOR MODERATED AMT OF BLOOD SECRETIONS PT HAS SCABS ON TONGUE AND LIPS B\S ARE RHONCHI BILATERALLY, AND INTUBATED WITH 7.5 ET TUBE SECURED AT 22 CM AT RIGHT CORNER OF MOUTH.
[2017-04-20] MEDS: NOREPINEPHRINE 8 MG in DEXTROSE 5% 250 ML IV PRN ×2 (10:54→19:12)
--- NOTE | 2017-04-20 11:00 | NUR ---
PATIENT RECEIVED FROM NATE/RN FROM TELE AROUND 929, PER REPORT RECEIVED, PATIENT WILL BE INTUBATED. DR. SHERIDAN (RESIDENT) CAME TO THE UNIT, INFORMED THAT PATIENT'S BP WAS 54/34 AT 0939, RECHECKED BP AT 0946 AT 51/25. DR. SHERIDAN ORDERED BOLUS NS [address] MOORE. ER DOCTOR CAME TO INTUBATE PATIENT WITH DR. SHERIDAN AT BEDSIDE. WHILE INTUBATING PATIENT, HR WENT DOWN TO 48 AND HEART RHYTHM WENT ASYSTOLE AT 1007, CALLED CODE BLUE, PATIENT WITH ROSC AT 1017. BP AT 1030 WENT DOEN TO 71/45, DR. SHERIDAN (RESIDENT) INFORMED BY TRISH, ICU CHARGE NURSE, ORDERED LEVOPHED DRIP. LEVOPHED DRIP AT 5 MCG/MIN STARTED AT THIS TIME.
[2017-04-20] MEDS: TIMOLOL OP 0.5% 5 ML BTL OP SCH ×2 (11:26→21:41)
[2017-04-20] MEDS: fentaNYL 1 MG in NACL 0.9% 80 ML IV PRN ×2 (11:42→19:14)
--- NOTE | 2017-04-20 12:41 | NUR ---
DECREASED FIO2 TO 50
--- NOTE | 2017-04-20 13:31 | NUR ---
VENT CHEKC, NO SXN REQUIRED AT THIS TIME, NO HHN GIVEN PT IS SLEEPING WITH NO SIGNS OF DISTRESS NOTED PT HAS CALMED DOWN
--- NOTE | 2017-04-20 13:33 | NUR ---
CALLED ALLISON SALAMANCA, FACILITY MGR WHERE PATIENT WAS STAYING ([facility]) AND INFORMED HER THAT PATIENT WAS TRANSFERRED TO ICU FROM TELE AT 0930, WAS INTUBATED AND CODED WITH ROSC.
--- NOTE | 2017-04-20 14:37 | NUR ---
STAFF FROM [facility] CAME TO SEE THE PATIENT , UPDATED ON PATIENT'S CURRENT STATUS
--- NOTE | 2017-04-20 15:20 | NUR ---
VENT CHECK, SXN PT LARGE AMT OF BRIGHT RED BLOOD B\S ARE RHONCHI BILATERALLY PT IS VERY AGITATED MOVING ABOUT CRISTO SIMS NOTIFIED
--- NOTE | 2017-04-20 15:45 | NUR ---
DR. OSORIO CAME IN THE UNIT TO SEE THE PATIENT WITH NEW ORDERS GIVEN. DR. VALENTIN (RESIDENT) HERE IN THE UNIT ALSO, INFORMED THAT PATIENT STILL AGITATED, FENTANYL DRIP AT 100 MCG/HR AT THIS TIME, MD SAID TO CONTINUE TITRATING UP FENTANYL UNTIL THE PATIENT IS NOT AGITATED.
[2017-04-20] MEDS ORDERED: MAGNESIUM CITRATE 300 ML BTL PO SCH (16:05)
[2017-04-20] MEDS: POLYETHYLENE GLYCOL 17 GM/PKT GT SCH (16:54)
--- NOTE | 2017-04-20 17:07 | NUR ---
VENT CHECK, SXN PT LARGE AMT OF BLOODY SECRETIONS, PT IS STILL VERY AGITATED
--- NOTE | 2017-04-20 17:45 | NUR ---
PT WAS REINTUBATED BY DR. URIBE WITH 8.0 ET TUBE SECURED WITH ANCHOR FAST AT 22CM AT RIGHT CORNER OF MOUTH
--- NOTE | 2017-04-20 17:59 | NUR ---
1730 NOTED SLIGHT GURGLING SOUND FROM THE PATIENT'S MOUTH, CALLED RESPIRATORY THERAPIST SUMAYA TO COME AND CHECK, PER RT PATIENT NEEDS TO BE REINTUBATED. RT CALLED DR. RICHARDSON, ED DOCTOR TO REINTUBATE PATIENT. PATIENT REINTUBATED AT 1745, INFORMED DR. VALENTIN (RESIDENT) ASKED MD TO ORDER STAT CXR, ASKED DR. VALENTIN IF HE WOULD CONSIDER TO GIVE ANOTHER MED FOR SEDATION, DR. VALENTIN SAID TO INCREASED THE FENTANYL DRIP TO 200 MCG/HR, PATIENT CURRENTLY AT 130 MCG/HR ON FENTANYL.
--- NOTE | 2017-04-20 18:11 | NUR ---
CRISTO GONZALEZ FROM [facility] HERE. INFORMED ABOUT THE REINTUBATION.
--- NOTE | 2017-04-20 18:51 | NUR ---
PER DR. VALENTIN WEAN FIO2 BUT MAINTAIN O2 SATURATION 92% OR GREATER
--- NOTE | 2017-04-20 18:55 | NUR ---
DR. VALENTIN HERE. DISCUSSED REGARDING GT FEEDING, PER RESIDENT HE WILL ORDER NPO FOR NOW.
--- NOTE | 2017-04-20 18:59 | NUR ---
DR. VALENTIN INFORMED THAT CXR RESULT FOR ETT PLACEMENT, PER RADIOLOGY NEEDS TO RETRACT 2 CMS, RESPIRATORY THERAPIST AWARE ALSO.
[2017-04-20] MEDS: ERYTHROMYCIN 100 MG in NACL 0.9% 100 ML IV SCH ×2 (19:14→23:33)
--- NOTE | 2017-04-20 19:20 | NUR ---
ET TUBE WAS FOUND AT 24CM AT LIP PER RADIOLOGIST WHO SPOKE TO GLENDY CALLEJAS STATED TO PULL TUBE BACK BY 2 CM, TUBE PULLED BACK TO 22CM AT LIP AND TAPED. MS PIKE RN NOTED
--- NOTE | 2017-04-20 19:30 | NUR ---
RECEIVED REPORT FORM BETHANYRN AT BEDSIDE, PT IS AGITATED, NONVERBAL, NOT ABLE TO FOLLOW COMMANDS, TRYING TO TAKE THE ETT TUBE OUT, ON FENTANYL DRIP AND SOFT RESTRAIN, LEFT FACE HEMANGIOMA NOTED, CENTRAL LINE TO LEFT IJ, TLC, PATENT, RUNNING LEVOPHED AT 15MCG/MIN, FANTAYL AT 200MCG/HR, AND NS AT 20ML/HR. ETT TO VENT WITH PRVC SETTING, FIO2 60, TV 450, R 20, PEEP 5, RHONCHI LUNG SOUNDS, SR ON PROGRAMS MANAGER, EXTENDED ABDOMEN NOTED WITH HYPOACTIVE BOWEL SOUNDS, GT IN PLACE, WITH 0 RESIDUALS, NPO EXCEPT MEDS AT THIS TIME, INCONTINENT, RIGID TO ALL EXTREMITIES, SKIN IS WARM AND DRY TO TOUCH, OPEN WOUND PRESENT (SEE WOUND ASSESSMENT), VSS, HOB ELEVATED 30 DEGREES, SAFETY PRECAUTION AND SEIZURE PRECAUTION IN PLACE, WILL CONTINUE TO MONITOR.
--- NOTE | 2017-04-20 19:30 | NUR ---
REPORT GIVEN TO MAURICIO ESPINOSA.
--- NOTE | 2017-04-20 20:10 | NUR ---
ORAL CARE PROVIDED, SUCTION WITH RED MUCOUS NOTED, POSITION CHANGED FOR OFF LOAD PRESSURE.
--- NOTE | 2017-04-20 20:49 | NUR ---
US DONE AT BEDSIDE, PT IS TOLERATED WELL.
--- NOTE | 2017-04-20 20:53 | NUR ---
US TECH REPORTED PT'S BLADDER IS EVERY FULL, DR. RAYMUNDO MADE AWARE, AND ORDERED STRAIGHT CATH ONCE ONLY.
--- NOTE | 2017-04-20 21:30 | NUR ---
STRAIGHT CATHETER DONE WITH URINE OUTPUT 1000ML.
--- NOTE | 2017-04-20 22:00 | NUR ---
PT IS VERY AGITATED, VERSED STARTED. SUCTION PROVIDED, POSITION CHANGED FOR OFF LOAD PRESSURE. VSS.
[2017-04-20] MEDS: MIDAZOLAM MDV 50 MG in NACL 0.9% 40 ML IV PRN (22:18)
[2017-04-21] VITALS (101 sets, daily range): BP systolic 39–136; BP diastolic 19–102
--- NOTE | 2017-04-21 | NUR ---
PT IS AWAKE, SHAKING HEAD TRYING TO PULL OUT THE TUBE, STILL ON RESTRAIN, INCREASED SEDATION, ORAL CARE AND SUCTION PROVIDED, POSITION CHANGED FOR OFF LOAD PRESSURE.
[2017-04-21] MEDS: FAMOTIDINE 20 MG/2 ML VIAL IV SCH ×2 (00:35→23:30)
[2017-04-21] MEDS: fentaNYL 1 MG in NACL 0.9% 80 ML IV PRN ×5 (00:39→23:30)
--- NOTE | 2017-04-21 02:00 | NUR ---
NO CHANGE OF CONDITION AT THIS TIME, VSS, POSITION CHANGED FOR OFF LOAD PRESSURE.
--- NOTE | 2017-04-21 03:00 | NUR ---
PATIENT TRANSFERED TO CT FOR ABD. SCAN AND RETURNED TO ICU #8 AT 0340 VIA AMBU 100% W/O Any RESP DISTRESS
--- NOTE | 2017-04-21 04:00 | NUR ---
BACK FROM CT, AM CARE AND ORAL CARE PROVIDED, POSITION CHANGED FOR OFF LOAD PRESSURE, PT TOLERATED WELL ON ALL THE PROCEDURE, VSS.
[2017-04-21 05:03] LABS: BASOPHILS # (AUTO) 0.2 K/uL (0.00-0.22); BASOPHILS % (AUTO) 2.1 % (0.0-2.0); EOSINOPHILS # (AUTO) 0.5 K/uL (0-0.4); EOSINOPHILS % (AUTO) 4.6 % (0.0-4.0); HEMOGLOBIN 7.8 g/dL (12.0-18.0); LYMPHOCYTES # (AUTO) 1.6 K/uL (2.0-11.5); MEAN CORPUSCULAR HEMOGLOBIN 30 pg (27-31); MEAN CORPUSCULAR HGB CONC 34 g/dL (33-37); MEAN CORPUSCULAR VOLUME 88 fL (80-94); MONOCYTES # (AUTO) 0.2 K/uL (0.8-1.0); MONOCYTES % (AUTO) 2.1 % (1.7-9.3); NEUTROPHILS # (AUTO) 7.6 K/uL (1.8-7.7); NEUTROPHILS % (AUTO) 75.2 % (42.2-75.2); PLATELET COUNT (AUTO) 175 K/uL (140-450); RED BLOOD CELL COUNT(AUTO) 2.62 MIL/uL (4.20-6.10); RED CELL DISTRIBUTION WIDTH 13.6 % (11.6-13.7); WHITE BLOOD COUNT (AUTO) 10.1 K/uL (4.8-10.8)
[2017-04-21] MEDS: NACL 0.9% 1,000 ML IV SCH (05:55)
[2017-04-21] MEDS: ERYTHROMYCIN 100 MG in NACL 0.9% 100 ML IV SCH ×4 (05:56→23:30)
[2017-04-21] MEDS: PIPER/TAZO 3.375GM/D5W PREMIX 50 ML IV SCH ×4 (05:56→23:30)
--- NOTE | 2017-04-21 06:00 | NUR ---
PT IS SEDATED, RASS -3, NO CHANGE OF CONDITION AT THIS TIME, VSS, POSITION CHANGED FOR OFF LOAD PRESSURE.
[2017-04-21] MEDS: NOREPINEPHRINE 8 MG in DEXTROSE 5% 250 ML IV PRN ×2 (06:02→21:15)
[2017-04-21 06:34] LABS: ANION GAP 14.7 (8-16); CARBON DIOXIDE 28.9 mmol/L (21-32); CREATININE 1.9 mg/dL (0.7-1.3)
[2017-04-21 06:40] LABS: MAGNESIUM 3.1 mg/dL (1.8-2.4); PHOSPHORUS 2.1 mg/dL (2.5-4.9)
[2017-04-21] MEDS: ALBUTEROL SULFATE/IPRATROPIU 3 ML SOL IH SCH ×3 (06:57→20:18)
--- NOTE | 2017-04-21 06:57 | NUR ---
REC'D PT ON CARESCAPE VENT SETTINGS AC\PRVC 20 VT 450 PEEP 5 TINSP 0.85 FIO2 40% ALARMS ON AND FUNCTIONING PROPERLY, I\L TX GIVEN WITH DUONEB 3ML WITH NO ADVERSE REACTION POST TX B\S ARE CLEAR BILATERALLY, AMBU BAG AT SIDE OF VENT AND VENT IS PLUGGED INTO RED OUTLET SXN PT MODERATE AMT OF BLOODY SECRETIONS, PT IS ORALLY INTUBATED WITH 8.0 ET TUBE SECURED WITH ANCHOR FAST AT 22 CM H20 PT IS RESTING
--- NOTE | 2017-04-21 07:33 | NUR ---
REPORT GIVEN TO CRISTO DELEON AT BEDSIDE FOR CONTINUE OF CARE, PT IS IN STABLE CONDITION AT THIS TIME.
--- NOTE | 2017-04-21 07:33 | NUR ---
RECEIVED REPORT FROM NOC SHIFT RN. PT SLEEPING IN BED. UNRESPONSIVE, NONVERBAL, WITHDRAWS TO PAIN. SR ON MONITOR. PT ON ETT TO VENT AC FIO2 40%TV 450R 20 AND PEEP 5. FACE AND LEFT EYE COVERED BY HEMANGIOMA. RIGHT EYE REACTIVE TO LIGHT. RHONCHI ON LUNGS AUSCULTATION. LEFT TRIPLE LUMEN CENTRAL LINE INTACT. LEVOPHED RUNNING AT 10 MCG/MIN, VERSED AT 4 MG/HR, FENTANYL AT 200 MCG/HR. ABDOMEN FIRM, ROUND AND NON-TENDER. GTUBE IN PLACE LUQ. BUE AND BLE DEFORMITY NOTED. KEPT HOB ELEVATED. BED IN LOW POSITION, LOCKED. WILL CONTINUE TO MONITOR.
[2017-04-21 08:27] LABS: POTASSIUM 2.6 mmol/L (3.5-5.1)
--- NOTE | 2017-04-21 08:48 | NUR ---
PT SEEN BY DR. STERLING AND RESIDENT GROUP, UPDATED PT'S CONDIYION. WILL FOLLOW UP ON ORDER.
--- NOTE | 2017-04-21 09:36 | NUR ---
VENT CHECK, SNX PT MODERATE AMT OF BLOODY SECRETIONS, CARE TAKERS AT BEDSIDE
[2017-04-21] MEDS: VITAMIN D 400 IU TAB GT SCH ×2 (09:54→21:12)
[2017-04-21] MEDS: CALCIUM CARBONATE 500 MG TAB GT SCH ×2 (09:55→21:12)
[2017-04-21] MEDS: LACTOBACILLUS RHAMNOSUS GG 1 EACH CAP GT SCH (09:56)
[2017-04-21] MEDS: PHENYTOIN 100 MG/4 ML UDC GT SCH ×2 (09:57→21:13)
[2017-04-21] MEDS: levETIRAcetam 100 MG/ML ORASYR GT SCH ×2 (09:57→21:13)
[2017-04-21] MEDS: POLYETHYLENE GLYCOL 17 GM/PKT GT SCH ×3 (09:58→16:57)
[2017-04-21] MEDS: POTASSIUM CHLORIDE 20% 40 MEQ/15 ML UDC GT SCH ×2 (10:00→21:13)
--- NOTE | 2017-04-21 10:00 | NUR ---
PT HAS BEEN ON SEDATION. NO ANY ATTEMPTS TO PULL TUBES. HENCE, DISCONTINUED RESTRAINS.
[2017-04-21] MEDS: MULTIVITAMIN/MINERALS 1 TAB GT SCH (10:01)
[2017-04-21] MEDS: carBAMazepine 200 MG TAB GT SCH ×3 (10:01→16:57)
[2017-04-21] MEDS: TIMOLOL OP 0.5% 5 ML BTL OP SCH ×2 (10:03→21:17)
[2017-04-21] MEDS: NYSTATIN POW 100 MU/GM 15 GM BTL TP SCH ×2 (10:03→21:17)
[2017-04-21] MEDS: MIDAZOLAM MDV 50 MG in NACL 0.9% 40 ML IV PRN (10:07)
[2017-04-21] MEDS: OXcarbazepine 150 MG TAB PO SCH ×2 (10:17→21:11)
[2017-04-21] MEDS ORDERED: SODIUM PHOSPHATE 118 ML ENEM RC PRN (10:30)
--- NOTE | 2017-04-21 10:35 | NUR ---
PT RESTING IN BED. NO RESPIRATORY DISTRESS. NO CHANGE IN LOC. WILL CONTINUE TO MONITOR.
--- NOTE | 2017-04-21 10:35 | NUR ---
DR. PACHECO IN TO SEE PT. WILL FOLLOW UP ON ORDER. Addendum: 04/21/17 at 1037 by Melva Nguyen RN AT 1015, PT SEEN BY DR. PACHECO. WILL FOLLOW UP ON ORDER
--- NOTE | 2017-04-21 10:51 | NUR ---
SEEN BY DR. OSORIO. ORDERED TO START GTUBE BOLUS FEEDING.
--- NOTE | 2017-04-21 11:09 | NUR ---
vent check, sxn pt small amt of bloody secretions, pt is resting
[2017-04-21] MEDS ORDERED: POTASSIUM CHLORIDE 20% 40 MEQ/15 ML UDC GT SCH (11:15)
[2017-04-21] MEDS: SENNA 8.6 MG TAB PO SCH ×2 (13:16→16:57)
--- NOTE | 2017-04-21 13:30 | NUR ---
Administered medication as per order. Started gtube bolus feeding as per order. Continuous on levophed drip. Withdraws to pain. No change in loc. Kept pt clean and dry. will continue to monitor.
--- NOTE | 2017-04-21 13:51 | NUR ---
vent check, no sxn needed at this time, airway is patent i\l tx given with duoneb 3ml with no adverse reaction post tx b\s are clear
--- NOTE | 2017-04-21 15:39 | NUR ---
vent check, no sxn needed airway is patent and pt is resting
--- NOTE | 2017-04-21 16:29 | NUR ---
04/21/17 RD FOLLOW UP COMPLETED. PLEASE REFER TO NUTRITION PROGRESS NOTE UNDER CARE ACTIVITY FOR ESTIMATED NUTRITION NEEDS. CURRENT DIET: BOLUS FEEDS 100 ML FIBERSOURCE HN, EVERY 4 HOURS. 30 ML FREE WATER EVERY 6 HOURS. THIS IS PROVIDING 720 KCALS, 32 GM PRO AND 605 ML FREE WATER PER DAY, TO MEET 48% EST KCAL, 54% EST PRO AND 41% EST FLUID NEEDS PER DAY PREVIOUS TUBE FEEDING ORDER: FIBERSOURCE 1.2 @ 55 ML/HR X 24 HOURS. THIS PROVIDES 1584 KCALS, 71 GM PRO AND 1967 ML FREE WATER PER DAY TO MEET 100% EST KCAL, 100% EST PRO AND 132% EST FLUID NEEDS PER DAY 1.CONSIDER RESUMING PREVIOUS TUBE FEEDING ONCE PT ABLE TO TOLERATE MORE VOLUME PER DAY 2. RD TO FOLLOW-UP 2-3DAYS, HIGH RISK POPEYE [address]FFRI[address] RD
--- NOTE | 2017-04-21 17:23 | NUR ---
ADMINISTERED MEDICINE PER ORDER. PT RESTING IN BED. UNABLE TO OPEN EYES, MOVES EXTREMITIES. CONTINUE ON VERSED AND FENTANYL DRIP. CONTINUE ON LEVOPHED DRIP. BP 92/56, HR 67. NO ACUTE DISTRESS NOTED. NO CHANGE IN LOC. WILL CONTINUE TO MONITOR.
--- NOTE | 2017-04-21 17:25 | NUR ---
VENT CHECK, NO SXN NEEDED AIRWAY IS PATENT AND PT IS RESTING
--- NOTE | 2017-04-21 19:30 | NUR ---
COME TO SEE PT. PER MD TO TITRATE DOWN THE FENTANYL. MED WAS 130 MCG/HR DECREASE TO 120 MCG/HR . BP IS 79/49 HR 67 AND SPO2 99%.
--- NOTE | 2017-04-21 19:40 | NUR ---
RECEIVED REPORT FROM AM SHIFT. PT IS SEDATED. PT ON ETT TO VENT WITH VENT SETTING AC RATE 20, TV 450, FIO2 40% AND PEEP 5. RHONCHI HEARD TO DAQUAN LUNGS. SR ON MONITOR. CENTRAL LINE TO LEFT IJ TRIPLE LUMENS. INTACT WELL WITH GOOD BLOOD RETURN NOTED. CONT ON FENTANYL DRIPS FROM 130 MCG/HR CHANGE TO 120 MCG/HR,CONTINUE ON LEVOPHED AT 10 MCG/MIN,CONT ON VERSED 4 MG/HR AND IV NS AT 20 CC/HR. CONT ON IV ABT ZOSYN AND ERYTHROMYCIN ORDER.GT IN PLACE TO LEFT UPPER QUADRANTS WITH TUBE FEEDING FIBERSOURCE HN 1.2 MARIO AT 100 CC AND H2O AT 30 CC Q 6 HRS TOLERATED WELL,NO RESIDUAL NOTED.ABD ROUND DISTENDED. NO S/S OF PAIN NOTED. BOWEL SOUNDS HYPOACTIVE TO ALL QUADRANTS.HEMANGIOMA ON FACE AREA.F/C IN PLACE WITH YELLOW CLEAR URINE NOTED. GENTLE CARE GIVEN. KEPT CLEAN AND DRY.
--- NOTE | 2017-04-21 19:46 | NUR ---
ENDORSED TO NOC SHIFT RN FOR CONTINUITY OF CARE. PT ON STABLE CONDITION.
--- NOTE | 2017-04-21 22:00 | NUR ---
NIGHT MEDS GIVEN AND TOLERATED WELL, PT NO FEVER. KEPT CLEAN AND DRY.
[2017-04-21] MEDS: MIDAZOLAM MDV 100 MG in NACL 0.9% 80 ML IV PRN (23:28)
[2017-04-22] VITALS (108 sets, daily range): BP systolic 57–177; BP diastolic 26–96
--- NOTE | 2017-04-22 01:58 | NUR ---
DECREASED FIO2 TO 28%. PT SPO2 IS STILL 100%. RN AWARE. NO SOB OR DISTRESS NOTED. WILL CONTINUE TO MONITOR.
--- NOTE | 2017-04-22 03:00 | NUR ---
PT CALM . NO S/S OF RESP DISTRESS,NO SOB.
--- NOTE | 2017-04-22 04:00 | NUR ---
AM CARE GIVEN. SPONGE BATH GIVEN.,VAP ORAL CARE GIVEN AND F/C CARE GIVEN. KEPT PT CLEAN AND DRY.
--- NOTE | 2017-04-22 05:00 | NUR ---
PT HAS NO BM AND ABD IS DISTENDED DULCOLAX SUPP GIVEN PRN ORDER.
[2017-04-22] MEDS: NOREPINEPHRINE 8 MG in DEXTROSE 5% 250 ML IV PRN ×3 (05:03→23:37)
[2017-04-22] MEDS: ERYTHROMYCIN 100 MG in NACL 0.9% 100 ML IV SCH ×4 (05:10→23:32)
[2017-04-22] MEDS: PIPER/TAZO 3.375GM/D5W PREMIX 50 ML IV SCH ×4 (05:10→23:32)
[2017-04-22] MEDS: BISACODYL 10 MG SUPP RC PRN (05:11)
[2017-04-22] MEDS: NACL 0.9% 1,000 ML IV SCH (05:23)
--- NOTE | 2017-04-22 05:57 | NUR ---
AM MEDS GIVEN TOLERATED WELL.
[2017-04-22] MEDS: ALBUTEROL SULFATE/IPRATROPIU 3 ML SOL IH SCH ×3 (06:50→19:08)
--- NOTE | 2017-04-22 07:15 | NUR ---
REPORT GIVEN TO CARMEN LEMONS AM SHIFT. PT IS STABLE AT THIS TIME.
[2017-04-22 07:23] LABS: PHENYTOIN (DILANTIN) 22.5 ug/ml (10.0-20.0)
--- NOTE | 2017-04-22 07:30 | NUR ---
RECEIVED REPORT FROM СЕРГЕЙ LEMONS. PT SEDATED, RASS -3. PERRL NOTED. FLACC 0. ETT TO VENT. TOLERATING WELL. ORAL CARE PROVIDED. EQUAL, UNLABORED BREATH NOTED. TOLERATING WELL. SKIN NONINTACT. SEE WOUND ASSESSMENT. PULSE PALPABLE X 4 QUADRANT. ABDOMEN DISTENDED, NONTENDER. BOWEL SOUND PRESENT X 4 QUADRANT. G TUBE NOTED. 0 RESIDUAL NOTED. WEST CATHETER IN PLACED. DRAINING YELLOW URINE. NO S/SX OF ACUTE DISTRESS NOTED. VITALS WITHIN NORMAL. BED AT LOWEST SETTING. CALL LIGHT WITHIN REACH. WILL CONTINUE TO MONITOR.
--- NOTE | 2017-04-22 08:13 | NUR ---
PER DR QUESADA, HOLD DILANTIN AND CARBAMAZEPINE FOR 24 HOURS D/T LAB VALUES. WILL REDRAW LEVEL TOMORROW.
[2017-04-22] MEDS: PHENYTOIN 100 MG/4 ML UDC GT SCH ×2 (08:34→20:52)
[2017-04-22] MEDS: carBAMazepine 200 MG TAB GT SCH ×3 (08:35→17:00)
--- NOTE | 2017-04-22 08:50 | NUR ---
0 RESIDUAL NOTED IN FEEDING TUBE. MEDICATION ADMINISTERED ORDERED.
[2017-04-22] MEDS: POTASSIUM CHLORIDE 20% 40 MEQ/15 ML UDC GT SCH ×2 (08:52→20:52)
[2017-04-22] MEDS: LACTOBACILLUS RHAMNOSUS GG 1 EACH CAP GT SCH (08:52)
[2017-04-22] MEDS: MULTIVITAMIN/MINERALS 1 TAB GT SCH (08:52)
[2017-04-22] MEDS: POLYETHYLENE GLYCOL 17 GM/PKT GT SCH ×3 (08:52→17:00)
[2017-04-22] MEDS: OXcarbazepine 150 MG TAB PO SCH ×2 (08:53→20:52)
[2017-04-22] MEDS: CALCIUM CARBONATE 500 MG TAB GT SCH ×2 (08:53→20:54)
[2017-04-22] MEDS: levETIRAcetam 100 MG/ML ORASYR GT SCH ×2 (08:53→20:53)
[2017-04-22] MEDS: SENNA 8.6 MG TAB PO SCH ×3 (08:53→17:00)
[2017-04-22] MEDS: NYSTATIN POW 100 MU/GM 15 GM BTL TP SCH ×2 (08:54→20:55)
[2017-04-22] MEDS: TIMOLOL OP 0.5% 5 ML BTL OP SCH ×2 (08:54→20:54)
[2017-04-22] MEDS: VITAMIN D 400 IU TAB GT SCH ×2 (08:54→20:53)
[2017-04-22 08:55] LABS: BASOPHILS # (AUTO) 0.1 K/uL (0.00-0.22); BASOPHILS % (AUTO) 0.7 % (0.0-2.0); EOSINOPHILS # (AUTO) 0.5 K/uL (0-0.4); HEMATOCRIT 25.5 % (36-52); HEMOGLOBIN 8.6 g/dL (12.0-18.0); LYMPHOCYTES # (AUTO) 1.2 K/uL (2.0-11.5); LYMPHOCYTES % (AUTO) 10.9 % (20.5-51.1); MEAN CORPUSCULAR HEMOGLOBIN 30 pg (27-31); MEAN CORPUSCULAR HGB CONC 34 g/dL (33-37); MEAN CORPUSCULAR VOLUME 88 fL (80-94); MONOCYTES # (AUTO) 0.3 K/uL (0.8-1.0); MONOCYTES % (AUTO) 2.3 % (1.7-9.3); NEUTROPHILS # (AUTO) 9.2 K/uL (1.8-7.7); NEUTROPHILS % (AUTO) 82.1 % (42.2-75.2); PLATELET COUNT (AUTO) 217 K/uL (140-450); RED CELL DISTRIBUTION WIDTH 13.5 % (11.6-13.7); WHITE BLOOD COUNT (AUTO) 11.4 K/uL (4.8-10.8)
[2017-04-22] MEDS ORDERED: SODIUM PHOSPHATE 118 ML ENEM RC SCH (08:57)
--- NOTE | 2017-04-22 08:59 | NUR ---
XRAY AT BEDSIDE TO SEE PT
[2017-04-22 09:02] LABS: CARBON DIOXIDE 24.9 mmol/L (21-32); POTASSIUM 3.9 mmol/L (3.5-5.1)
[2017-04-22 09:03] LABS: MAGNESIUM 3.3 mg/dL (1.8-2.4); PHOSPHORUS 1.4 mg/dL (2.5-4.9)
--- NOTE | 2017-04-22 09:30 | NUR ---
ULTRASOUND BEDSIDE TO SEE PT
--- NOTE | 2017-04-22 09:45 | NUR ---
FLEET ENEMA GIVEN. TOLERATED WELL. WILL AWAIT RESULT.
[2017-04-22] MEDS ORDERED: PROBIOTIC SCREEN 1 EA MISC MC PRN (10:25)
--- NOTE | 2017-04-22 10:45 | NUR ---
NO BM NOTED AT THIS TIME. WILL CONTINUE TO ASSESS.
--- NOTE | 2017-04-22 11:29 | NUR ---
NO BM NOTED AT THIS TIME. WILL CONTINUE TO ASSESS.
--- NOTE | 2017-04-22 12:04 | NUR ---
DR. OSORIO AT BEDSIDE TO SEE PT. NOTIFIED MD OF NO BM DESPITE ENEMA.
[2017-04-22] MEDS ORDERED: NEOSTIGMINE 1:1000 10 MG/10 ML VIAL IV SCH (12:30)
[2017-04-22] MEDS ORDERED: POTASSIUM CHLORIDE 20% 40 MEQ/15 ML UDC GT SCH (12:30)
[2017-04-22] MEDS: fentaNYL 1 MG in NACL 0.9% 80 ML IV PRN ×2 (12:30→23:39)
--- NOTE | 2017-04-22 12:35 | NUR ---
PER DR QUESADA, WILL SKIP 1 X DOSE OF POTASSIUM ORDERED NOW D/T PT BEING ON SAME DOSE SCHEDULED BID AND CURRENT LAB RESULT SHOWS WITHIN RANGE
--- NOTE | 2017-04-22 13:10 | NUR ---
ADMINISTER MEDICATION. PT TOLERATED WELL.WILL PERFORM FREQUENT ASSESSMENT FOR BRADYCARDIA NEEDED
--- NOTE | 2017-04-22 14:00 | NUR ---
PT TOLERATED WELL. BRADYCARDIA IN THE 50S NOTED. WILL CONTINUE TO MONITOR. NO S/SX OF ACUTE DISTRESS NOTED.
--- NOTE | 2017-04-22 15:28 | NUR ---
PT RESTING IN BED. SEDATED. FLACC 0. NO S/SX OF ACUTE DISTRESS NOTED. WILL CONTINUE TO MONITOR.
--- NOTE | 2017-04-22 17:15 | NUR ---
continued to monitor pt on vent with settings as charterd breath sounds present bilat clear sxn pt with min amt off secs vent plugged into red outlet ambu bag at bedside
--- NOTE | 2017-04-22 18:50 | NUR ---
PT RESTING IN BED. SEDATED. NO S/SX OF ACUTE DISTRESS NOTED.
--- NOTE | 2017-04-22 19:19 | NUR ---
RCV'D PT ON MECHANICAL VENTILATION SETTINGS CHARTED WITH 8.0 ETT. AIRWAY IS IN PLACE AND SECURED. VENT IS CONNECTED TO RED OUTLET, ALARMS ARE AUDIBLE, AMBU BAG AT BEDSIDE. HHN TX OF DUONEB IS GIVEN. NO SOB OR DISTRESS NOTED WILL CONTINUE .
--- NOTE | 2017-04-22 19:30 | NUR ---
RECEIVED REPORT FROM AM SHIFT PT IS SEDATED. NO S/S OF RESP DISTRESS NO SOB AT THIS TIME. CONT ON ETT TO VENT WITH VENT SETTING AC RATE 20 TV 450 FIO2 28% AND PEEP 5. HOB UP 30-45 DEGREES AT ALL THE TIMES. DAQUAN LUNGS SOUND RHONCHI. SINUS JEANNIE ON MONITOR. CENTRAL LINE TO LEFT IJ TRIPLE LUMEN INTACT WELL.NO S/S OF INFECTION ON THE SITE. CONT ON VERSED DRIPS AT 2 MG/HR,FENTANYL DRIP 100 MCG/HR AND LEVOPHED AT 14 MCG/MIN.CONT ON IV ABTS ORDER. GT IN PLACE. GT FEEDING FIBERSOURCE HN 1.2 MARIO AT 150 CC Q 4HRS AND H20 30 CC Q 6HRS NOTED 60 RESIDUAL AT THIS TIME. ABD ROUND AND DISTENDED. HYPOACTIVE BOWEL SOUNDS NOTED.NO BM AT THIS TIME YET. EDEMA NOTED ON SCROTUM AREA.F/C IN PLACE WITH YELLOW CLEAR COLOR.GENTLE CARE GIVEN.KEPT CLEAN AND DRY.
--- NOTE | 2017-04-22 20:15 | NUR ---
HOLD THE VERSED AT THIS TIME.
--- NOTE | 2017-04-22 21:57 | NUR ---
DECREASE FENTANYL DRIPS TO 90 MCG/HR.
--- NOTE | 2017-04-22 22:28 | NUR ---
DECREASE FENTANYL TO 80 MCG/HR TOLERATED WELL. RASS -3.
[2017-04-22] MEDS: FAMOTIDINE 20 MG/2 ML VIAL IV SCH (23:32)
--- NOTE | 2017-04-22 23:37 | NUR ---
INCREASE LEVOPHED TO 15 MCG/MIN B/P WAS 85/49 TOLERATED WELL B/P INCREASE TO 98/36.
--- NOTE | 2017-04-22 23:39 | NUR ---
FENTANYL DECREASE TO 70 MCG/HR = 7 ML/HR.
[2017-04-23] VITALS (102 sets, daily range): BP systolic 42–174; BP diastolic 16–106
--- NOTE | 2017-04-23 | NUR ---
FENTANYL DECREASE TO 60 MCG/HR TO KEPT RASS -3 TOLERATED WELL.
--- NOTE | 2017-04-23 02:10 | NUR ---
DECREASE FENTANYL DRIPS TO 50 MCG/HR TO KEPT RASS -3 TOLERATED WELL.
--- NOTE | 2017-04-23 04:30 | NUR ---
GT FEEDING ON HOLD AT THIS TIME D/T 500 CC RESIDUAL. CONT TO MONITOR
[2017-04-23 05:09] LABS: HEMATOCRIT 24.7 % (36-52); HEMOGLOBIN 8.1 g/dL (12.0-18.0); MEAN CORPUSCULAR HEMOGLOBIN 29 pg (27-31); MEAN CORPUSCULAR HGB CONC 33 g/dL (33-37); MEAN CORPUSCULAR VOLUME 88 fL (80-94); PLATELET COUNT (AUTO) 202 K/uL (140-450); RED BLOOD CELL COUNT(AUTO) 2.81 MIL/uL (4.20-6.10); RED CELL DISTRIBUTION WIDTH 13.6 % (11.6-13.7); WHITE BLOOD COUNT (AUTO) 9.8 K/uL (4.8-10.8)
[2017-04-23] MEDS: NACL 0.9% 1,000 ML IV SCH ×2 (05:09→21:43)
[2017-04-23] MEDS: BISACODYL 10 MG SUPP RC PRN (05:10)
[2017-04-23] MEDS: PIPER/TAZO 3.375GM/D5W PREMIX 50 ML IV SCH ×3 (05:16→18:43)
[2017-04-23] MEDS: ERYTHROMYCIN 100 MG in NACL 0.9% 100 ML IV SCH ×2 (05:16→12:28)
--- NOTE | 2017-04-23 05:20 | NUR ---
PT NO BM YET ,ABD SOFT DISTENDED, DULCOLAX SUPP PRN GIVEN ORDER. NOTED URINATE 600 CC YELLOW CLEAR COLOR.KEPT CLEAN AND DRY
--- NOTE | 2017-04-23 05:40 | NUR ---
AM CARE GIVEN, SPONGE BATH GIVEN,VAP ORAL CARE GIVEN AND F/C CARE RENDERED.KEPT CLEAN AND DRY.
--- NOTE | 2017-04-23 05:53 | NUR ---
DR.WIELE HERR MADE AWARE GT RESIDUAL IS 500 CC AND STILL NO BM YET DULCOLAX WA GIVEN.
[2017-04-23 06:00] LABS: PROTHROMBIN TIME 13.5 secs (10.8-13.4)
[2017-04-23 06:03] LABS: ANION GAP 20.2 (8-16); CARBON DIOXIDE 22.9 mmol/L (21-32); CREATININE 1.8 mg/dL (0.7-1.3); POTASSIUM 4.1 mmol/L (3.5-5.1)
--- NOTE | 2017-04-23 06:15 | NUR ---
DR SANGITA GOTTLIEB ALSO MADE AWARE PT NO BM YET DULCOLAX SUPP WAS GIVEN AND GT RESIDUAL 500 CC ALSO FEEDING STILL ON HOLD AT THIS TIME.
[2017-04-23 06:44] LABS: EOSINOPHILS % (MANUAL) 2 % (0-4); LYMPHOCYTES % (MANUAL) 8 % (20-46); MONOCYTES % (MANUAL) 3 % (5-12); PHENYTOIN (DILANTIN) 18.7 ug/ml (10.0-20.0)
--- NOTE | 2017-04-23 07:00 | NUR ---
RECEIVED REPORT FROM FRED AT 0700, CURRENTLY ON 15 MCG/MIN NOREPI, 50 MCG/MIN FENTANYL, AND 50ML/HR 0.9% SODIUM CHLORIDE. ASSESSMENT PERFORMED, PT SEDATED, SCROTAL EDEMA PRESENT, ABDOMEN DISTENDED AND NO BM AT THIS TIME. PT RESIDUALS UNDER 100 CC, CHECKED AND REPLACED. BOTH EYES PERRLA SIZE 2. PT. PT. ON ETT TUBE, FIO2 28%, PEEP 5, PEAK PRESSURE 31, RESPIRATORY RATE 20, BP 96/54. EDEMA ON LOWER LIMBS. ABRASION NOTED ON LEFT ELBOW, DRESSING DRY AND IN TACT. SCD ON PT. HOB 35% AND PT BED LEFT IN LOWEST POSITION. S1, S2 HEARD ON CARDIAC ASSESSMENT AND BOWEL SOUNDS ARE HYPOACTIVE. LUNG SOUNDS CLEAR BILATERALLY. REPOSITIONED PT IN BED WITH PILLOWS.
[2017-04-23] MEDS: ALBUTEROL SULFATE/IPRATROPIU 3 ML SOL IH SCH ×3 (07:06→19:53)
[2017-04-23] MEDS ORDERED: SODIUM PHOSPHATE 118 ML ENEM RC PRN (07:55)
--- NOTE | 2017-04-23 08:00 | NUR ---
VAP ORAL CARE PROTOCOL PROVIDED. PT WAS SUCTIONED AND HANDLED ORAL CARE AND REPOSITIONING WITHOUT A DROP IN VITALS.
[2017-04-23] MEDS ORDERED: ACETAMINOPHEN 650 MG/20.3 ML UDC GT PRN (08:01)
--- NOTE | 2017-04-23 08:09 | NUR ---
INCREASED NorEPI with Taisha to 17MCG. 31.89mL due to low BP 50/36. BP went up to 116/78, MAP 93
--- NOTE | 2017-04-23 08:50 | NUR ---
DECREASED NOREPI TO 15MCG/MIN FOR BP 166/101, BP REDUCED TO 157/91.
[2017-04-23] MEDS: POTASSIUM CHLORIDE 20% 40 MEQ/15 ML UDC GT SCH ×2 (09:27→20:53)
[2017-04-23] MEDS: levETIRAcetam 100 MG/ML ORASYR GT SCH ×2 (09:27→20:52)
[2017-04-23] MEDS: MULTIVITAMIN/MINERALS 1 TAB GT SCH (09:28)
[2017-04-23] MEDS: PHENYTOIN 100 MG/4 ML UDC GT SCH ×2 (09:28→20:52)
[2017-04-23] MEDS: LACTOBACILLUS RHAMNOSUS GG 1 EACH CAP GT SCH (09:28)
[2017-04-23] MEDS: SENNA 8.6 MG TAB PO SCH ×4 (09:28→17:31)
[2017-04-23] MEDS: POLYETHYLENE GLYCOL 17 GM/PKT GT SCH ×4 (09:29→17:30)
[2017-04-23] MEDS: CALCIUM CARBONATE 500 MG TAB GT SCH ×2 (09:29→20:53)
[2017-04-23] MEDS: VITAMIN D 400 IU TAB GT SCH ×2 (09:29→20:53)
[2017-04-23] MEDS: OXcarbazepine 150 MG TAB PO SCH ×2 (09:29→20:53)
[2017-04-23] MEDS: TIMOLOL OP 0.5% 5 ML BTL OP SCH ×2 (09:30→21:00)
[2017-04-23] MEDS: NYSTATIN POW 100 MU/GM 15 GM BTL TP SCH ×2 (09:31→21:00)
[2017-04-23] MEDS: NOREPINEPHRINE 8 MG in DEXTROSE 5% 250 ML IV PRN ×2 (10:29→18:59)
--- NOTE | 2017-04-23 10:30 | NUR ---
NOREPI TITRATED BACK UP TO 17MCG/MIN FOR LOW BP (64/36),PREVIOUSLY SET ON 15MCG/MIN. BP NOW 96/44 MAP 73. VAP ORAL CARE PROVIDED.
--- NOTE | 2017-04-23 11:00 | NUR ---
PROVIDED PT WITH WEST CATH CARE. PT STILL SEDATED ON FENTANYL 50 ML/HR, NOREPI STILL ON 17MCG/MIN. PT BP 148/85 MAP 111.
--- NOTE | 2017-04-23 11:29 | NUR ---
PT SUCTIONED OBTAINED SMALL AMOUNT OF THICK BROWN SECRETIONS, AIRWAY IS PATENT ETT IS SECURE.
--- NOTE | 2017-04-23 12:00 | NUR ---
ORAL CARE FOR VAP, SUCTIONED PT. AND APPLIED MOISTURE TO LIPS AND MOUTH. IT WAS STATED PT BIT PART OF TONGUE DURING SEIZURE AND WILL CONTINUE TO MONITOR.
--- NOTE | 2017-04-23 12:00 | NUR ---
TEMPERATURE CHECKED AT 1200, 86.7, JAZMIN HUDAVIDEER APPLIED, SET TO 38 DEG C. WILL CONTINUE TO MONITOR AND CHECK TEMPERATURE IN 15 MINS.
--- NOTE | 2017-04-23 12:20 | NUR ---
JAZMIN PERKINS ON FOR 20 MINS, PT. TEMP INCREASED TO 86.1. WILL CONTINUE TO MONITOR
--- NOTE | 2017-04-23 13:00 | NUR ---
PTS TEMPERATURE REMAINS LOW, TURNED JAZMIN HUGGER UP TO 43 DEGREES C. WILL CLOSELY MONITOR.
--- NOTE | 2017-04-23 13:31 | NUR ---
VENT CHECK COMPLETED AND BREATHING TX ADMINISTERED. PT IS NOT SOB AND NOT IN RESPIRATORY DISTRESS AT THIS TIME. WILL CONTINUE TO MONITOR.
--- NOTE | 2017-04-23 14:22 | NUR ---
GAVE PT BED BATH AND CHECKED FOR MOISTURE ON BODY. PT SKIN WAS IN TACT, WARM AND DRY.
--- NOTE | 2017-04-23 14:25 | NUR ---
SPOKE WITH DR. QUESADA ABOUT PT HAVING 300+ mL OF STOMACH RESIDUALS. HOLDING ALL 1300 MEDS FOR NOW. WILL CHECK RESIDUALS BEFORE NEXT MEDICATION ADMIN.
[2017-04-23] MEDS ORDERED: NEOSTIGMINE 1:1000 10 MG/10 ML VIAL IV SCH (15:30)
--- NOTE | 2017-04-23 15:50 | NUR ---
PT TEMPERATURE 95.4 WITH JAZMIN PERKINS STILL ON RUNNING 42 DEG. C.
--- NOTE | 2017-04-23 16:00 | NUR ---
ORAL CARE PROVIDED AND MOISTURIZER APPLIED
--- NOTE | 2017-04-23 16:05 | NUR ---
04/23/17 RD FOLLOW UP COMPLETED. PLEASE REFER TO NUTRITION ASSESSMENT UNDER CARE ACTIVITY FOR ESTIMATED NUTRITIONAL NEEDS. CURRENT BOLUS FEEDING ORDERED WILL PROVIDE 1080 KCALS AND 49 GM PRO/DAY TO MEET 73% EST KCAL AND 83% EST PRO NEED/DAY ONCE CONSTIPATION RESOLVES AND PT IS ABLE TO TOLERATE INCREASED BOLUS FEEDS, MAY CONSIDER: FIBERSOURCE HN, 250 ML EVERY 4 HOURS. THIS WILL PROVIDE 1800 KCALS AND 81 GM PRO/DAY TO MEET 101% EST KCAL AND 114% EST PRO NEEDS/DAY RD TO FOLLOW-UP IN 2-3 DAYS PATIENT IS HIGH RISK. POPEYE JEFFRIES, RD
--- NOTE | 2017-04-23 16:51 | NUR ---
PT RESIDUALS 100ML, WILL PROCEED WITH 1700 MEDICATIONS
--- NOTE | 2017-04-23 16:58 | NUR ---
FACE SHEET SENT TO [facility] FOR LTAC EVAL.
--- NOTE | 2017-04-23 17:10 | NUR ---
GAVE REPORT TO СЕРГЕЙ. PT WAS TITRATED TO 19MCG/MIN OF LEVOPHED TO KEEP SBP OVER 90. PT MAP BELOW 65. REPOSITIONED PT. AND LEFT BED IN THE LOWEST POSITION. APPLIED MOISTURIZER TO LIPS AND MOUTH AND WIPED FACE.
--- NOTE | 2017-04-23 17:58 | NUR ---
PT REMAINS ON DOCUMENTED SETTINGS. PT IS NOT ALERT BUT IS NOT IN ANY DISTRESS AT THIS TIME. ETT REMAINS SECURE WITH ANCHOR FAST DEVICE. VENT ALARMS REMAIN ON AND FUNCTIONING.
--- NOTE | 2017-04-23 18:55 | NUR ---
PT TEMP AT 1855 WAS 96.8, TURNED TEMP ON JAZMIN GGER DOWN TO 38 DEG C.
[2017-04-23] MEDS: MIDODRINE 5 MG TAB PO SCH (19:00)
--- NOTE | 2017-04-23 19:10 | NUR ---
RECEIVED REPORT FROM ISRAEL RIVERA. PT IS SEDATED. CONTINUE ON ETT TO VENT WITH VENT SETTING AC RATE 20, TV 450,FIO2 28% AND PEEP OF 5 JARRETT WELL. HOB UP 30-45 DEGREE ALL THE TIME. NO S/S OF DISTRESS,NO SOB AT THIS TIME. DAQUAN LUNGS SOUND RHONCHI. CENTRAL LINE TO LEFT IJ TRIPLE LUMENS . NO S/S OF INFECTION ON THE SITE. CONT ON FENTANYL DRIPS AT 50 MCG/HR AND LEVOPHED AT 20 MCG/MIN.NS AT 50 CC/HR .GT INPLACE PLACEMENT CONFIRM. NOTED 120 CC RESIDUAL AT THIS TIME. ABD ROUND DISTENDED. EDEMA NOTED ON SCROTUM AND PENIS AREA, EDEMA BOTH FEET PITTING +1. SKIN WARM TO TOUCH T 96.5 CONTINUE ON BEAR HUGGER AT SETTING 38DEGREES. F/C INPLACE WITH YELLOW CLEAR URINE. GENTLE CARE GIVEN. KEPT CLEAN AND DRY.CALL LIGHT IN REACH.
--- NOTE | 2017-04-23 19:15 | NUR ---
INCREASE THE LEVOPHED TO 22 MCG/MIN BP 82/47 ,HR 75,SPO2 99%.
[2017-04-23] MEDS: fentaNYL 1 MG in NACL 0.9% 80 ML IV PRN (20:49)
--- NOTE | 2017-04-23 21:15 | NUR ---
NIGHTS MEDS GIVEN ORDER.
--- NOTE | 2017-04-23 21:30 | NUR ---
TEMP 97.1 BEAR HUGGER SETTING DECREASE TO 32 DEGREES.
[2017-04-24] VITALS (107 sets, daily range): BP systolic 56–146; BP diastolic 31–94
--- NOTE | 2017-04-24 00:30 | NUR ---
GT RESIDUAL IS 60 CC. RESTART THE GT FIBERSOURCE HN 1.2 MARIO AT 150 Q 4HRS AND H20 ORDER. IV ABT GIVEN ORDER' T 97.5.BEAR HUGGER SETTING ON 32DEGREES TOLERATED WELL.
[2017-04-24] MEDS: FAMOTIDINE 20 MG/2 ML VIAL IV SCH ×2 (00:34→23:21)
[2017-04-24] MEDS: PIPER/TAZO 3.375GM/D5W PREMIX 50 ML IV SCH ×4 (00:34→23:20)
[2017-04-24] MEDS: NOREPINEPHRINE 8 MG in DEXTROSE 5% 250 ML IV PRN ×4 (00:38→18:53)
--- NOTE | 2017-04-24 02:48 | NUR ---
NO DISTRESS, NOTED. CONT ON BEAR MADDIE. T 97.2.
--- NOTE | 2017-04-24 04:30 | NUR ---
GT RESIDUAL IS 200 CC FEEDING OR FLUSH GIVEN AT THIS TIME.
--- NOTE | 2017-04-24 05:15 | NUR ---
AM CARE GIVEN,SPONGE BATH GIVEN,ORAL CARE GIVEN AND F/C CARE GIVEN. PT HAS LARGE LOOSE BM. URINE OUTPUT 600 CC YELLOW CLEAR COLOR.GOOD PERICARE GIVEN.
[2017-04-24 05:51] LABS: HEMATOCRIT 21.6 % (36-52); HEMOGLOBIN 7.2 g/dL (12.0-18.0); MEAN CORPUSCULAR HEMOGLOBIN 29 pg (27-31); MEAN CORPUSCULAR HGB CONC 33 g/dL (33-37); MEAN CORPUSCULAR VOLUME 87 fL (80-94); PLATELET COUNT (AUTO) 204 K/uL (140-450); RED BLOOD CELL COUNT(AUTO) 2.48 MIL/uL (4.20-6.10); RED CELL DISTRIBUTION WIDTH 13.9 % (11.6-13.7); WHITE BLOOD COUNT (AUTO) 7.4 K/uL (4.8-10.8)
[2017-04-24 06:23] LABS: ANION GAP 20.7 (8-16); CARBON DIOXIDE 20.6 mmol/L (21-32); CREATININE 2.1 mg/dL (0.7-1.3); POTASSIUM 5.3 mmol/L (3.5-5.1)
[2017-04-24 06:25] LABS: MAGNESIUM 3.2 mg/dL (1.8-2.4); PHOSPHORUS 6.6 mg/dL (2.5-4.9)
--- NOTE | 2017-04-24 06:30 | NUR ---
DR.CHASE SOLOMON MADE AWARE FEEDING WAS ON HOLD D/T RESIDUAL 200 CC.ALSO MADE AWARE PT HAX X1 BM AT THIS SHIFT. PER MD HE ALSO WILL FOLLOW UP PLAN WITH [employer] GENERAL MANAGER FOR TRACH INSERTION AND ELTAC EVAL.
[2017-04-24 06:41] LABS: PROTHROMBIN TIME 12.5 secs (10.8-13.4)
[2017-04-24 06:47] LABS: EOSINOPHILS % (MANUAL) 3 % (0-4); LYMPHOCYTES % (MANUAL) 7 % (20-46); MONOCYTES % (MANUAL) 1 % (5-12)
[2017-04-24] MEDS: ALBUTEROL SULFATE/IPRATROPIU 3 ML SOL IH SCH ×3 (06:47→19:59)
--- NOTE | 2017-04-24 06:47 | NUR ---
RECEIVD PT ON PRVC I TIME 0.85 RR 29 VT450 PEEP5 FIO2 28 ALARMS ARE ON AND FUNCTIONAL BMV HOB PTS ET TUBE SIZE 8.0 IS SECURE 21 CM BMV HOB BS RHONCI I\L SX HHN GIVEN I\L WITH 3 MG DUONEB NO DISTRESS NOTED PT IN HF ASLEEP VENT PLUGGED INTO RED OUTLET
--- NOTE | 2017-04-24 07:30 | NUR ---
RECEIVED REPORT FROM NIGHT NURSE. PT IS SEDATED. NORMAL SINUS RHYTHM ON MONITOR. ETT TO VENT WITH SETTINGS: AC 20, FIO2 28%, VT 450, PEEP 5. NO SOB AT THIS TIME. BREATH SOUNDS CLEAR. BREATHING IS EVEN AND UNLABORED. CENTRAL LINE TO LEFT IJ TLC ASYMPTOMATIC, PATENT AND INTACT, RECEIVING FENTANYL DRIP AT 50 MCG/HR AND LEVOPHED AT 25 MCG/MIN. VITAL SIGNS STABLE. FLACC 0. G-TUBE IN PLACE. GASTRIC RESIDUALS 140 ML AT THIS TIME. ABDOMEN DISTENDED. WEST CATH IN PLACE DRAINING URINE TO GRAVITY DRAINAGE BAG. SCROTAL EDEMA NOTED. SCDS IN PLACE FOR VTE PROPHYLAXIS. PITTING EDEMA +1 TO BILATERAL FEET. SKIN IS WARM TO TOUCH. ON BEAR HUGGER, TEMP 97.1 AT THIS TIME. HOB 30 DEGREES, BED IN LOW POSITION AND CALL LIGHT WITHIN REACH. WILL CONTINUE TO MONITOR.
[2017-04-24] MEDS: POTASSIUM CHLORIDE 20% 40 MEQ/15 ML UDC GT SCH ×2 (09:00→09:15)
[2017-04-24] MEDS: LACTOBACILLUS RHAMNOSUS GG 1 EACH CAP GT SCH (09:13)
[2017-04-24] MEDS: MIDODRINE 5 MG TAB PO SCH ×3 (09:13→18:10)
[2017-04-24] MEDS: VITAMIN D 400 IU TAB GT SCH ×2 (09:13→21:19)
[2017-04-24] MEDS: SENNA 8.6 MG TAB PO SCH ×3 (09:13→16:56)
[2017-04-24] MEDS: OXcarbazepine 150 MG TAB PO SCH ×2 (09:14→21:19)
[2017-04-24] MEDS: PHENYTOIN 100 MG/4 ML UDC GT SCH ×2 (09:14→21:19)
[2017-04-24] MEDS: CALCIUM CARBONATE 500 MG TAB GT SCH ×2 (09:14→21:19)
[2017-04-24] MEDS: POLYETHYLENE GLYCOL 17 GM/PKT GT SCH ×3 (09:14→16:56)
[2017-04-24] MEDS: MULTIVITAMIN/MINERALS 1 TAB GT SCH (09:14)
[2017-04-24] MEDS: levETIRAcetam 100 MG/ML ORASYR GT SCH ×2 (09:15→21:20)
[2017-04-24] MEDS: TIMOLOL OP 0.5% 5 ML BTL OP SCH ×2 (09:16→21:21)
[2017-04-24] MEDS: NYSTATIN POW 100 MU/GM 15 GM BTL TP SCH ×2 (09:17→21:21)
--- NOTE | 2017-04-24 09:50 | NUR ---
MEDICATIONS ADMINISTERED. PT TOLERATED WELL. WILL CONTINUE TO MONITOR.
--- NOTE | 2017-04-24 10:30 | NUR ---
PT HAS MODERATE AMOUNT OF PASTY BOWEL MOVEMENT. CLEANED AND REPOSITIONED PT. TOLERATED WELL. WILL CONTINUE TO MONITOR.
--- NOTE | 2017-04-24 10:53 | NUR ---
Social Service Note: I called Gerry from [facility] to obtain an update on referral, no answer, left message.
--- NOTE | 2017-04-24 12:00 | NUR ---
NO CHANGE OF CONDITION AT THIS TIME. PT IS SEDATED, RASS -3. VITAL SIGNS STABLE. FLACC 0. WILL CONTINUE TO MONITOR.
--- NOTE | 2017-04-24 12:03 | NUR ---
Social Service Note: I received a call back Gerry from [facility] . He requested clinical information to be fax to him # . I faxed info. He stated most likely they will not have an ICU bed available today, reported there's a possibility they might have tele or med/surg bed, I relayed this information to charge nurse Socorro. I requested for Gerry to contact ICU and inform nurse if they can accept patient or not.
[2017-04-24] MEDS ORDERED: PIPER/TAZO 3.375GM/D5W PREMIX 50 ML IV SCH (12:30)
--- NOTE | 2017-04-24 12:47 | NUR ---
GASTRIC RESIDUAL 180 ML. MEDICATIONS ADMINISTERED ORDERED. WILL CONTINUE TO MONITOR.
[2017-04-24] MEDS ORDERED: SODIUM POLYSTYRENE 15 GM/60 ML UDBTL PO SCH (13:40)
--- NOTE | 2017-04-24 14:55 | NUR ---
Social Service Note: Per Gerry from [facility] , patient has been clinically approved, stated he will contact ICU and inform RN if they can accept patient.
--- NOTE | 2017-04-24 17:00 | NUR ---
GASTRIC RESIDUAL [address] BLANCHARD MADE AWARE.
[2017-04-24] MEDS: NACL 0.9% 1,000 ML IV SCH (17:08)
[2017-04-24] MEDS: fentaNYL 1 MG in NACL 0.9% 80 ML IV PRN (17:39)
--- NOTE | 2017-04-24 18:10 | NUR ---
DR. PINEDO IN TO SEE AND EXAMINE PT. WILL FOLLOW UP ON ORDERS.
--- NOTE | 2017-04-24 19:30 | NUR ---
REPORT GIVEN TO NIGHT NURSE FOR CONTINUITY OF CARE. PT IS IN STABLE CONDITION.
--- NOTE | 2017-04-24 19:40 | NUR ---
RECEIVED REPORT FROM MORNING RN FOR CONTINUITY OF CARE. VS STABLE AT THIS TIME. PT AFEBRILE AND SEDATED. ETT TO VENT AC20, FIO2 28, TV 450, AND PEEP 5. LUNG SOUNDS COARSE. NO SIGNS OF DISTRESS NOTED. S1+S2 HEARD. PULSES PALPABLE. SINUS RHYTHM ON MONITOR. PT ON LEVOPHED AND FENTANYL DRIP. ABDOMEN ROUND AND DISTENDED. GTUBE IN PLACE AND NOTED WITH 320ML RESIDUAL. WEST CATHETER IN PLACE, DRAINING CLEAR AND YELLOW URINE. PT HAS SCROTAL SWELLING. LEFT IJ TRIPLE LUMEN CATH IN PLACE. PATENT AND ASYMPTOMATIC. HOB AT 30 DEGREES. CALL LIGHT WITHIN REACH, AND ALL SAFETY PRECAUTIONS ARE IN PLACE. WILL CONTINUE TO MONITOR PT.
--- NOTE | 2017-04-24 20:45 | NUR ---
DR. OSORIO TO SEE PT. INFORMED DR. OSORIO THAT PT IS NOT TOLERATING FEEDING AND HAS 320ML RESIDUAL. WILL FOLLOW-UP WITH ANY NEW ORDER. WILL CONTINUE TO MONITOR PT.
[2017-04-24] MEDS: SIMETHICONE 40 MG/0.6 ML PO SCH (21:00)
--- NOTE | 2017-04-24 21:30 | NUR ---
SCHEDULED MEDICATIONS ADMINISTERED. PT TOLERATED WELL. NO CHANGE IN CONDITION AT THIS TIME. VS STABLE. WILL CONTINUE TO MONITOR.
[2017-04-25] VITALS (106 sets, daily range): BP systolic 72–134; BP diastolic 25–96
--- NOTE | 2017-04-25 00:13 | NUR ---
ORAL CARE PROVIDED. VS STABLE. NO CHANGE IN CONDITION. WILL CONTINUE TO TITRATE LEVOPHED DOWN. PT TEMPERATURE IS WNL. WILL CONTINUE TO MONITOR.
[2017-04-25] MEDS: NOREPINEPHRINE 8 MG in DEXTROSE 5% 250 ML IV PRN ×2 (02:17→12:45)
--- NOTE | 2017-04-25 03:15 | NUR ---
PM CARE PROVIDED TO PT. WEST CATHETER CARE PROVIDED. PT HAD NO BM. GOWN AND LINENS CHANGED. PT SCROTUM STILL SWOLLEN. PT HAS URINE OUTPUT. NO SIGNS OF DISTRESS NOTED. VS STABLE. NO CHANGE IN CONDITION AT THIS TIME. PT RESIDUAL 250ML. FEEDING NOT RESUMED. WILL CONTINUE TO MONITOR PT CONDITION.
[2017-04-25] MEDS: PIPER/TAZO 3.375GM/D5W PREMIX 50 ML IV SCH ×4 (05:37→23:06)
[2017-04-25 06:12] LABS: ANION GAP 19.5 (8-16); CREATININE 1.9 mg/dL (0.7-1.3); POTASSIUM 4.5 mmol/L (3.5-5.1)
[2017-04-25 06:13] LABS: HEMATOCRIT 21.3 % (36-52); HEMOGLOBIN 7.2 g/dL (12.0-18.0); MEAN CORPUSCULAR HEMOGLOBIN 29 pg (27-31); MEAN CORPUSCULAR HGB CONC 34 g/dL (33-37); MEAN CORPUSCULAR VOLUME 87 fL (80-94); PLATELET COUNT (AUTO) 215 K/uL (140-450); RED BLOOD CELL COUNT(AUTO) 2.45 MIL/uL (4.20-6.10); RED CELL DISTRIBUTION WIDTH 14.1 % (11.6-13.7); WHITE BLOOD COUNT (AUTO) 5.8 K/uL (4.8-10.8)
[2017-04-25 06:27] LABS: MAGNESIUM 2.9 mg/dL (1.8-2.4); PHOSPHORUS 5.4 mg/dL (2.5-4.9)
--- NOTE | 2017-04-25 07:10 | NUR ---
RECEIVED REPORT FROM COMMERCIAL MAINTENANCE TECHNICIAN RNLICO FOR CONTINUITY OF CARE. PATIENT'S VS STABLE AT THIS TIME. PATIENT IS SEDATED. ETT TO VENT AC 20, FIO2 28, TV 450, AND PEEP 5. BILATERAL LUNG SOUNDS ARE DIMINISHED. S1 AND S2 HEART SOUNDS HEARD. PATIENT HAS A G TUBE IN PLACE, 200 ML RESIDUAL, PATIENT'S ABDOMEN IS DISTENDED AND ROUND. WEST IN PLACE TO CLEAR YELLOW URINE, PATIENT HAS SCROTAL SWELLING. SKIN IS WARM AND DRY, PATIENT HAS GENERALIZED EDEMA. PATIENT HAS A LEFT IJ TRIPLE LUMEN CENTRAL LINE IN PLACE, PATENT AND INTACT. NO SIGNS OF DISTRESS AT THIS TIME, CALL LIGHT WITHIN REACH, WILL CONTINUE TO MONITOR.
[2017-04-25] MEDS: ALBUTEROL SULFATE/IPRATROPIU 3 ML SOL IH SCH ×3 (07:13→19:23)
--- NOTE | 2017-04-25 07:13 | NUR ---
REC'D PT ON CARESCAPE VENT SETTINGS AC\PRVC 20 VT 450 PEEP 5 FIO2 28% TINSP.0.85 ALARMS ON AND FUNCTIONING PROPERLY, AMBU BAG AT SIDE OF VENT AND VENT IS PLUGGED INTO RED OUTLET I\L TX GIVEN WITH DUONEB 3ML WITH NO ADVERSE REACTION POST TX, B\S ARE CLEAR BILATERALLY SXN PT SMALL AMT OF BLOOD TINT SECRETIONS, PT IS ORALLY INTUBATED WITH 8.0 ET TUBE SECURED WITH ANCHOR FAST AT 21 CM AT MIDLINE OF MOUTH AND SKIN INTEGRITY PT IS RESTING
[2017-04-25 07:14] LABS: PHENYTOIN (DILANTIN) 21.6 ug/ml (10.0-20.0)
[2017-04-25 07:41] LABS: BASOPHILS % (MANUAL) 0 % (0-2); EOSINOPHILS % (MANUAL) 2 % (0-4); LYMPHOCYTES % (MANUAL) 15 % (20-46); MONOCYTES % (MANUAL) 5 % (5-12)
--- NOTE | 2017-04-25 08:45 | NUR ---
VAP ORAL CARE PROVIDED, TURNED AND REPOSITIONED PATIENT. NO SIGNS OF DISTRESS NOTED. CALL LIGHT WITHIN REACH. WILL CONTINUE TO MONITOR
[2017-04-25] MEDS: POLYETHYLENE GLYCOL 17 GM/PKT GT SCH ×3 (08:46→17:18)
[2017-04-25] MEDS: OXcarbazepine 150 MG TAB PO SCH ×2 (08:47→20:55)
[2017-04-25] MEDS: MULTIVITAMIN/MINERALS 1 TAB GT SCH (08:48)
[2017-04-25] MEDS: LACTOBACILLUS RHAMNOSUS GG 1 EACH CAP GT SCH (08:48)
[2017-04-25] MEDS: SENNA 8.6 MG TAB PO SCH ×3 (08:48→17:17)
[2017-04-25] MEDS: VITAMIN D 400 IU TAB GT SCH ×2 (08:49→20:56)
[2017-04-25] MEDS: CALCIUM CARBONATE 500 MG TAB GT SCH ×2 (08:49→20:56)
[2017-04-25] MEDS: NYSTATIN POW 100 MU/GM 15 GM BTL TP SCH ×2 (09:00→20:55)
[2017-04-25] MEDS: SIMETHICONE 40 MG/0.6 ML PO SCH ×4 (09:00→20:57)
[2017-04-25] MEDS: TIMOLOL OP 0.5% 5 ML BTL OP SCH ×2 (09:00→20:56)
[2017-04-25] MEDS: MIDODRINE 5 MG TAB PO SCH ×3 (10:00→18:16)
[2017-04-25] MEDS: levETIRAcetam 100 MG/ML ORASYR GT SCH ×2 (10:00→20:56)
--- NOTE | 2017-04-25 10:21 | NUR ---
SPOKE WITH DR. SHETTY AT 1015, DISCUSSED WITH MD REGARDING PATIENT'S GT RESIDUAL 200 MLS AT 0800, DR. SHETTY STATED TO JUST HOLD THE GT FEEDING (BOLUS). DR. SHETTY INFORMED ALSO THAT PATIENT'S IVF IS NS AT 50 ML/HR, DR. SHETTY SAID 'IT''S OK".
[2017-04-25] MEDS: BISACODYL 10 MG SUPP RC PRN (12:45)
[2017-04-25] MEDS ORDERED: FLUCONAZOLE 200 MG/NS PREMIX 100 ML IV SCH (13:00)
--- NOTE | 2017-04-25 13:10 | NUR ---
VAP ORAL CARE PROVIDED. NO SIGNS OF DISTRESS NOTED. WILL CONTINUE TO MONITOR
--- NOTE | 2017-04-25 13:19 | NUR ---
CONTINUE TITRATING FENTANYL DRIP AND LEVOPHED DRIP, GT RESIDUAL AT 1200 WAS 250 MLS. GT BOLUS FEEDING HELD, ABDOMEN DISTENDED, DULCOLAX SUPPOSITIRY AND FLEETS ENEMA GIVEN, NO BM UP TO THIS TIME.
--- NOTE | 2017-04-25 13:35 | NUR ---
VENT CHECK SMALL AMT OF BLOOD TINT SECRETIONS, AIRWAY IS PATENT AND PT IS SLEEPING WITH NO SIGNS OF DISTRESS NOTED AT THIS TIME
[2017-04-25] MEDS: NACL 0.9% 1,000 ML IV SCH ×2 (13:43→23:11)
--- NOTE | 2017-04-25 15:07 | NUR ---
VENT CHECK, SXN PT SMALL AMT OF BLOOD TINT SECRETIONS, AIRWAY IS PATENT AND PT IS SLEEPING
--- NOTE | 2017-04-25 16:29 | NUR ---
GT RESIDUAL AT 1600 WAS 200 MLS, PATIENT WITH NO BOWEL MOVEMENT YET UP TO THIS TIME, CONTINUE TITRATING DOWN LEVOPHED DRIP AND FENTANYL DRIP, ORAL CARE WITH VAP KIT, TURNED AND REPOSITIONED, FLACC 0.
--- NOTE | 2017-04-25 17:16 | NUR ---
VENT CHECK, NO SXN NEEDED PT IS SLEEPING AIRWAY IS PATENT
[2017-04-25] MEDS: CALCIUM ACETATE 667 MG TAB GT SCH (17:18)
--- NOTE | 2017-04-25 18:13 | NUR ---
PM CARE DONE, FENTANYL DRIP AT 30 MCG/HR , LEVOPHED DRIP AT 6 MCG/MIN, TURNED AND REPOSITIONED, FLACC 0, NO RESPIRATORY DISTRESS.
--- NOTE | 2017-04-25 19:15 | NUR ---
RECEIVED REPORT FORM BETHANYRN AT BEDSIDE, PT IS LETHARGIC, NONVERBAL, NOT ABLE TO FOLLOW COMMANDS, LEFT FACE HEMANGIOMA NOTED, CENTRAL LINE TO LEFT IJ, TLC, PATENT, RUNNING LEVOPHED AT 6MCG/MIN, FANTAYL AT 30MCG/HR, AND NS AT 50ML/HR. ETT TO VENT WITH PRVC SETTING, FIO2 28, TV 450, R 20, PEEP 5, RHONCHI LUNG SOUNDS, SR ON ADULT LIVE IN CAREGIVER, EXTENDED ABDOMEN NOTED WITH HYPOACTIVE BOWEL SOUNDS, GT IN PLACE, WITH 150ML RESIDUALS, WEST CATHETER IN PLACE WITH CLEAR YELLOW URINE NOTED, RIGID TO ALL EXTREMITIES, SKIN IS WARM AND DRY TO TOUCH, OPEN WOUND PRESSURE (SEE WOUND ASSESSMENT), VSS, FLACC 0, HOB ELEVATED 30 DEGREES, SAFETY PRECAUTION AND SEIZURE PRECAUTION IN PLACE, WILL CONTINUE TO MONITOR.
--- NOTE | 2017-04-25 19:31 | NUR ---
RECEIVED PT STABLE ON VENT SUPPORT AT DOCUMENTED SETTINGS, SUCTIONED SMALL AMOUNTS OF THICK YELLOW GREEN BLOOD TINGED SECRETIONS, HHN TX GIVEN, TOLERATED WELL, NO RESP DISTRESS OR SOB NOTED AT THIS TIME, 8.0 ETT SECURED AT 21 CM AT THE LIP, ALARMS SET AND AUDIBLE, AMBU BAG AT BEDSIDE, VENT PLUGGED INTO RED OUTLET, WILL CONT TO MONITOR.
--- NOTE | 2017-04-25 20:14 | NUR ---
PT IS STILL LETHARGIC, VSS, ORAL CARE GIVEN, POSITION CHANGED FOR OFF LOAD PRESSURE, BOLUS FEEDING GIVEN. Addendum: 04/25/17 at 2017 by Parth Garzon RN BOLUS NOT GIVEN DUE TO RESIDUALS 150ML AT THIS TIME, WILL RECHECK AGAIN.
--- NOTE | 2017-04-25 22:00 | NUR ---
NO CHANGE OF CONDITION AT THIS TIME, VSS, POSITION CHANGED FOR OFF LOAD PRESSURE.
[2017-04-25] MEDS: FAMOTIDINE 20 MG/2 ML VIAL IV SCH (23:03)
[2017-04-26] VITALS (105 sets, daily range): BP systolic 60–133; BP diastolic 16–80
--- NOTE | 2017-04-26 | NUR ---
NO CHANGE OF CONDITION AT THIS TIME, ORAL CARE PROVIDED, POSITION CHANGED FOR OFF LOAD PRESSURE. VSS.
--- NOTE | 2017-04-26 00:15 | NUR ---
RESIDUALS 150ML, CONTINUE TO HOLD TUBE FEEDING
--- NOTE | 2017-04-26 02:00 | NUR ---
NO S/S OF DISTRESS, VSS, POSITION CHANGED FOR OFF LOAD PRESSURE.
--- NOTE | 2017-04-26 04:00 | NUR ---
AM CARE AND ORAL CARE PROVIDED, F/C CARE PERFORMED, VSS, SUCTION PROVIDED, MOUTH BLEEDING NOTED, MD AWARE. POSITION CHANGED FOR OFF LOAD PRESSURE. Addendum: 04/26/17 at 0628 by Parth Garzon RN RESIDUALS CHECKED WITH 120ML, STILL HOLD THE TUBE FEEDING AT THIS TIME ORDERED.
--- NOTE | 2017-04-26 06:00 | NUR ---
NO CHANGE OF CONDITION, VSS, POSITION CHANGED FOR OFF LOAD PRESSURE.
[2017-04-26] MEDS: PIPER/TAZO 3.375GM/D5W PREMIX 50 ML IV SCH ×2 (06:06→12:19)
[2017-04-26] MEDS: MIDODRINE 5 MG TAB PO SCH ×3 (06:06→18:25)
[2017-04-26 06:38] LABS: CREATININE 1.9 mg/dL (0.7-1.3)
[2017-04-26 06:43] LABS: MAGNESIUM 2.9 mg/dL (1.8-2.4); PHOSPHORUS 6.1 mg/dL (2.5-4.9)
[2017-04-26] MEDS: ALBUTEROL SULFATE/IPRATROPIU 3 ML SOL IH SCH ×3 (07:07→19:22)
--- NOTE | 2017-04-26 07:10 | NUR ---
RECEIVED PT ON CARESCAPE ON PRVC ITIME 0.85 RR 20 VT 450 PEEP 5 FIO2 28 ALARMS ARE ON AND AUDIBLE PTS ET TUBE IS SECURE 21CM SIZE 8.0 BS RHONCI SX PT IN HF QUIET HHN GIVEN I\L WITH 3 MG DUONEB NO APPARENT DISTRESS NOTED VENT PLUGGED INTO RED OUTLET
--- NOTE | 2017-04-26 07:29 | NUR ---
REPORT GIVEN TO CRISTO LIZ FOR CONTINUE OF CARE, PT IS IN STABLE CONDITION AT THIS TIME.
--- NOTE | 2017-04-26 07:30 | NUR ---
RECEIVED PATIENT FROM [facility] RN FOR CONTINUITY OF CARE. PATIENT ON ETT TO VENT FIO2 28%, RATE 20 TV 450 AND PEEP 5. PATIENT IS APHASIC, UNABLE TO FOLLOW SIMPLE COMMANDS. SKIN WARM TO TOUCH WNL, TOENAILS WNL, NO EDEMA, WITH FINE HAIR GROWTH AND +2 BILATERAL PEDAL PULSES. FC IN PLACE AND PATENT TO YELLOW URINE IN MODERATE AMOUNT. LUQ G TUBE PATENT AND INTACT, CLAMPED AT THIS TIME. RESIDUAL OF 180 ML. LEFT IJ CENTRAL LINE PATENT AND INTACT TO LEVOPHED AT 6 MCG/MIN, FENTANYL AT 30 MCG/H AND NS AT 50 ML/H. BLUE PORT NOT FLUSHING AND NO BLOOD RETURN. CALL LIGHT WITHIN REACH. SAFETY MEASURES IN PLACE. WILL CONTINUE TO MONITOR PATIENT.
[2017-04-26 08:00] LABS: HEMATOCRIT 21.1 % (36-52); MEAN CORPUSCULAR HEMOGLOBIN 29 pg (27-31); MEAN CORPUSCULAR HGB CONC 33 g/dL (33-37); MEAN CORPUSCULAR VOLUME 87 fL (80-94); PLATELET COUNT (AUTO) 217 K/uL (140-450); RED BLOOD CELL COUNT(AUTO) 2.42 MIL/uL (4.20-6.10); RED CELL DISTRIBUTION WIDTH 14.1 % (11.6-13.7); WHITE BLOOD COUNT (AUTO) 3.2 K/uL (4.8-10.8)
--- NOTE | 2017-04-26 08:00 | NUR ---
DR SHETTY AND GROUP ROUNDING ON THE PATIENT. WILL FOLLOW UP WITH ORDERS.
[2017-04-26 08:16] LABS: EOSINOPHILS % (MANUAL) 3 % (0-4); LYMPHOCYTES % (MANUAL) 41 % (20-46); MONOCYTES % (MANUAL) 10 % (5-12)
[2017-04-26] MEDS: CALCIUM ACETATE 667 MG TAB GT SCH ×3 (08:43→17:16)
[2017-04-26] MEDS: LACTOBACILLUS RHAMNOSUS GG 1 EACH CAP GT SCH (08:43)
[2017-04-26] MEDS: VITAMIN D 400 IU TAB GT SCH ×2 (08:43→21:08)
[2017-04-26] MEDS: CALCIUM CARBONATE 500 MG TAB GT SCH ×2 (08:44→21:07)
[2017-04-26] MEDS: levETIRAcetam 100 MG/ML ORASYR GT SCH ×2 (08:44→21:07)
[2017-04-26] MEDS: POLYETHYLENE GLYCOL 17 GM/PKT GT SCH ×3 (08:44→17:16)
[2017-04-26] MEDS ORDERED: MIDAZOLAM MDV 50 MG in NACL 0.9% 40 ML IV PRN (08:45)
[2017-04-26] MEDS: TIMOLOL OP 0.5% 5 ML BTL OP SCH ×2 (08:46→21:09)
[2017-04-26] MEDS: MULTIVITAMIN/MINERALS 1 TAB GT SCH (08:46)
[2017-04-26] MEDS: NYSTATIN POW 100 MU/GM 15 GM BTL TP SCH ×2 (08:47→21:09)
[2017-04-26] MEDS: SENNA 8.6 MG TAB PO SCH ×3 (08:47→17:17)
[2017-04-26] MEDS: OXcarbazepine 150 MG TAB PO SCH ×2 (08:48→21:08)
[2017-04-26] MEDS: SIMETHICONE 40 MG/0.6 ML PO SCH ×4 (08:50→21:10)
[2017-04-26] MEDS ORDERED: ERYTHROMYCIN 250 MG TABEC PO SCH (09:00)
[2017-04-26] MEDS: ERYTHROMYCIN ETHYLSUCCINATE SUSP 200 MG/5 ML UDC PO SCH ×3 (09:18→17:17)
[2017-04-26] MEDS: MIDAZOLAM MDV 100 MG in NACL 0.9% 80 ML IV PRN (10:59)
--- NOTE | 2017-04-26 11:22 | NUR ---
WOUND NURSE AT BEDSIDE REEVALUATING PATIENT.
[2017-04-26 13:52] LABS: PHENYTOIN (DILANTIN) 20.7 ug/ml (10.0-20.0)
--- NOTE | 2017-04-26 14:04 | NUR ---
WOUND CARE RE-EVALUATION NOTE: SKIN ASSESSMENT DONE ON THIS 56 Y/O MALE PATIENT FROM [facility] TO [facility], WITH INITIAL DIAGNOSIS OF SEIZURE ACTIVITY. PAST MEDICAL HISTORY INCLUDE STURGE QUEZADA. ALL ABOVE INFORMATION WAS OBTAINED FROM THE ADMISSION H&P. LABS ARE WBC 3.2, H/H 7.0/21.1 GLUCOSE 96 AND ALBUMIN 2.7. PATIENT IS SEDATED SKIN WARM TO TOUCH WNL, TOENAILS ARE THIN AND SHORT, BILATERAL FEET +1 EDEMA, NO HAIR GROWTH , BILATERAL PEDAL PULSES PRESENT. LOWER EXTREMITIES CONTRACTURE,NEEDS MAX ASSISTANCE IN TURNING. PLAN OF CARE DISCUSSED WITH PRIMARY RN. INTEGUMENTARY: ORAL MUCOUS MEMBRANAE A SMALL PIECE OF TISSUE ATTACH TO LOWER PORTION OF TONGUE. OTHER ORAL MEMBRANAE INTACT, DR. RIVERA NOTIFY TIP OF TONGUE PURPLE COLOR WITH SMALL AMOUNT OF BLEEDING NOTICE, POSSIBLE FROM BITTING. DR. RIVERA NOTIFY. ET TUBE IN PLACE AND SECURED. LEFT UPPER ARM ABRASION 0.5X0.5X0.1 CM DRY AND CLEAN LUQ GT MINAL-STOMA SKIN CLEAN AND INTACT SCROTUM EDEMA WITH THIN SKIN INTACT. RECOMMENDATIONS: -EDEMA TO SCROTUM, US TO FOLLOW -LEFT UPPER ARM ABRASION, CLEANSE WITH NS, COVER WITH ISLAND DRESSING QD AND PRN IF SOILING. KEEP AREA DRY AND CLEAN -KEEP R/L KNEES SEPARATE BY POSITION WITH PILLOWS TO AVOID FRICTION -TURN AND REPOSITION PATIENT Q2H -ASSESS AND MONITOR SKIN CONDITION DURING POSITION CHANGE, PLEASE PAY ATTENTION HEELS AND KNEES -OFFLOAD BILATERAL HEELS BY PLACING PILLOWS UNDER CALVES AT ALL TIMES, UNLESS OTHERWISE CONTRAINDICATED -KEEP SKIN CLEAN AND DRY AT ALL TIMES. -PRESSURE REDISTRIBUTION SURFACE THERAPY. RECOMMENDATIONS DISCUSSED WITH PRIMARY RN AND DR. RIVERA WILL FOLLOW UP PATIENT PRN. PLEASE CONTACT WOUND CARE NURSE FOR ANY QUESTIONS AND CHANGES IN WOUND CONDITION.
--- NOTE | 2017-04-26 14:30 | NUR ---
I contacted patient's [facility] briefcase sewer Larissa Lagos to discuss patient's status/condition. Mrs. Larissa Lagos stated that she is aware of Patient's conditions. She stated that [facility] have been in contact with her and keeping her posted on the recommendations for patient's care to possibly be transfer to a SNF Possibly ([facility]). I informed Mrs. Lagos that rn case management is working on acceptance to SNF however; Patient needs to be stable and ready to be transfer first. Mrs. Lagos agreed and stated that she would like a courtesy call to inform her of where or what SNF will he be transfer when he does or any other patient's change of status. Mrs. Lagos stated that patient is not Conserved and has no family to be contacted at this time; and in those cases MD. Will have to make any medical decisions for the best interest of the patient. I thank her for the information and informed that I will document our conversations as well; noting to give her a call if any changes with patient's conditions occurs and ended the call.
[2017-04-26] MEDS: NOREPINEPHRINE 8 MG in DEXTROSE 5% 250 ML IV PRN (14:33)
[2017-04-26] MEDS: FLUCONAZOLE 200 MG/NS PREMIX 100 ML IV SCH (14:35)
[2017-04-26] MEDS ORDERED: VANCOMYCIN PER PHARMACY MC PRN (15:05)
[2017-04-26] MEDS: CEFEPIME 1,000 MG in DEXTROSE 5% 50 ML IV SCH (16:03)
[2017-04-26] MEDS ORDERED: VANCOMYCIN 1GM/DEXT 5% PREMIX 200 ML IV SCH (17:00)
--- NOTE | 2017-04-26 19:21 | NUR ---
REPORT GIVEN TO NIGHT RN FOR CONTINUITY OF CARE. PATIENT IN STABLE CONDITION.
--- NOTE | 2017-04-26 19:22 | NUR ---
RECEIVED REPORT FORM CRISTO FONTANEZ AT BEDSIDE, PT IS LETHARGIC, NONVERBAL, NOT ABLE TO FOLLOW COMMANDS, LEFT FACE HEMANGIOMA NOTED, CENTRAL LINE TO LEFT IJ, TLC, PATENT, RUNNING LEVOPHED AT 6MCG/MIN, FANTAYL AT 10MCG/HR, VERSED AT 1MG/HR, AND NS AT 125ML/HR. ETT TO VENT WITH PRVC SETTING, FIO2 28, TV 450, R 20, PEEP 5, RHONCHI LUNG SOUNDS, SR ON MAIL ORDER CLERK, EXTENDED ABDOMEN NOTED WITH HYPOACTIVE BOWEL SOUNDS, GT IN PLACE, WITH 30ML RESIDUALS, WILL RESUME TUBE FEEDING WITH FIBERSOURCE 1.2 AT 150ML Q4HR. WEST CATHETER IN PLACE WITH CLEAR YELLOW URINE NOTED, RIGID TO ALL EXTREMITIES, SKIN IS WARM AND DRY TO TOUCH, OPEN WOUND PRESSURE (SEE WOUND ASSESSMENT), VSS, FLACC 0, HOB ELEVATED 30 DEGREES, SAFETY PRECAUTION AND SEIZURE PRECAUTION IN PLACE, WILL CONTINUE TO MONITOR. Addendum: 04/26/17 at 2023 by Parth Garzon RN PT IS SEDATED WITH VERSED AND FENTANYL, RASS -3
[2017-04-26] MEDS: NACL 0.9% 1,000 ML IV SCH (19:30)
[2017-04-26 20:03] LABS: BILIRUBIN,URINE NEGATIVE (NEGATIVE); BLOOD, URINE 1+ (NEGATIVE); COLOR,URINE YELLOW (YELLOW); LEUKOCYTE ESTERASE ,URINE TRACE (NEGATIVE); NITRITE, URINE NEGATIVE (NEGATIVE); UGLUCOSE NEGATIVE (NEGATIVE)
--- NOTE | 2017-04-26 20:10 | NUR ---
BOLUS FEEDING GIVEN, ORAL CARE GIVEN, POSITION CHANGED FOR OFF LOAD PRESSURE.
[2017-04-26 20:11] LABS: APPEARANCE,URINE HAZY (CLEAR)
--- NOTE | 2017-04-26 22:00 | NUR ---
NO S/S OF DISTRESS, PT IS SEDATED, RASS -4, FLACC 0, VSS, POSITION CHANGED FOR OFF LOAD PRESSURE.
[2017-04-26] MEDS: FAMOTIDINE 20 MG/2 ML VIAL IV SCH (23:08)
[2017-04-27] VITALS (102 sets, daily range): BP systolic 77–136; BP diastolic 35–87
--- NOTE | 2017-04-27 | NUR ---
NO CHANGE OF CONDITION AT THIS TIME, ORAL CARE PROVIDED, POSITION CHANGED FOR OFF LOAD PRESSURE. VSS.
--- NOTE | 2017-04-27 02:00 | NUR ---
PT IS STILL SEDATED, NO S/S OF DISTRESS, VSS, POSITION CHANGED FOR OFF LOAD PRESSURE.
[2017-04-27] MEDS: NACL 0.9% 1,000 ML IV SCH ×5 (03:59→23:53)
--- NOTE | 2017-04-27 04:00 | NUR ---
AM CARE AND F/C CARE PROVIDED, ORAL CARE PERFORMED, POSITION CHANGED FOR OFF LOAD PRESSURE.
[2017-04-27 05:03] LABS: MEAN CORPUSCULAR HEMOGLOBIN 29 pg (27-31); MEAN CORPUSCULAR HGB CONC 33 g/dL (33-37); MEAN CORPUSCULAR VOLUME 86 fL (80-94); PLATELET COUNT (AUTO) 263 K/uL (140-450); RED BLOOD CELL COUNT(AUTO) 2.27 MIL/uL (4.20-6.10); RED CELL DISTRIBUTION WIDTH 14.2 % (11.6-13.7); WHITE BLOOD COUNT (AUTO) 4.4 K/uL (4.8-10.8)
[2017-04-27 05:39] LABS: CREATININE 2.2 mg/dL (0.7-1.3)
[2017-04-27 05:42] LABS: PHOSPHORUS 6.7 mg/dL (2.5-4.9)
[2017-04-27 06:00] LABS: CARBON DIOXIDE 19.6 mmol/L (21-32); POTASSIUM 3.6 mmol/L (3.5-5.1)
--- NOTE | 2017-04-27 06:00 | NUR ---
NO CHANGE OF CONDITION AT THIS TIME, VSS, POSITION CHANGED FOR OFF LOAD PRESSURE.
[2017-04-27] MEDS: MIDODRINE 5 MG TAB PO SCH ×3 (06:12→20:22)
[2017-04-27 06:40] LABS: PHENYTOIN (DILANTIN) 20.4 ug/ml (10.0-20.0)
[2017-04-27 06:49] LABS: HEMATOCRIT 19.6 % (36-52); HEMOGLOBIN 6.6 g/dL (12.0-18.0)
[2017-04-27 06:51] LABS: EOSINOPHILS % (MANUAL) 4 % (0-4); LYMPHOCYTES % (MANUAL) 38 % (20-46); MONOCYTES % (MANUAL) 11 % (5-12)
[2017-04-27] MEDS: ALBUTEROL SULFATE/IPRATROPIU 3 ML SOL IH SCH ×3 (07:22→18:38)
--- NOTE | 2017-04-27 07:22 | NUR ---
REC'D PT ON CARESCAPE VENT SETTINGS AC\PRVC 20 VT 450 PEEP 5 FIO2 28% TINSP 0.85 ALARMS ON AND FUNCTIONING PROPERLY AMBU BAG IS AT SIDE OF VENT AND VENT IS PLUGGED INTO RED OUTLE, I\L TX GIVEN WITH DUONEB 3ML WITH NO ADVERSE REACTION POST TX B\S ARE RHONCHI BILATERALLY, SNX PT SMALL AMT OF WHITE SECRETIONS, PT IS ORALLY INTUBATED WITH 8.0 ET TUBE SECURED WITH ANCHOR FAST AT 22 CM AT MIDLINE AND SKIN INTEGRITY IS INTACT PT IS SLEEPING AT 0757 ABG DRAWN ON RR WITH OUT INCIDENT AND AT 0818 DR. GRIJALVA CALLED AND GIVEN RESULTS WITH NO CHANGEDS MADE TO VENT
--- NOTE | 2017-04-27 07:30 | NUR ---
REPORT GIVEN TO AM NURSE AT BEDSIDE FOR CONTINUE OF CARE, PT IS IN STABLE CONDITION AT THIS TIME.
[2017-04-27] MEDS: CALCIUM ACETATE 667 MG TAB GT SCH ×3 (08:58→17:33)
[2017-04-27] MEDS: LACTOBACILLUS RHAMNOSUS GG 1 EACH CAP GT SCH (08:59)
[2017-04-27] MEDS: VITAMIN D 400 IU TAB GT SCH ×2 (09:00→20:23)
[2017-04-27] MEDS: levETIRAcetam 100 MG/ML ORASYR GT SCH ×2 (09:02→20:24)
[2017-04-27] MEDS: POLYETHYLENE GLYCOL 17 GM/PKT GT SCH ×2 (09:03→13:00)
[2017-04-27] MEDS: CALCIUM CARBONATE 500 MG TAB GT SCH ×2 (09:04→21:35)
[2017-04-27] MEDS: MULTIVITAMIN/MINERALS 1 TAB GT SCH (09:04)
[2017-04-27] MEDS: TIMOLOL OP 0.5% 5 ML BTL OP SCH ×2 (09:07→20:27)
[2017-04-27] MEDS: SIMETHICONE 40 MG/0.6 ML PO SCH ×2 (09:09→13:00)
[2017-04-27] MEDS: OXcarbazepine 150 MG TAB PO SCH ×2 (09:10→20:28)
[2017-04-27] MEDS: SENNA 8.6 MG TAB PO SCH ×2 (09:10→13:00)
[2017-04-27] MEDS: NYSTATIN POW 100 MU/GM 15 GM BTL TP SCH ×2 (09:12→20:27)
--- NOTE | 2017-04-27 09:51 | NUR ---
VENT CHECK, AIRWAY IS PATENT AND PT SLEEPING
--- NOTE | 2017-04-27 11:35 | NUR ---
VENT CHECK PT RESTING
--- NOTE | 2017-04-27 11:52 | NUR ---
RECEIVED A CALL FROM MILDRED CROSS FROM [place]. SHE SAID SHE SPOKE WITH SAYDA FROM THE [facility]. MILDRED SAID SHE NEEDS UPDATES ON CLINICALS FOR THIS PATIENT, WHICH I FAXED TO HER AT [phone]. SHE WILL BE LOOKING AT AN ICU BED.
--- NOTE | 2017-04-27 13:21 | NUR ---
vent check, sxn pt small amt of white secretions airway is patent and pt is sleeping with no signs of distress noted at this time no hhn given
[2017-04-27] MEDS ORDERED: MIDAZOLAM 2 MG/2 ML VIAL ONE (13:29)
[2017-04-27] MEDS ORDERED: fentaNYL 0.05 MG/ML VIAL ONE (13:29)
[2017-04-27] MEDS ORDERED: diphenhydrAMINE 50 MG/ML VIAL ONE (13:30)
[2017-04-27] MEDS: NOREPINEPHRINE 8 MG in DEXTROSE 5% 250 ML IV PRN (13:32)
[2017-04-27] MEDS: FLUCONAZOLE 200 MG/NS PREMIX 100 ML IV SCH (13:36)
[2017-04-27] MEDS ORDERED: MIDAZOLAM 2 MG/2 ML VIAL IVP SCH (15:10)
[2017-04-27] MEDS: MIDAZOLAM MDV 100 MG in NACL 0.9% 80 ML IV PRN (15:29)
--- NOTE | 2017-04-27 15:32 | NUR ---
SPOKE WITH DR. GRIJALVA AND SHE SAID THE PATIENT COULD GO TO [place] WHEN BED AVAILABLE. I CALLED MILDRED CROSS AND INFORMED HER. SHE SAID THAT THE PATIENT NEEDED TO GET THE JT FIRST AND THE PACKED CELLS PRIOR TO GOING TO [place]. I CALLED HER, AND SHE SAID AT PRESENT SHE HAS NO ICU BEDS, BUT SHE TOOK THE PHONE NUMBER TO ICU TO CALL IF A BED BECOMES AVAILABLE. I WILL LET [employer] NURSE KNOW.
[2017-04-27] MEDS ORDERED: FUROSEMIDE 40 MG/5 ML ORAL SOL UDC PO PRN (16:00)
[2017-04-27] MEDS: CEFEPIME 1,000 MG in DEXTROSE 5% 50 ML IV SCH (16:18)
[2017-04-27] MEDS: diphenhydrAMINE 12.5 MG/5 ML UDC PO SCH ×2 (16:19→20:22)
[2017-04-27] MEDS: ACETAMINOPHEN 325 MG TAB PO SCH ×2 (16:20→20:23)
[2017-04-27] MEDS: METOCLOPRAMIDE 10 MG/10 ML SYRP UDC GT SCH (16:21)
--- NOTE | 2017-04-27 16:53 | NUR ---
VENT CHECK SXN PT SMALL AMT OF BLOOD TINT SECRETIONS PT IS SLEEPING WITH NO SIGNS OF DISTRESS NOTED
[2017-04-27] MEDS ORDERED: VANCOMYCIN 750 MG in NACL 0.9% 250 ML IV SCH (18:00)
--- NOTE | 2017-04-27 19:30 | NUR ---
RECEIVED REPORT FROM CRISTO YANG. INITIAL ASSESSMENT COMPLETED. PT IS ON ETT TO VENT FIO2 28% TV 450 AC 20 PEEP 5. ATTACHED TO [employer] CONSULTANT, PULSE OXIMETER. IV ACCESS ON LEFT IJ TLC, PATENT, INTACT. ON VERSED DRIP, RASS -3 AND LEVOPHED DRIP. GJ TUBE IN PLACE, GRAVITY TO DRAIN. SCROTAL EDEMA NOTED. WEST CATH IN PLACE. SCDS IN PLACE. BED IN LOW POSITION, ISOLATION PRECAUTION MAINTAINED. WILL CONTINUE TO MONITOR.
--- NOTE | 2017-04-27 20:15 | NUR ---
SECOND UNIT OF BLOOD TRANSFUSION STARTED. VERIFIED BY 2 NURSES. VITAL SIGNS WNL. WILL CONTINUE TO MONITOR.
[2017-04-27] MEDS: PANTOPRAZOLE 40 MG INJ VIAL IVP SCH (20:24)
--- NOTE | 2017-04-27 23:30 | NUR ---
BLOOD TRANSFUSION COMPLETED, NO ADVERSE REACTION.
[2017-04-28] VITALS (24 sets, daily range): BP systolic 78–135; BP diastolic 39–77
[2017-04-28] MEDS: ACETAMINOPHEN 325 MG TAB PO SCH
[2017-04-28] MEDS: diphenhydrAMINE 12.5 MG/5 ML UDC PO SCH
--- NOTE | 2017-04-28 01:15 | NUR ---
0000 DOSE OF TYLENOL AND BENADRYL NOT GIVEN, BLOOD TRANSFUSION COMPLETED 2344. DR. PINEDO NOTIFIED AND HE SAID IT IS OK.
--- NOTE | 2017-04-28 02:30 | NUR ---
DR. PINEDO AWARE PT DOES NOT HAVE FEEDING ORDER YET.
--- NOTE | 2017-04-28 04:45 | NUR ---
CLARIFIED DR. RIVERA WITH TUBE FEEDING ORDER. HE SAID TO START FEEDING AT 20ML/HR.
[2017-04-28 05:12] LABS: BASOPHILS # (AUTO) 0.1 K/uL (0.00-0.22); BASOPHILS % (AUTO) 2.4 % (0.0-2.0); EOSINOPHILS # (AUTO) 0.2 K/uL (0-0.4); EOSINOPHILS % (AUTO) 4.7 % (0.0-4.0); HEMATOCRIT 26.8 % (36-52); HEMOGLOBIN 9.1 g/dL (12.0-18.0); LYMPHOCYTES % (AUTO) 26.2 % (20.5-51.1); MEAN CORPUSCULAR HEMOGLOBIN 29 pg (27-31); MEAN CORPUSCULAR HGB CONC 34 g/dL (33-37); MEAN CORPUSCULAR VOLUME 84 fL (80-94); MONOCYTES # (AUTO) 0.5 K/uL (0.8-1.0); MONOCYTES % (AUTO) 13.6 % (1.7-9.3); NEUTROPHILS # (AUTO) 2.2 K/uL (1.8-7.7); NEUTROPHILS % (AUTO) 53.1 % (42.2-75.2); PLATELET COUNT (AUTO) 225 K/uL (140-450); RED BLOOD CELL COUNT(AUTO) 3.18 MIL/uL (4.20-6.10); RED CELL DISTRIBUTION WIDTH 14.4 % (11.6-13.7)
[2017-04-28] MEDS: ALBUTEROL SULFATE/IPRATROPIU 3 ML SOL IH SCH ×2 (06:40→12:29)
[2017-04-28 06:43] LABS: ANION GAP 17.5 (8-16); CARBON DIOXIDE 17.4 mmol/L (21-32); CREATININE 1.9 mg/dL (0.7-1.3)
--- NOTE | 2017-04-28 06:44 | NUR ---
RECIVED PT ON VENT WITH SETTINGS CHARTED BREATH SOUNDS PRESENT BILAT COARSE SXN PT WITH MIN AMT RUST SECS AMBU BAG BEDSIDE VENT PLUGGED INTO RED OUTLET ANBU BAG AT BEDSIDE WILL CONTINUE TO MONITOR PT ON VENT
[2017-04-28 06:49] LABS: POTASSIUM 2.9 mmol/L (3.5-5.1)
--- NOTE | 2017-04-28 07:15 | NUR ---
REPORT GIVEN TO CRISTO COWAN FOR CONTINUITY OF CARE
--- NOTE | 2017-04-28 07:30 | NUR ---
RECEIVED REPORT FROM NIGHT RN. PT IS NONVERBAL, UNABLE TO FOLLOW COMMANDS. SINUS BRADYCARDIA ON MONITOR. PT IS ETT TO VENT/ SETTINGS AC 20, FIO2 28%, VT 450, PEEP 5. NO SOB NOTED. BREATHING IS EVEN AND UNLABORED. CENTRAL LINE TO LEFT IJ PATENT AND INTACT, RECEIVING NORMAL SALINE AT 125 ML/HR. G-TUBE CONNECTED TO GRAVITY DRAINAGE BAG. J-TUBE IN PLACE RECEIVING TUBE FEEDING. ABDOMEN DISTENDED AND ROUND, BOWEL SOUNDS PRESENT. SCROTAL EDEMA NOTED. SKIN IS DRY AND WARM TO TOUCH. SCDS IN PLACE FOR VTE PROPHYLAXIS. HOB 30 DEGREES, BED IN LOWEST POSITION AND CALL LIGHT WITHIN REACH. WILL CONTINUE TO MONITOR.
[2017-04-28 07:43] LABS: MAGNESIUM 2.7 mg/dL (1.8-2.4); PHOSPHORUS 5.2 mg/dL (2.5-4.9)
--- NOTE | 2017-04-28 08:00 | NUR ---
PT SEEN BY DR. SHETTY AND RESIDENT GROUP. DR. SHETTY MADE AWARE OF PT'S DECREASED HEART RATE OF 50, POTASSIUM LEVEL 2.9. WILL FOLLOW UP ON ORDERS.
[2017-04-28] MEDS: METOCLOPRAMIDE 10 MG/10 ML SYRP UDC GT SCH ×2 (08:18→12:28)
[2017-04-28] MEDS: MIDODRINE 5 MG TAB PO SCH ×2 (08:18→12:28)
[2017-04-28 08:42] LABS: PHENYTOIN (DILANTIN) 19.5 ug/ml (10.0-20.0)
[2017-04-28] MEDS ORDERED: POTASSIUM CHLORIDE 40 MEQ, LIDOCAINE 1% 25 MG in NACL 0.9% 250 ML IV SCH (09:00)
[2017-04-28] MEDS ORDERED: SENNA 8.6 MG TAB PO SCH ×2 (09:00→17:00)
[2017-04-28] MEDS ORDERED: POLYETHYLENE GLYCOL 17 GM/PKT GT SCH (09:00)
--- NOTE | 2017-04-28 09:15 | NUR ---
RECEIVED ON A [employer] R860 VENTILATOR PLUGGED INTO RED OUTLET TOLERATING WELL WITHOUT INCIDENT TO A ENDOTRACHEAL TUBE #8.0 SECURED WITH AN ANCHOR FAST AT 19cm GUM/TEETH CUF PRESSURE CHECKED NOTED AMBU BAG NOTED AT HOB LOC AWAKE BREATH SOUNDS INSO RHONCHI BILATERAL GOOD CHEST RISE ENDOTRACHEAL SUCTION FOR SMALL THICK BLLOD TINGE SECRETIONS AIRWAY PATENT
[2017-04-28] MEDS: CALCIUM ACETATE 667 MG TAB GT SCH ×2 (09:28→12:28)
[2017-04-28] MEDS: MULTIVITAMIN/MINERALS 1 TAB GT SCH (09:29)
[2017-04-28] MEDS: PANTOPRAZOLE 40 MG INJ VIAL IVP SCH (09:35)
[2017-04-28] MEDS: VITAMIN D 400 IU TAB GT SCH (09:35)
[2017-04-28] MEDS: CALCIUM CARBONATE 500 MG TAB GT SCH (09:36)
[2017-04-28] MEDS: levETIRAcetam 100 MG/ML ORASYR GT SCH (09:37)
[2017-04-28] MEDS: OXcarbazepine 150 MG TAB PO SCH (09:38)
[2017-04-28] MEDS: NYSTATIN POW 100 MU/GM 15 GM BTL TP SCH (09:40)
[2017-04-28] MEDS: TIMOLOL OP 0.5% 5 ML BTL OP SCH (09:42)
[2017-04-28] MEDS: LACTOBACILLUS RHAMNOSUS GG 1 EACH CAP GT SCH (09:43)
[2017-04-28] MEDS: NACL 0.9% 1,000 ML IV SCH (09:43)
--- NOTE | 2017-04-28 10:00 | NUR ---
NO CHANGE OF CONDITION AT THIS TIME. VITAL SIGNS STABLE. SAFETY PRECAUTIONS IN PLACE. HOB AT 30 DEGREES AND CALL LIGHT WITHIN REACH. WILL CONTINUE TO MONITOR.
--- NOTE | 2017-04-28 10:53 | NUR ---
CM NOTE PATIENT TO BE PICKED UP VIA GURNEY BY [facility] GOING TO [facility] W/ [employer]UKE[employer] OPERATOR, RM ICU-2. ETA 1500. DR. SOLOMON & ESTEE PALMA MADE AWARE. # FOR REPORT: [phone] (ASK FOR ICU).
--- NOTE | 2017-04-28 11:00 | NUR ---
LEFT MESSAGE TO SAYDA SHAIKH AT [phone], [employer]ING [employer] LABORER AT [facility] REGARDING PATIENT'S TRANSFER TO [facility].
[2017-04-28] MEDS ORDERED: NA P133E3 RC (11:18)
[2017-04-28] MEDS ORDERED: IPRA3AMP IH ×2 (11:18)
[2017-04-28] MEDS ORDERED: Hydraguard TP (11:18)
[2017-04-28] MEDS ORDERED: PHO667 GT (11:18)
[2017-04-28] MEDS ORDERED: POLY17PD46 GT (11:18)
[2017-04-28] MEDS ORDERED: SENN-89 JT (11:18)
[2017-04-28] MEDS ORDERED: VITD400 JT (11:18)
[2017-04-28] MEDS ORDERED: ONDA2SOL45 IVP (11:18)
[2017-04-28] MEDS ORDERED: ACET650S53 GT (11:18)
[2017-04-28] MEDS ORDERED: BISA10SU46 RC (11:18)
[2017-04-28] MEDS ORDERED: PRO5 PO (11:18)
[2017-04-28] MEDS ORDERED: OSC500 GT (11:18)
[2017-04-28] MEDS ORDERED: PANT40PD7 IVP (11:18)
[2017-04-28] MEDS ORDERED: [UNRECOGNIZED DRUG - CODE] PO (11:18)
[2017-04-28] MEDS ORDERED: LACT10CA GT (11:18)
[2017-04-28] MEDS ORDERED: METO5SOL20 GT (11:18)
[2017-04-28] MEDS ORDERED: MULT-1736 GT (11:18)
[2017-04-28] MEDS ORDERED: Vancomycin Per Pharmacy JT (11:18)
[2017-04-28] MEDS ORDERED: OXCA300T JT (11:27)
[2017-04-28] MEDS ORDERED: CARB100S JT (11:27)
--- NOTE | 2017-04-28 11:31 | NUR ---
RESTING WELL NO PULMONARY DISTRESS NOTED GOOD CHEST RISE AIRWAY PATENT
[2017-04-28] MEDS ORDERED: VANC750P10 IV (11:33)
[2017-04-28] MEDS ORDERED: CEFE1SOL IV (11:33)
--- NOTE | 2017-04-28 11:40 | NUR ---
DR. FALCON IN TO SEE PT. WILL FOLLOW UP ON ORDERS.
[2017-04-28] MEDS ORDERED: FLUC200T PO (11:41)
--- NOTE | 2017-04-28 12:10 | NUR ---
CARLOS LEMONS FROM [facility] MADE AWARE OF PATIENT'S TRANSFER TO [facility].
[2017-04-28] MEDS ORDERED: OXCA600T2 PO (12:16)
[2017-04-28] MEDS ORDERED: CARB200T1 PO (12:16)
[2017-04-28] MEDS ORDERED: PHEN100C3 PO (12:17)
[2017-04-28] MEDS: FLUCONAZOLE 200 MG/NS PREMIX 100 ML IV SCH (12:28)
--- NOTE | 2017-04-28 12:29 | NUR ---
NO APPARENT DISTRESS NOTED BREATH SOUNDS CLEAR LEFT SIDE TO DIFFUSED INSP RHONCHI RIGHT SIDE GOOD CHEST RISE SUCTION FOR SMALL SCATTERED THICK BLOOD TINGE SECRETIONS AIRWAY PATENT
--- NOTE | 2017-04-28 13:20 | NUR ---
REPORT GIVEN TO CRISTO PONCE AT [facility] [place]. CONFIRMED PT WILL BE TRANSFERRED TO ICU 2 AT [facility] UNDER THE CARE OF DR. HAMEED.
--- NOTE | 2017-04-28 14:36 | NUR ---
04/28/17 RD FOLLOW UP COMPLETED. PLEASE REFER TO NUTRITION ASSESSMENT UNDER CARE ACTIVITY FOR ESTIMATED NUTRITIONAL NEEDS. 1.CONTINUE CURRENT DIET: FIBERSOURCE HN 1.2 @ 20ML/HOUR, GOAL RATE 60ML/HOUR. GOAL RATE TO PROVIDE 1728 KCALS AND 78 GM PRO PER DAY TO MEET 92% EST KCALS AND 87% EST GM PRO PER DAY. RD TO FOLLOW-UP IN 2-3 DAYS PATIENT IS HIGH RISK. POPEYE JEFFRIES, RD
--- NOTE | 2017-04-28 15:00 | NUR ---
NO SOB NOTED GOOD CHEST RISE TOLERATING VENTILATORY SUPPORT WITHOUT ADVERSE REACTIONS NOTED
--- NOTE | 2017-04-28 15:40 | NUR ---
PT TRANSFERRED TO [facility] ASSISTS. VITAL SIGNS STABLE UPON DISCHARGE. NO S/SX OF DISTRESS NOTED.
--- NOTE | 2017-04-28 16:45 | NUR ---
I attempted to contact patient's [facility] upper caser Larissa Lagos to discuss patient's status/condition and transfer to [facility]. I got No response; I left her a MSG with request to call me back as soon as possible
[2017-04-28] MEDS ORDERED: POLYETHYLENE GLYCOL 17 GM/PKT PO SCH (21:00)
[2017-04-29] MEDS ORDERED: POTASSIUM CHLORIDE 20% 40 MEQ/15 ML UDC GT SCH (09:00)
== END 2017-04-28 15:40 | DRG 870 ==
LOC: MED 09:12 → MTU 10:31 → MIC 19:33 → MTU 22:22 → MIC 22:31 → MTU 04-14 14:30 → MIC 04-20 10:23
PROVIDERS: ADMIT Family Medicine Sports Medicine; ATTEND Family Medicine Sports Medicine
PROC: 02HV33Z Insertion of Infusion Device into Superior Vena Cava, Percutaneous Approach (ICD-10-PCS; 2017-04-13)
PROC: 5A1955Z Respiratory Ventilation, Greater than 96 Consecutive Hours (ICD-10-PCS; principal; 2017-04-20)
PROC: 5A09357 Assistance with Respiratory Ventilation, Less than 24 Consecutive Hours, Continuous Positive Airway Pressure (ICD-10-PCS; 2017-04-20)
PROC: 0BH17EZ Insertion of Endotracheal Airway into Trachea, Via Natural or Artificial Opening (ICD-10-PCS; 2017-04-20)
PROC: 5A12012 Performance of Cardiac Output, Single, Manual (ICD-10-PCS; 2017-04-23)
PROC: 30233N1 Transfusion of Nonautologous Red Blood Cells into Peripheral Vein, Percutaneous Approach (ICD-10-PCS; 2017-04-27)
PROC: 0DHA8UZ Insertion of Feeding Device into Jejunum, Via Natural or Artificial Opening Endoscopic (ICD-10-PCS; 2017-04-27)
DX: A41.9 Sepsis, unspecified organism (principal); N17.0 Acute kidney failure with tubular necrosis; J96.21 Acute and chronic respiratory failure with hypoxia; J69.0 Pneumonitis due to inhalation of food and vomit; G93.41 Metabolic encephalopathy; E43 Unspecified severe protein-calorie malnutrition; I50.43 Acute on chronic combined systolic (congestive) and diastolic (congestive) heart failure; K31.1 Adult hypertrophic pyloric stenosis; I46.9 Cardiac arrest, cause unspecified; E87.1 Hypo-osmolality and hyponatremia; Q85.8 Other phakomatoses, not elsewhere classified; N39.0 Urinary tract infection, site not specified; F72 Severe intellectual disabilities; J98.11 Atelectasis; G40.201 Localization-related (focal) (partial) symptomatic epilepsy and epileptic syndromes with complex partial seizures, not intractable, with status epilepticus; I13.0 Hypertensive heart and chronic kidney disease with heart failure and stage 1 through stage 4 chronic kidney disease, or unspecified chronic kidney disease; K31.84 Gastroparesis; E83.39 Other disorders of phosphorus metabolism; E78.5 Hyperlipidemia, unspecified; M81.0 Age-related osteoporosis without current pathological fracture; H40.9 Unspecified glaucoma; B96.4 Proteus (mirabilis) (morganii) as the cause of diseases classified elsewhere; E83.42 Hypomagnesemia; E87.6 Hypokalemia; K21.9 Gastro-esophageal reflux disease without esophagitis; K27.9 Peptic ulcer, site unspecified, unspecified as acute or chronic, without hemorrhage or perforation; N18.9 Chronic kidney disease, unspecified; G40.401 Other generalized epilepsy and epileptic syndromes, not intractable, with status epilepticus; G46.3 Brain stem stroke syndrome; R13.11 Dysphagia, oral phase; K59.00 Constipation, unspecified; E87.8 Other disorders of electrolyte and fluid balance, not elsewhere classified; E83.51 Hypocalcemia; D64.9 Anemia, unspecified; J44.9 Chronic obstructive pulmonary disease, unspecified; Y95 Nosocomial condition; E66.3 Overweight; Z22.322 Carrier or suspected carrier of Methicillin resistant Staphylococcus aureus; Z88.8 Allergy status to other drugs, medicaments and biological substances; Z93.4 Other artificial openings of gastrointestinal tract status; Z68.26 Body mass index [BMI] 26.0-26.9, adult; Z93.1 Gastrostomy status
CPT/HCPCS: 36415; 36600; 70450; 71045; 74018; 76604; 76705; 76770; 76870; 80048; 80076; 80156; 80173; 80184; 80185; 80202; 80305; 81001; 82040; 82140; 82150; 82550; 82803; 82948; 83036; 83605; 83690; 83735; 83880; 83930; 83935; 84100; 84300; 84439; 84443; 84484; 85025; 85610; 85730; 86886; 86900; 86901; 86920; 87040; 87070; 87081; 87086; 87186; 87205; 89220; 92610; 93005; 94002; 94003; 94640; 94660; 96361; 96365; 96366; 96367; 96375; 97799; 99285; C1758; C9113; J0692; J1165; J1200; J1364; J1450; J1642; J1885; J1940; J2001; J2060; J2250; J2543; J2710; J3010; J3370; J3475; J3480; J3490; J7030; J7060; J7620; J8597; P9016; Q0092; Q0163